=== PATIENT | male | born 1940 | race Caucasian/White ===

== ENCOUNTER 2019-04-06 02:43 | Inpatient (IN) | payer MEDICARE, MEDICAID ==
[~2019-04-06] VITALS: Ht 172.7 cm; Wt 74.8 kg
[~2019-04-06 02:43] MED LIST: BENA20TA9 PO; CALC1TAB49 PO; DIVA250T4 PO; DONE10TA44 PO; METF-441 PO; METO50TA16 PO; QUET25TA PO; SIMV20TA6 PO; SITA100T PO
[2019-04-06] MEDS ORDERED: ACETAMINOPHEN 650 MG/SUPP.RECT RC ONE ×3 (03:00→03:02)
[2019-04-06] MEDS ORDERED: IV NS 0.9% 1,000 ML BAG IV ONE (03:00)
[2019-04-06] MEDS ORDERED: VANCOMYCIN 1 GM in IV D5W 250 ML IV ONE (03:00)
[2019-04-06] MEDS ORDERED: CEFEPIME 1 GM in IV D5W 50 ML IV ONE (03:00)
[2019-04-06] MEDS ORDERED: CEFEPIME 1 GM VIAL ONE (03:01)
[2019-04-06] MEDS ORDERED: VANCOMYCIN 1 GM VIAL ONE (03:01)
[2019-04-06 03:06] LABS: BASOPHILS # (AUTO) 0.1 /CMM (0.0-0.2); BASOPHILS % (AUTO) 0.3 % (0.0-2.0); HEMATOCRIT 51 % (39-51); HEMOGLOBIN 16.2 g/dL (13.5-17.5); LYMPHOCYTES # (AUTO) 1.6 /CMM (0.8-4.8); LYMPHOCYTES % (AUTO) 5.9 % (20.0-44.0); MEAN CORPUSCULAR HGB CONC 32 g/dl (31.0-36.0); MEAN CORPUSCULAR VOLUME 92 fL (80-96); MONOCYTES # (AUTO) 1.2 /CMM (0.1-1.30); MONOCYTES % (AUTO) 4.5 % (2.0-12.0); NEUTROPHILS # (AUTO) 23.8 /CMM (1.8-8.9); NEUTROPHILS % (AUTO) 89.3 % (43.0-81.0); PLATELET COUNT (AUTO) 188 /CMM (150-450); RED BLOOD CELL COUNT(AUTO) 5.62 MIL/uL (4.5-6.0); WHITE BLOOD COUNT (AUTO) 26.7 K/uL (4.3-11.0)
--- NOTE | 2019-04-06 03:12 | NUR ---
MARY FROM [facility] FOR 102.3 FEVER PER EMS, HX OF PNA. TEMP OF 102.8 AT TIME OF ARRIVAL. LINE IN, BLOOD DRAWN, URINE COLLECTED AND SENT TO LAB, CONNECTED TO MONITOR, ORDERS RECEIVED AND CARRIED OUT
[2019-04-06 03:17] LABS: CALCIUM, SERUM 10.2 mg/dL (8.5-10.1); CARBON DIOXIDE 33 mmol/L (21-32); CHLORIDE 124 mmol/L (98-107); CREATININE 2.8 mg/dL (0.6-1.3); GLUCOSE 331 mg/dL (74-106); UREA NITROGEN, BLOOD 67 mg/dL (7-18)
[2019-04-06 03:18] LABS: SODIUM SERUM 168 mmol/L (136-145)
[2019-04-06 03:24] LABS: ALANINE AMINOTRANSFERASE 34 U/L (12-78); ALBUMIN 2.9 g/dL (3.4-5.0); ALKALINE PHOSPHATASE 101 U/L (46-116); ASPARTATE AMINOTRANSFERASE 19 U/L (15-37); BILIRUBIN,DIRECT 0.2 mg/dL (0.0-0.2); BILIRUBIN,TOTAL 0.6 mg/dL (0.2-1.0)
--- NOTE | 2019-04-06 03:28 | NUR ---
CRITICAL LAB CALLED SODIUM 168
--- NOTE | 2019-04-06 04:00 | NUR ---
RT CALLED TO PUT PT ON BIPAP. PT CURRENTLY SATING AT 91% ON NC 4L, INTERMITANTLY DESATING TO 85%
[2019-04-06 04:22] LABS: APPEARANCE,URINE Clear (CLEAR); BILIRUBIN,URINE SMALL (NEGATIVE); BLOOD, URINE Negative Ery/uL (NEGATIVE); COLOR,URINE Dark (YELLOW); KETONES,URINE Trace (NEGATIVE); LEUKOCYTE ESTERASE ,URINE Negative (NEGATIVE); NITRITE, URINE Negative (NEGATIVE); PH,URINE 5.5 (5.0-8.0); PROTEIN,URINE 100 mg/dl (NEGATIVE); UGLUCOSE 500 MG/DL mg/dL (NEGATIVE); UROBILINOGEN,URINE 0.2 EU/dL (0.2)
[2019-04-06 04:47] LABS: BACTERIA,URINE Few /HPF (None Seen); RBC,URINE 21-50 /HPF (0-2); SQUAMOUS EPITHELIAL CELL,UR Rare /HPF (None Seen)
--- NOTE | 2019-04-06 05:26 | NUR ---
Pt rec'd on nasal cannula 5lpm. Pt showed signs of resp distress. PT placed on bipap per Dr Mcfadden request. Pt placed on noted settings as charted. Alarms are set and audible. Vent plugged into red outlet. Ambu bag bedside. Will continue to monitor. Addendum: 04/06/19 at 0640 by MARLEN RAMOS RT Amended: Links added.
--- NOTE | 2019-04-06 05:38 | NUR ---
RT DRAWING ABG AT BEDSIDE
[2019-04-06 05:50] LABS: ABG BASE EXCESS 0.6 mmol/L; ABG OXYGEN SATURATION 90.4 % (92.0-98.5); ABG PCO2 44.7 mmHg (35.0-45.0); ABG PH 7.383 (7.350-7.450); ABG PO2 62.2 mmHg (75.0-100.0); AaDO2 316.4 mmHg; COHb 1.2 % (0.5-1.5); MetHb 0.4 % (0.0-1.5); SITE, ABG Right Radial
--- NOTE | 2019-04-06 05:50 | NUR ---
TRASNFERED TO [place] VIA [facility]SP[facility]
--- NOTE | 2019-04-06 05:55 | NUR ---
BIBPAP 15/5, RESP 12, FIO2 80%
--- NOTE | 2019-04-06 06:20 | NUR ---
RECEIVED PATIENT FROM ER ,LETHARGIC (TRANSPORTED ON NMR 100%) ,BUT PATIENT WAS ON BIPAP IN ER DUE TO LOW O2.pATIENT IS DNI/DNR. PRESENTED TO ER FROM [facility] DUE TO FEVER OF 102.3. IN ER TEMP STILL HIGH 102.8 WAS GIVEN TYLENOL. LACTIC ACID WAS 2.7,GIVEN TOTAL2.5 LITERS BOLUS.
[2019-04-06] MEDS ORDERED: IV D5W 1,000 ML IV PRN (06:23)
[2019-04-06] MEDS ORDERED: QUETIAPINE FUMARATE 25 MG TABLET PO PRN ×2 (06:30→07:30)
[2019-04-06] MEDS ORDERED: ENOXAPARIN SODIUM 40 MG/0.4 ML DISP.SYRIN SQ SCH (06:30)
[2019-04-06] MEDS ORDERED: Z GUARD REMEDY 2 OZ OINT TP PRN (06:30)
[2019-04-06] MEDS ORDERED: ONDANSETRON HCL/PF 4 MG/2 ML VIAL IVP PRN (06:30)
--- NOTE | 2019-04-06 07:00 | NUR ---
REPORT GIVEN TO FAWAD SILVA.
[2019-04-06 08:00] VITALS: BP 118/69
[2019-04-06] MEDS ORDERED: FEE PK DOSING 1 MIN EA MC ONE (08:18)
--- NOTE | 2019-04-06 08:30 | NUR ---
RN NOTE: PATIENT RECEIVED ASLEEP, ABLE TO OPEN EYES TO VERBAL & TACTILE STIMULI. CONTINUE WITH BIPAP, SETTINGS TOLERATING WELL. SAFETY MEASURES OBSERVED. ASPIRATION PRECAUTIONS OBSERVED. IV FLUIDS RUNNING ORDERED BY . LOERA CATH DRAINING WITH GRAVITY. CONTINUE TO TURN & REPOSITION Q2H. CONTINUE WITH PLAN OF CARE.
[2019-04-06] MEDS: METOPROLOL SUCCINATE 50 MG TAB.SR.24H PO SCH ×3 (09:00→21:37)
[2019-04-06] MEDS ORDERED: ENOXAPARIN SODIUM 30 MG/0.3 ML DISP.SYRIN SQ SCH (09:00)
[2019-04-06] MEDS ORDERED: MEROPENEM 500 MG in IV NS 0.9% 50 ML IV ONE (09:00)
[2019-04-06] MEDS: DIVALPROEX SODIUM 250 MG TABLET.DR PO SCH ×2 (09:00→12:39)
[2019-04-06] MEDS: HEPARIN SODIUM, PORCINE 5000 UNITS/1 ML VIAL SQ SCH ×2 (09:12→21:38)
[2019-04-06] MEDS ORDERED: DEXTROSE 50%-WATER 50 ML DISP.SYRIN IV PRN (09:30)
[2019-04-06] MEDS: IV 1/2NS 1000 ML 1,000 ML IV PRN ×2 (09:51→21:12)
[2019-04-06 11:15] LABS: CARBON DIOXIDE 28 mmol/L (21-32); CREATININE 2.4 mg/dL (0.6-1.3); POTASSIUM 4.2 mmol/L (3.5-5.1); UREA NITROGEN, BLOOD 68 mg/dL (7-18)
[2019-04-06 11:18] LABS: CHLORIDE 128 mmol/L (98-107); GLUCOSE 439 mg/dL (74-106); SODIUM SERUM 167 mmol/L (136-145)
[2019-04-06] MEDS: BLOOD SUGAR DIAGNOSTIC 1 EACH STRIP IN SCH ×2 (11:42→17:19)
[2019-04-06] MEDS: INSULIN REGULAR, HUMAN 100 UNIT/ML 3 ML VIAL SQ PRN ×2 (11:43→17:20)
[2019-04-06 12:00] VITALS: BP 122/56
[2019-04-06 13:09] LABS: CREATININE, URINE 335.2 MG/DL (30.0-125.0); URINE TOTAL PROTEIN 111.1 mg/dL (0-11.9)
[2019-04-06 13:42] LABS: APPEARANCE,URINE Cloudy (CLEAR); BILIRUBIN,URINE SMALL (NEGATIVE); BLOOD, URINE Large Ery/uL (NEGATIVE); COLOR,URINE Yellow (YELLOW); KETONES,URINE Trace (NEGATIVE); LEUKOCYTE ESTERASE ,URINE Negative (NEGATIVE); NITRITE, URINE Negative (NEGATIVE); PROTEIN,URINE 100 mg/dl (NEGATIVE); UGLUCOSE 100 MG/DL mg/dL (NEGATIVE); UROBILINOGEN,URINE 0.2 EU/dL (0.2)
[2019-04-06 15:06] LABS: RBC,URINE 40-50 /HPF (0-2)
[2019-04-06 15:07] LABS: BACTERIA,URINE Moderate /HPF (None Seen)
[2019-04-06 15:08] LABS: EOSINOPHIL,URINE None Seen; SQUAMOUS EPITHELIAL CELL,UR Few /HPF (None Seen)
--- NOTE | 2019-04-06 15:09 | NUR ---
RT NOTE PT REMAINS ON BIPAP ON SETTINGS PRESCRIBED. ALARMS SET PER PROTOCOL AND AUDIBLE. BIPAP PLUGGED IN TO RED OUTLET. AMBU BAG AT BED SIDE. NO DISTRESS NOTED. Addendum: 04/06/19 at 1512 by SHANTEL VIEIRA RT Amended: Links added.
[2019-04-06 16:00] VITALS: BP 114/67
[2019-04-06 16:06] VITALS: BP 114/67
[2019-04-06] MEDS: MEROPENEM 500 MG in IV NS 0.9% 100 ML IV SCH (17:19)
[2019-04-06 20:00] VITALS: BP 116/70
--- NOTE | 2019-04-06 20:00 | NUR ---
RN NOTES RECEIVED PATIENT ASLEEP ON BED WITH BIPAP 15/5 RATE 12 FIO2 80%, NO APPARENT DISTRESS. LETHARGIC ABLE TO OPEN EYES. ST ON TELE MONITOR. AFEBRILE. WITH IV SITE ON RAC G 18 WITH 1/2 NS @ 125 ML/HR TOLERATED WELL. BILATERAL RESTRAINT IN PLACE CIRCULATION CHECKED. TURNED AND REPOSITIONED FOR SKIN MANAGEMENT. KEPT PT CLEAN AND DRY. BED IN LOW AND LOCKED POSITION. WILL CONTINUE TO MONITOR FOR ANY CHANGES.
[2019-04-06] MEDS: VALPROATE 250 MG in IV NS 0.9% 100 ML IV SCH (21:32)
[2019-04-06] MEDS: SIMVASTATIN 20 MG TABLET PO SCH ×2 (21:33→21:53)
[2019-04-06] MEDS: DONEPEZIL 5 MG TABLET PO SCH ×2 (21:33→21:53)
[2019-04-07] VITALS: BP 110/62
[2019-04-07] MEDS: INSULIN REGULAR, HUMAN 100 UNIT/ML 3 ML VIAL SQ PRN ×4 (01:40→18:11)
[2019-04-07 04:00] VITALS: BP 125/59
[2019-04-07] MEDS: VALPROATE 250 MG in IV NS 0.9% 100 ML IV SCH ×3 (04:51→22:27)
--- NOTE | 2019-04-07 05:10 | NUR ---
rt unable to complete ekg due to pt agitation
--- NOTE | 2019-04-07 05:14 | NUR ---
pt removed from bipap and placed on n/c 6l. no resp distress noted. Addendum: 04/07/19 at 0514 by VIRIDIANA GARZON Amended: Links added.
[2019-04-07] MEDS: MEROPENEM 500 MG in IV NS 0.9% 100 ML IV SCH ×2 (05:42→17:56)
[2019-04-07] MEDS: BLOOD SUGAR DIAGNOSTIC 1 EACH STRIP IN SCH ×4 (05:42→18:06)
--- NOTE | 2019-04-07 07:00 | NUR ---
RN NOTES PATIENT ASLEEP ,RESTLESSNESS PRESENT ON BED MOVING AROUND THE BED . PATIENT REMAINED NON VERBAL. OPENS EYES. BIPAP OFF AND PLACED ON O2 5LPM VIA NC AND TOLERATED WELL. NSR ON TELE MONITOR. AFEBRILE. VSS. CONTINUE ON IVF ORDERED. IV SITE INTACT AND PATENT. F/C DRAINED WELL WITH BRADLEY COLOR URINE. KEPT OFF FROM THE FLOOR. BED KEPT IN LOWEST POSSIBLE POSITION. PADDED SIDERAILS , NO EPISODE OF SEIZURE PRESENT. KEPT PT CLEAN AND DRY. ENDORSED CONTINUITY OF CARE TO AM NURSE.
[2019-04-07 07:03] LABS: BASOPHILS % (AUTO) 0.2 % (0.0-2.0); HEMATOCRIT 43 % (39-51); HEMOGLOBIN 13.1 g/dL (13.5-17.5); LYMPHOCYTES # (AUTO) 1.7 /CMM (0.8-4.8); LYMPHOCYTES % (AUTO) 8.6 % (20.0-44.0); MEAN CORPUSCULAR HGB CONC 31 g/dl (31.0-36.0); MEAN CORPUSCULAR VOLUME 91 fL (80-96); MONOCYTES # (AUTO) 1.2 /CMM (0.1-1.30); MONOCYTES % (AUTO) 6.1 % (2.0-12.0); NEUTROPHILS # (AUTO) 17.1 /CMM (1.8-8.9); NEUTROPHILS % (AUTO) 85.1 % (43.0-81.0); PLATELET COUNT (AUTO) 119 /CMM (150-450); RED BLOOD CELL COUNT(AUTO) 4.65 MIL/uL (4.5-6.0); WHITE BLOOD COUNT (AUTO) 20.1 K/uL (4.3-11.0)
--- NOTE | 2019-04-07 07:20 | NUR ---
RN INITIAL NOTE RECEIVED BEDSIDE REPORT, PATIENT IN BED, ASLEEP BUT EASILY AROUSABLE. OPENS EYES. DOES NOT FOLLOW COMMANDS, VERY LETHARGIC. PER NOC SHIFT. THIS IS THE PATIENT'S BASELINE. ON 5L NC, SATING WELL AT 95%. ON TELE MONITOR, SR. PATIENT HAS BILATERAL WRIST RESTRAINTS. HAS RIGHT AC #18 WITH HALF NS AT 125 ML/HR. NO SIGNS OF ANY DISTRESS. HAS LOERA CATH WITH CLEAR AND YELLOW URINE. BED LOCKED AND IN LOWEST POSITION. CALL LIGHT WITHIN REACH. WILL CONTINUE TO MONITOR CLOSELY
[2019-04-07 07:36] LABS: ALANINE AMINOTRANSFERASE 19 U/L (12-78); ALBUMIN 2.1 g/dL (3.4-5.0); ALKALINE PHOSPHATASE 82 U/L (46-116); ASPARTATE AMINOTRANSFERASE 22 U/L (15-37); BILIRUBIN,TOTAL 0.5 mg/dL (0.2-1.0); CALCIUM, SERUM 8.8 mg/dL (8.5-10.1); CARBON DIOXIDE 29 mmol/L (21-32); CREATININE 1.9 mg/dL (0.6-1.3); GLUCOSE 224 mg/dL (74-106); MAGNESIUM 2.1 mg/dL (1.8-2.4); PHOSPHORUS 2.8 mg/dL (2.5-4.9); POTASSIUM 3.3 mmol/L (3.5-5.1); TOTAL PROTEIN, SERUM 6.7 g/dL (6.4-8.2); UREA NITROGEN, BLOOD 60 mg/dL (7-18)
[2019-04-07 07:43] LABS: CHLORIDE 127 mmol/L (98-107); SODIUM SERUM 166 mmol/L (136-145)
[2019-04-07 07:44] LABS: CHOLESTEROL 91 mg/dL (<200); CREATINE KINASE, TOTAL 637 U/L (39-308); HDL CHOLESTEROL 30 mg/dL (40-60); IRON, SERUM 13 ug/dl (50-175); LDL 47 mg/dL (0-99); THYROID STIMULATING HORMONE 1.503 uIU/mL (0.358-3.74); TOTAL IRON BINDING CAPACITY 130 ug/dl (250-450); TRIGLYCERIDES 103 mg/dL (30-150)
[2019-04-07 08:00] VITALS: BP 136/80
--- NOTE | 2019-04-07 08:02 | NUR ---
WOUND CARE CONSULT: PT PRESENTS WITH ABRASION TO LEFT ARM, SACRAL BONY AREA WITH REDNESS (BLANCHABLE), INCONTINENCE ASSOCIATED SKIN DAMAGE TO BUTTOCKS WITH RASH TO BUTTOCKS AND PERINEUM AND INTACT DEEP TISSUE INJURY TO NASAL BRIDGE, ALL PRESENT ON ADMISSION. PT PREVIOUSLY WAS ON BIPAP. LOERA CATH NOTED. RECOMMENDATIONS MADE FOR SKIN PROTECTION AND WOUND CARE. DISCUSSED WITH NURSING STAFF. PT ON [place] ISOFLEX LOW AIRLOSS BED. CURRENT MEMO SCORE IS 14. WILL SEE PRN. SINGLETON IN AGREEMENT WITH PLAN OF CARE. Addendum: 04/07/19 at 0805 by KEI CASTANEDA WNDNU Amended: Links added.
[2019-04-07] MEDS: ASPIRIN EC 81 MG TABLET.DR PO SCH ×2 (08:55→09:27)
[2019-04-07] MEDS: METOPROLOL SUCCINATE 50 MG TAB.SR.24H PO SCH ×3 (08:55→22:27)
[2019-04-07] MEDS: IV D5W 1,000 ML IV PRN (08:59)
[2019-04-07] MEDS: HEPARIN SODIUM, PORCINE 5000 UNITS/1 ML VIAL SQ SCH ×2 (09:02→22:28)
[2019-04-07] MEDS: CLOTRIMAZOLE 1% 15 GM TUBE TP SCH ×2 (09:29→16:15)
--- NOTE | 2019-04-07 09:30 | NUR ---
RN NOTE TALKED TO PATIENT'S EX , STATING SHE IS THE PATIENT'S DPOA. PER EX , PATIENT HAD A RECENT CVA, ~A WEEK AGO. SPEECH THERAPIST AT BEDSIDE. WAS ABLE TO TOLERATE PUREED DIET WITH HONEY THICK LIQUIDS. WAS ABLE TO GIVE MORNING MEDS, CRUSHED WITH APPLE SAUCE. WOUND CARE NURSE ALSO SEEN PATIENT - TO GIVE LOTRIMIN CREAM, Z GUARD AND COVER WITH MEPILEX FOR PROTECTION OF SACRUM
[2019-04-07 10:37] LABS: ABG OXYGEN SATURATION 88.1 % (92.0-98.5); ABG PCO2 39.1 mmHg (35.0-45.0); ABG PH 7.414 (7.350-7.450); ABG PO2 55.7 mmHg (75.0-100.0); AaDO2 47.2 mmHg; COHb 0.3 % (0.5-1.5); MetHb 0.4 % (0.0-1.5); O2Hb 87.5 % (94.0-97.0); SITE, ABG Right Brachial; VENT MODE, BG room air
[2019-04-07] MEDS ORDERED: POTASSIUM CHLORIDE 10 MEQ TABLET.SA PO ONE (11:30)
[2019-04-07] MEDS ORDERED: VANCOMYCIN 1 GM in IV D5W 250 ML IV SCH (15:00)
[2019-04-07 16:00] VITALS: BP 114/73
--- NOTE | 2019-04-07 18:45 | NUR ---
RN CLOSING NOTE PATIENT IN BED, ASLEEP BUT EASILY AROUSABLE. ALERT AND ORIENTED X1 ONLY. ON 5L NC, SATING WELL >95%. HOB AT 40 DEGREES AT ALL TIMES FOR ASPIRATION PRECAUTIONS. ON BILATERAL RESTRAINTS TO BE RENEWED AT 0650. HAS A RIGHT AC #18 WITH D5W RUNNING AT 125 ML/HR. LAST ACCUCHECK WAS 371, INSULIN COVERAGE GIVEN 10 UNITS. K WAS REPLACED PO. NA 166, AWARE. WOUND TX DONE. REPOSITIONED PATIENT PER PROTOCOL. HAS LOERA CATH WITH 850 ML OUTPUT. HAD 1X BM. BIPAP AT NIGHT AND PER WOUND CARE NURSE - APPLY MEPILEX OVER NASAL BRIDGE FOR PROTECTION. PATIENT HAD A RECENT CVA LAST 02/2019. EKG DONE TODAY - SR. WILL ENDORSE TO NOC SHIFT FOR EDA
[2019-04-07 20:00] VITALS: BP 103/63
--- NOTE | 2019-04-07 20:00 | NUR ---
RN INITIAL NOTE RECEIVED BEDSIDE REPORT, PATIENT IN BED, AWAKE , OPENS EYES. DOES NOT FOLLOW COMMANDS, VERY LETHARGIC AND PER AM SHIFT RN THIS IS THE PATIENT'S BASELINE. ON 5L NC, SATING WELL AT 96%. ON TELE MONITOR, SR. PATIENT HAS BILATERAL WRIST RESTRAINTS. HAS RIGHT AC #18 WITH HALF NS AT 125 ML/HR. NO SIGNS OF ANY DISTRESS. HAS LOERA CATH WITH CLEAR AND YELLOW URINE. BED LOCKED AND IN LOWEST POSITION. CALL LIGHT WITHIN REACH. WILL CONTINUE TO MONITOR CLOSELY
[2019-04-07] MEDS: DONEPEZIL 5 MG TABLET PO SCH (22:25)
[2019-04-07] MEDS: SIMVASTATIN 20 MG TABLET PO SCH (22:27)
[2019-04-07] MEDS: ACETAMINOPHEN 325 MG TABLET PO PRN (22:37)
--- NOTE | 2019-04-08 00:15 | NUR ---
RN NOTES PATIENT IS IN PAIN . CALLED MD NAVARRO AND NEW ORDER OF NORCO 5-[address] WILL CONTINUE TO MONITOR PATIENT CLOSELY.
[2019-04-08] MEDS: HYDROCODONE/APAP 5/325MG 1 EACH TABLET PO PRN (00:35)
[2019-04-08] MEDS: BLOOD SUGAR DIAGNOSTIC 1 EACH STRIP IN SCH ×5 (00:35→23:46)
[2019-04-08] MEDS: INSULIN REGULAR, HUMAN 100 UNIT/ML 3 ML VIAL SQ PRN ×5 (00:47→23:44)
[2019-04-08] MEDS: IV D5W 1,000 ML IV PRN ×2 (01:17→12:36)
--- NOTE | 2019-04-08 02:00 | NUR ---
PATIENT REPORT IS GIVEN TO RICARDO BARKER TRANSFER OF CARE. NO CHANGES NOTED WITH THE PATIENT.
[2019-04-08 04:00] VITALS: BP 125/67
[2019-04-08] MEDS: MEROPENEM 500 MG in IV NS 0.9% 100 ML IV SCH ×2 (05:40→21:00)
[2019-04-08] MEDS: VALPROATE 250 MG in IV NS 0.9% 100 ML IV SCH ×2 (05:40→12:26)
[2019-04-08 06:53] LABS: BASOPHILS # (AUTO) 0.1 /CMM (0.0-0.2); BASOPHILS % (AUTO) 0.6 % (0.0-2.0); EOSINOPHILS % (AUTO) 1.9 % (0.0-6.0); HEMATOCRIT 39 % (39-51); HEMOGLOBIN 12.5 g/dL (13.5-17.5); LYMPHOCYTES # (AUTO) 1.6 /CMM (0.8-4.8); LYMPHOCYTES % (AUTO) 7.9 % (20.0-44.0); MEAN CORPUSCULAR HGB CONC 32 g/dl (31.0-36.0); MEAN CORPUSCULAR VOLUME 91 fL (80-96); MONOCYTES % (AUTO) 5.1 % (2.0-12.0); NEUTROPHILS # (AUTO) 16.8 /CMM (1.8-8.9); NEUTROPHILS % (AUTO) 84.5 % (43.0-81.0); PLATELET COUNT (AUTO) 110 /CMM (150-450); RED BLOOD CELL COUNT(AUTO) 4.26 MIL/uL (4.5-6.0); WHITE BLOOD COUNT (AUTO) 19.9 K/uL (4.3-11.0)
--- NOTE | 2019-04-08 07:00 | NUR ---
PATIENT REMAINED IN BED, RESTING COMFORTABLY, ON BIPAP WITH PRESCRIBED SETTINGS, TOLERATING WELL, O2 SATURATION 98%, NO S/S OF PAIN NOTED. ALL DUE MEDS GIVEN ORDERED, TOLERATED WELL. ALL NEEDS ATTENDANT, SAFETY MAINTAINED, BED AT THE LOWEST LOCKED POSITION. WILL ENDORSE TO AM SHIFT NURSE FOR EDA.
[2019-04-08 07:01] LABS: ALANINE AMINOTRANSFERASE 22 U/L (12-78); ALBUMIN 1.9 g/dL (3.4-5.0); ALKALINE PHOSPHATASE 78 U/L (46-116); ASPARTATE AMINOTRANSFERASE 27 U/L (15-37); BILIRUBIN,TOTAL 0.6 mg/dL (0.2-1.0); CALCIUM, SERUM 8.3 mg/dL (8.5-10.1); CARBON DIOXIDE 28 mmol/L (21-32); CHLORIDE 124 mmol/L (98-107); CREATININE 1.5 mg/dL (0.6-1.3); GLUCOSE 294 mg/dL (74-106); MAGNESIUM 2.3 mg/dL (1.8-2.4); PHOSPHORUS 2.4 mg/dL (2.5-4.9); POTASSIUM 3.1 mmol/L (3.5-5.1); TOTAL PROTEIN, SERUM 6.3 g/dL (6.4-8.2); UREA NITROGEN, BLOOD 45 mg/dL (7-18)
--- NOTE | 2019-04-08 07:15 | NUR ---
MS RN OPENING NOTES RECEIVED PT LYING ON BED WITH NOCTURNAL BIPAP.PT IS AWAKE AND LETHARGIC.NO SOB AND ACUTE DISTRESS NOTED.RESTRAINTS PRESENT ON LEFT WRIST.IV LINE IS ON RIGHT AC G18 WITH D5W@125ML/HR.SITE IS CLEAN,DRY AND INTACT.NO INFILTRATION NOTED.BED IS IN LOW POSITION AND LOCKED.CALL LIGHT IS WITHIN REACH.WILL CONTINUE TO MONITOR THE PT CLOSELY.
[2019-04-08 07:26] LABS: SODIUM SERUM 160 mmol/L (136-145)
[2019-04-08 08:00] VITALS: BP 127/84
[2019-04-08] MEDS: ASPIRIN EC 81 MG TABLET.DR PO SCH (08:33)
[2019-04-08] MEDS: METOPROLOL SUCCINATE 50 MG TAB.SR.24H PO SCH ×2 (08:34→21:08)
[2019-04-08] MEDS: HEPARIN SODIUM, PORCINE 5000 UNITS/1 ML VIAL SQ SCH ×2 (08:48→21:09)
[2019-04-08] MEDS: CLOTRIMAZOLE 1% 15 GM TUBE TP SCH ×2 (08:50→17:19)
[2019-04-08 10:34] LABS: ABG BASE EXCESS -1.8 mmol/L; ABG OXYGEN SATURATION 92.8 % (92.0-98.5); ABG PCO2 38.2 mmHg (35.0-45.0); ABG PH 7.393 (7.350-7.450); ABG PO2 68.2 mmHg (75.0-100.0); AaDO2 173.1 mmHg; COHb 0.6 % (0.5-1.5); MetHb 0.4 % (0.0-1.5); O2Hb 91.9 % (94.0-97.0); SITE, ABG Left Radial; VENT MODE, BG nasal cannula
--- NOTE | 2019-04-08 10:46 | NUR ---
MS RN NOTES ABG RESULT INFORMED TO ,NO NEW ORDERS NOTED.
[2019-04-08] MEDS ORDERED: POTASSIUM CHLORIDE 10 MEQ TABLET.SA PO ONE (11:30)
[2019-04-08] MEDS ORDERED: K PHOS NEUTRAL 250 MG TABLET PO ONE (11:30)
[2019-04-08] MEDS ORDERED: POTASSIUM CHLORIDE 20 MEQ POWDER PACKET PO ONE (12:00)
[2019-04-08 12:09] LABS: *SPE A/G RATIO 0.7 (0.7-1.7); *SPE ALBUMIN 2.5 g/dL (2.9-4.4); *SPE ALPHA-1-GLOBULIN 0.4 g/dL (0.0-0.4); *SPE GLOBULIN, TOTAL 3.7 g/dL (2.2-3.9); *SPE M-SPIKE Not Observed g/dL (Not Observed); *SPEGAMMA GLOBULIN 1.4 g/dL (0.4-1.8); PTH, INTACT 102 pg/mL (15-65)
[2019-04-08 16:00] VITALS: BP 105/59
[2019-04-08] MEDS ORDERED: VANCOMYCIN 1.25 GM in IV D5W 250 ML IV SCH (16:00)
--- NOTE | 2019-04-08 16:30 | NUR ---
MS RN NOTED PT NOTED WITH PERIPHERAL IV LINE IS OUT AND NOT WORKING,TRYING TO INSERT THE PERIPHERAL IV LINEX4,COULDN'T ABLE TO INSERT.CHARGE NURSE MADE AWARE.MD MICHAELA GAN MADE AWARE AND ORDERED TO INSERT MIDLINE.
[2019-04-08] MEDS: LACTOBACILLUS RHAMNOSUS GG 1 EACH CAP.SPRINK PO SCH (17:19)
--- NOTE | 2019-04-08 17:30 | NUR ---
MS RN NOTES NURSING ACCOUNTS RECEIVABLE ADMINISTRATOR MADE AWARE ABOUT THE MIDLINE INSERTION,ORDERED TO CALL ICU STAFF TO TRY IT FIRST BEFORE THE MIDLINE NURSE WILL COME.
--- NOTE | 2019-04-08 17:45 | NUR ---
MS RN NOTES CHARGE NURSE CALLED ICU UNIT TO GET THE STAFF TO INSERT IV LINE.
--- NOTE | 2019-04-08 18:30 | NUR ---
MS RN NOTES AMARJIT,INFECTIOUS DISEASE WARP KNIT OPERATOR MADE AWARE ABOUT THE HOLDING OF PM ANTIBIOTICS BECAUSE OF NOT GETTING THE PERIPHERAL IV LINE.
--- NOTE | 2019-04-08 18:57 | NUR ---
MS RN NOTES PHARMACIST MS PIERCE MADE AWARE ABOUT THAT NONADMINISTRATION OF IV MEDICINES BECAUSE TO WAIT MIDLINE INSERTION,TOLD LET HER KNOW AFTER ITS DONE TO CHANGE THE IV MEDICINES TIME.
--- NOTE | 2019-04-08 19:15 | NUR ---
MS RN NOTES PT IS LYING ON BED WITH LEFT WRIST RESTRAINTS.NO SOB AND ACUTE DISTRESS NOTED IN 5LPM O2 VIA NC CONTINUOUSLY.NO SIGNIFICANT CHANGES NOTED IN THE SHIFT.ENDORSED TO DIRECTOR VISUAL RN FOR EDA.
--- NOTE | 2019-04-08 19:19 | NUR ---
MS RICARDO LAMBERT RN IN ICU INSERTED THE IV LINE ON RIGHT WRIST G22,GOOD BLOOD RETURN.NO S/S INFILTRATION NOTED. Addendum: 04/08/19 at 1928 by DINORA PLUMMER RN ENDORSED TO LEAD SYSTEMS ENGINEER RICARDO MESA TO CALL THE PHARMACY TO GET IV MEDICINES.
--- NOTE | 2019-04-08 19:37 | NUR ---
MS RN CLOSING NOTES PT IS LYING ON BED.NO SOB AND ACUTE DISTRESS NOTED IN 5LPM O2 VIA NC CONTINUOUSLY.NO SIGNIFICANT CHANGES NOTED IN THE SHIFT.ENDORSED TO WET PROCESS ASSISTANT HEAD MILLER RN FOR EDA.
[2019-04-08] MEDS: VANCOMYCIN 1.25 GM in IV D5W 250 ML IV SCH (20:16)
[2019-04-08] MEDS: SIMVASTATIN 20 MG TABLET PO SCH (21:07)
[2019-04-08] MEDS: DONEPEZIL 5 MG TABLET PO SCH (21:07)
[2019-04-09] VITALS: BP 123/59
[2019-04-09] MEDS: VALPROATE 250 MG in IV NS 0.9% 100 ML IV SCH ×2 (01:25→04:54)
[2019-04-09] MEDS: BLOOD SUGAR DIAGNOSTIC 1 EACH STRIP IN SCH ×4 (05:36→23:10)
[2019-04-09] MEDS: INSULIN REGULAR, HUMAN 100 UNIT/ML 3 ML VIAL SQ PRN ×4 (05:39→23:07)
[2019-04-09 07:56] LABS: ALBUMIN 1.8 g/dL (3.4-5.0); BILIRUBIN,TOTAL 0.5 mg/dL (0.2-1.0); CREATININE 1.2 mg/dL (0.6-1.3); MAGNESIUM 2.2 mg/dL (1.8-2.4); PHOSPHORUS 2.6 mg/dL (2.5-4.9); POTASSIUM 3.8 mmol/L (3.5-5.1); TOTAL PROTEIN, SERUM 6.2 g/dL (6.4-8.2)
[2019-04-09 08:00] VITALS: BP 130/61
[2019-04-09 08:26] LABS: BASOPHILS # (AUTO) 0.1 /CMM (0.0-0.2); BASOPHILS % (AUTO) 0.5 % (0.0-2.0); EOSINOPHILS % (AUTO) 2.7 % (0.0-6.0); HEMATOCRIT 38 % (39-51); HEMOGLOBIN 12.2 g/dL (13.5-17.5); LYMPHOCYTES # (AUTO) 1.3 /CMM (0.8-4.8); LYMPHOCYTES % (AUTO) 9.7 % (20.0-44.0); MEAN CORPUSCULAR HGB CONC 32 g/dl (31.0-36.0); MEAN CORPUSCULAR VOLUME 91 fL (80-96); MONOCYTES # (AUTO) 0.6 /CMM (0.1-1.30); MONOCYTES % (AUTO) 4.3 % (2.0-12.0); NEUTROPHILS # (AUTO) 10.7 /CMM (1.8-8.9); NEUTROPHILS % (AUTO) 82.8 % (43.0-81.0); PLATELET COUNT (AUTO) 124 /CMM (150-450); RED BLOOD CELL COUNT(AUTO) 4.24 MIL/uL (4.5-6.0)
[2019-04-09] MEDS: MEROPENEM 500 MG in IV NS 0.9% 100 ML IV SCH ×2 (10:03→21:37)
[2019-04-09] MEDS: LACTOBACILLUS RHAMNOSUS GG 1 EACH CAP.SPRINK PO SCH ×2 (10:03→17:04)
[2019-04-09] MEDS: METOPROLOL SUCCINATE 50 MG TAB.SR.24H PO SCH ×2 (10:04→21:33)
[2019-04-09] MEDS: CLOTRIMAZOLE 1% 15 GM TUBE TP SCH ×2 (10:04→17:06)
[2019-04-09] MEDS: ASPIRIN EC 81 MG TABLET.DR PO SCH (10:04)
[2019-04-09] MEDS: HEPARIN SODIUM, PORCINE 5000 UNITS/1 ML VIAL SQ SCH ×2 (10:05→21:36)
[2019-04-09] MEDS: ACETAMINOPHEN 325 MG TABLET PO PRN (10:16)
[2019-04-09 12:00] VITALS: BP 127/63
--- NOTE | 2019-04-09 12:45 | NUR ---
Patient handoff report to RICARDO Araujo. Saurav Aguirre RN Addendum: 04/09/19 at 1334 by SAURAV LEMA RN Entry in error, disregard above note
[2019-04-09] MEDS: DIVALPROEX SODIUM 250 MG TABLET.DR PO SCH ×2 (13:12→17:04)
[2019-04-09] MEDS: QUETIAPINE FUMARATE 25 MG TABLET PO SCH ×2 (13:15→17:04)
[2019-04-09 16:00] VITALS: BP 124/65
--- NOTE | 2019-04-09 19:05 | NUR ---
MS RN NOTE RECEIVED PT WITH NEW ORDER FOR DNR FROM MELCHOR SILVA. PT IN STABLE CONDITION, CURRENTLY RESTING IN BED. NO SIGNS OF SOB OR DISTRESS, NO INDICATIONS OF PAIN OR N/V. NOTED WITH NGTUBE WITH FEEDING RUNNING, TOLERATING WELL, MINIMAL RESIDUAL. IV IN R HAND #[address] WITH IVF INFUSING. ALL CURREN NEEDS ATTENDED TO. SAFETY PRECAUTIONS IN PLACE. WILL CONT TO MONITOR.
--- NOTE | 2019-04-09 19:31 | NUR ---
Handoff for pt with night RN. Saurav Aguirre RN
[2019-04-09] MEDS: VANCOMYCIN 1.25 GM in IV D5W 250 ML IV SCH (19:57)
[2019-04-09 20:00] VITALS: BP 132/81
[2019-04-09] MEDS: SIMVASTATIN 20 MG TABLET PO SCH (21:32)
[2019-04-09] MEDS: DONEPEZIL 5 MG TABLET PO SCH (21:33)
--- NOTE | 2019-04-09 22:42 | NUR ---
RT NOTE PLACED PT ON BIPAP AT THIS TIME. MASK SECURED WITH MEPELIX. NO SOB NOTED. CONT. POX CONNECTED. TITRATED FIO2 TO 30%. NURSE, MIKA, AWARE. WILL MONITOR T/O SHIFT. Addendum: 04/09/19 at 2243 by SMITA NAVARRETE RT Amended: Links added.
--- NOTE | 2019-04-09 23:20 | NUR ---
MS RN NOTE NG TUBE CHECKED WITH MINIMAL RESIDUAL, PT FEEDING INCREASES TO 40 ML/HR UNTIL GOAL OF 50 ML/HR MET. WILL CONT TO MONITOR.
[2019-04-10] VITALS: BP 135/60
--- NOTE | 2019-04-10 02:00 | NUR ---
MS RN NOTE PER VIVIEN FOSTER. D/C D5W AND START WATER FLUSH 250 ML Q6H VIA NG TUBE. NEW ORDERS CARRIED OUT.
--- NOTE | 2019-04-10 02:50 | NUR ---
MS RN NOTE REASSESSED NG TUBE FEEDING. MINIMAL RESIDUAL NOTED. FEEDING INCREASED TO 50 ML/HR GOAL. WILL CONT TO MONITOR.
[2019-04-10] MEDS: INSULIN REGULAR, HUMAN 100 UNIT/ML 3 ML VIAL SQ PRN ×3 (05:07→17:21)
[2019-04-10] MEDS: BLOOD SUGAR DIAGNOSTIC 1 EACH STRIP IN SCH ×3 (05:07→17:20)
--- NOTE | 2019-04-10 05:30 | NUR ---
MS RN NOTE BIPAP REMOVED, AND PT PLACED BACK ON NC 5L WITH O2 SAT OF 95%, WILL CONT. TO MONITOR.
--- NOTE | 2019-04-10 06:17 | NUR ---
MS RN NOTE PT REMAINS IN STABLE CONDITION, CURRENTLY RESTING IN BED. PATIENT NOTED WITH L WRIST RESTRAINT, PT ASSESSED THROUGHOUT SHIFT. ORDER TO BE RENEWED AT 1342. NO SIGNS OF SOB OR DISTRESS ON 02 NC 5L, NO INDICATIONS OF PAIN OR N/V. NOTED WITH NGTUBE WITH FEEDING RUNNING, TOLERATING WELL, MINIMAL RESIDUAL. LOERA IN PLACE WITH 400 ML OF CLEAR YELLOW URINE OUT. IV IN L HAND #[address] S/L. ALL CURRENT NEEDS ATTENDED TO. SAFETY PRECAUTIONS IN PLACE. WILL CONT TO MONITOR AND ENDORSE TO NEXT SHIFT FOR EDA.
[2019-04-10 06:51] LABS: BASOPHILS % (AUTO) 0.4 % (0.0-2.0); EOSINOPHILS % (AUTO) 2.6 % (0.0-6.0); HEMATOCRIT 39 % (39-51); HEMOGLOBIN 12.4 g/dL (13.5-17.5); LYMPHOCYTES # (AUTO) 1.1 /CMM (0.8-4.8); LYMPHOCYTES % (AUTO) 11.3 % (20.0-44.0); MEAN CORPUSCULAR HGB CONC 32 g/dl (31.0-36.0); MEAN CORPUSCULAR VOLUME 90 fL (80-96); MONOCYTES # (AUTO) 0.4 /CMM (0.1-1.30); MONOCYTES % (AUTO) 4.7 % (2.0-12.0); NEUTROPHILS # (AUTO) 7.6 /CMM (1.8-8.9); PLATELET COUNT (AUTO) 133 /CMM (150-450); RED BLOOD CELL COUNT(AUTO) 4.32 MIL/uL (4.5-6.0); WHITE BLOOD COUNT (AUTO) 9.4 K/uL (4.3-11.0)
[2019-04-10 07:14] LABS: ALBUMIN 1.8 g/dL (3.4-5.0); BILIRUBIN,TOTAL 0.5 mg/dL (0.2-1.0); CALCIUM, SERUM 8.4 mg/dL (8.5-10.1); CREATININE 1.2 mg/dL (0.6-1.3); MAGNESIUM 2.3 mg/dL (1.8-2.4); PHOSPHORUS 2.2 mg/dL (2.5-4.9); POTASSIUM 3.5 mmol/L (3.5-5.1); TOTAL PROTEIN, SERUM 6.5 g/dL (6.4-8.2)
[2019-04-10 08:00] VITALS: BP 131/92
[2019-04-10] MEDS: ASPIRIN EC 81 MG TABLET.DR PO SCH (08:32)
[2019-04-10] MEDS: LACTOBACILLUS RHAMNOSUS GG 1 EACH CAP.SPRINK PO SCH ×2 (08:33→16:51)
[2019-04-10] MEDS: MEROPENEM 500 MG in IV NS 0.9% 100 ML IV SCH ×2 (08:33→20:36)
[2019-04-10] MEDS: DIVALPROEX SODIUM 250 MG TABLET.DR PO SCH ×3 (08:33→16:51)
[2019-04-10] MEDS: METOPROLOL SUCCINATE 50 MG TAB.SR.24H PO SCH ×2 (08:33→20:36)
[2019-04-10] MEDS: QUETIAPINE FUMARATE 25 MG TABLET PO SCH ×2 (08:33→16:51)
[2019-04-10] MEDS: HEPARIN SODIUM, PORCINE 5000 UNITS/1 ML VIAL SQ SCH ×2 (08:35→21:10)
[2019-04-10] MEDS: CLOTRIMAZOLE 1% 15 GM TUBE TP SCH ×2 (08:37→16:52)
--- NOTE | 2019-04-10 08:40 | NUR ---
PAGED TO REPORT ABNORMAL NA AND GLUCOSE LEVEL , ALSO ABNORMAL CHEST X-USAMA RESULTS
--- NOTE | 2019-04-10 09:30 | NUR ---
CALLED AGAIN , NO RESPONSE YET
[2019-04-10] MEDS ORDERED: NEUTRA PHOS 1 POWD.PACKET NG ONE (10:00)
--- NOTE | 2019-04-10 11:28 | NUR ---
RECEIVED ORDER FOR CHEST X-RAY TO REPEAT
[2019-04-10 12:00] VITALS: BP 131/69
[2019-04-10] MEDS: VANCOMYCIN 1.25 GM in IV D5W 250 ML IV SCH (13:50)
[2019-04-10] MEDS ORDERED: IV D5W 1,000 ML IV PRN (15:00)
--- NOTE | 2019-04-10 15:16 | NUR ---
A NEW ORDER PER : D5W 50ML/HR , INSULIN REGULAR SLIDING SCALE AGGRESSIVE
[2019-04-10 16:00] VITALS: BP_SYST 131; BP_SYST 137; BP_DIAS 85; BP_DIAS 92
[2019-04-10] MEDS: HYDROCODONE/APAP 5/325MG 1 EACH TABLET PO PRN (17:00)
--- NOTE | 2019-04-10 18:47 | NUR ---
PT IS STABLE, CURRENTLY ON O2 VIA NC 5L ;SATURATION 97% . PATIENT WITH L WRIST RESTRAINT, ATTEMPTED TO REMOVE NG TUBE AND IV LINE. ORDER RENEWED. NO SIGN OF PAIN AT THIS TIME. NGTUBE WITH FEEDING RUNNING AT 50 ML/HR, TOLERATING WELL, WITH NO RESIDUAL. LOERA IN PLACE WITH 450 ML OF CLEAR YELLOW URINE OUT. IV TO THE L UPPER ARM #[address] FLUID RUNNING ORDERED. ALL C NEEDS ATTENDED TO. SAFETY PRECAUTIONS IN PLACE. WILL ENDORSE TO NEXT SHIFT FOR EDA.
--- NOTE | 2019-04-10 19:10 | NUR ---
rn initial notes: received report from kristin marquez. pt in bed, confused, a/o x1, on 5l oxygen via nc, continuous pulse ox at bed side, spo2 97%, pt has ngtube on right nares. iv access patent and flushing well, no s/s of iv infiltration noted. iv infusing with d5w at 50ml/hr. on tele sinus rhythm with pac's hr 71. pt received with left soft wrist restraint in placed, pt able to move and wiggle hands and arms, with good capillary refill noted, radial pulses palpable and intact, no s/s of impediment in circulation noted. has alex catheter in placed. ble offloaded on pillows. safety precautions for fall initiated, call light in reach, will continue monitoring pt.
[2019-04-10 20:00] VITALS: BP 164/46
--- NOTE | 2019-04-10 20:20 | NUR ---
rn notes: check patency of ngtube, no residual obtained, kept pt on aspiration precautions, hob 30 degree's. on seizure precautions. suction set up secured. pt uses bipap at night per rt he will monitor if pt needs it jerry, music journalist david aware.
[2019-04-10] MEDS: GLUCERNA 1.2 1,000 ML BOTTLE NG PRN (21:09)
[2019-04-10] MEDS: DONEPEZIL 5 MG TABLET PO SCH (21:09)
[2019-04-10] MEDS: SIMVASTATIN 20 MG TABLET PO SCH (21:10)
--- NOTE | 2019-04-10 21:14 | NUR ---
prn seroquel: administered prn seroquel per clinical assessment and judgment, for schizo and depression. will continue monitoring pt.
--- NOTE | 2019-04-10 21:22 | NUR ---
RT BiPAP not indicated at this time, no signs of SOB or respiratory distress noted. Pt is connected to continuous pulse ox, alarms set and audible. Charge nurse and RN notified and aware. Pt received with noticeable pressure ulcer on bridge of nose. Will continue to monitor for any changes in condition. Addendum: 04/10/19 at 2336 by NIRAJ MENARD RT Amended: Links added.
--- NOTE | 2019-04-10 22:00 | NUR ---
rn notes: pt positive isolation mrsa nares, moved pt to room 102, with all belongings sent with pt upon transfer
[2019-04-11] MEDS: BLOOD SUGAR DIAGNOSTIC 1 EACH STRIP IN SCH ×4 (00:09→17:36)
[2019-04-11] MEDS: INSULIN REGULAR, HUMAN 100 UNIT/ML 3 ML VIAL SQ PRN ×4 (00:10→17:35)
[2019-04-11 00:25] VITALS: BP 124/70
[2019-04-11 04:00] VITALS: BP 147/82
[2019-04-11] MEDS: HYDROCODONE/APAP 5/325MG 1 EACH TABLET PO PRN ×2 (04:07→11:40)
--- NOTE | 2019-04-11 04:08 | NUR ---
PRN NORCO: UTILIZED FLACC SCALE, OBTAINED RESULT OF 6, PRN NORCO ADMINISTERED VIA NGTUBE
--- NOTE | 2019-04-11 06:47 | NUR ---
RN CLOSING NOTES: PT REMAINS WITH NG-TUBE ON RIGHT NARES, CONNECTED TO NG-TUBE FEEDING GLUCERNA AT 50ML/HR. NG-TUBE REMAINS PATENT AND FLUSHING WELL. LEFT SOFT WRIST RESTRAINT REMAINS IN PLACED, RADIAL PULSES PALPABLE AND INTACT, WITH GOOD CAPILLARY REFILL NOTED, PT ABLE TO MOVE AND WIGGLE ARM AND HAND, NO S/S OF IMPEDIMENT IN CIRCULATION NOTED. IV ACCESS REMAINS PATENT AND FLUSHING WELL, INFUSING WITH IVF ORDERED. VS REMAINS STABLE, NEEDS ATTENDED. SAFETY PRECAUTIONS FOR FALL REMAINS ENGAGED, CALL LIGHT IN REACH, WILL ENDORSE TO DAY RN FOR CONTINUITY OF CARE.
--- NOTE | 2019-04-11 07:11 | NUR ---
MAINTENANCE OF WAY FOREMAN OPENING NOTES RECEIVED PT AWAKE IN BED IN NO ACUTE SIGNS OF DISTRESS. HOB ELEVATED. AWAKE, A/O X1. CONFUSED AND LOOKS COMFORTABLE WITH NO S/S OF PAIN NOTED AT THIS TIME. LEFT ARM SOFT WRIST RESTRAINS IN PLACE WITH GOOD RADIAL PULSE NOTED AND SKIN IS INTACT. ON 02 VIA N/C @ 5LPM, TOLERATING WELL WITH NO SOB NOTED. TELEMONITORING SHOWS SR WITH HR ON THE 70'S. PT WITH NGT IN PLACED AND PATENT WITH FEEDING OF GLUCERNA @ 50ML/HR IN PROGRESS AND TOLERATING WELL. ASPIRATION PRECAUTIONS MAINTAINED. IV ACCESS ON BRANDYN G #18 INTACT AND PATENT WITH IVF INFUSING WELL ORDERED, NO S/S OF INFILTRATIONS NOTED. LOERA IN PLACED AND ACTIVELY DRAINING CLEAR YELLOW URINE OUTPUT. SAFETY MEASURES IN PLACE. BED IN LOW LOCKED POSITION WITH SR UUP X3. CALL LIGHT WITHIN REACH. WILL CONTINUE TO MONITOR PT ACCORDINGLY.
[2019-04-11 07:31] LABS: BASOPHILS % (AUTO) 0.4 % (0.0-2.0); EOSINOPHILS % (AUTO) 2.5 % (0.0-6.0); HEMATOCRIT 37 % (39-51); HEMOGLOBIN 11.8 g/dL (13.5-17.5); LYMPHOCYTES # (AUTO) 1.2 /CMM (0.8-4.8); LYMPHOCYTES % (AUTO) 12.3 % (20.0-44.0); MEAN CORPUSCULAR HGB CONC 32 g/dl (31.0-36.0); MEAN CORPUSCULAR VOLUME 90 fL (80-96); MONOCYTES # (AUTO) 0.5 /CMM (0.1-1.30); MONOCYTES % (AUTO) 5.3 % (2.0-12.0); NEUTROPHILS % (AUTO) 79.5 % (43.0-81.0); PLATELET COUNT (AUTO) 126 /CMM (150-450); RED BLOOD CELL COUNT(AUTO) 4.12 MIL/uL (4.5-6.0); WHITE BLOOD COUNT (AUTO) 10.1 K/uL (4.3-11.0)
[2019-04-11 07:43] LABS: CALCIUM, SERUM 8.7 mg/dL (8.5-10.1); CREATININE 1.2 mg/dL (0.6-1.3); MAGNESIUM 2.5 mg/dL (1.8-2.4); PHOSPHORUS 2.2 mg/dL (2.5-4.9); POTASSIUM 4.3 mmol/L (3.5-5.1)
[2019-04-11 08:00] VITALS: BP 172/76
[2019-04-11] MEDS: VANCOMYCIN 1.25 GM in IV D5W 250 ML IV SCH (08:00)
[2019-04-11] MEDS: HEPARIN SODIUM, PORCINE 5000 UNITS/1 ML VIAL SQ SCH ×2 (08:34→22:03)
[2019-04-11] MEDS: LACTOBACILLUS RHAMNOSUS GG 1 EACH CAP.SPRINK PO SCH ×2 (08:35→17:10)
[2019-04-11] MEDS: METOPROLOL SUCCINATE 50 MG TAB.SR.24H PO SCH ×2 (08:35→22:02)
[2019-04-11] MEDS: DIVALPROEX SODIUM 250 MG TABLET.DR PO SCH ×3 (08:35→17:10)
[2019-04-11] MEDS: ASPIRIN EC 81 MG TABLET.DR PO SCH (08:36)
[2019-04-11] MEDS: QUETIAPINE FUMARATE 25 MG TABLET PO SCH ×2 (08:36→17:10)
[2019-04-11] MEDS: CLOTRIMAZOLE 1% 15 GM TUBE TP SCH ×2 (08:37→17:10)
--- NOTE | 2019-04-11 08:46 | NUR ---
RN NOTES RECEIVED CALL FROM LAB THAT PT HAD CRITICAL HIGH BLOOD GLUCOSE OF 361. DR GAN MADE AWARE WITH ORDER TO DISCONTINUE IVF OF D5W AND CONTINUE BLOOD SUGAR MONITORING WITH REGULAR INSULIN PRN PER SLIDING SCALE. WILL CONTINUE TO MONITOR.
[2019-04-11] MEDS ORDERED: K PHOS NEUTRAL 250 MG TABLET PO ONE (09:00)
[2019-04-11] MEDS ORDERED: MUPIROCIN OINT 2% 22 GM TUBE SCH (09:00)
[2019-04-11] MEDS: MEROPENEM 500 MG in IV NS 0.9% 100 ML IV SCH ×2 (10:00→21:59)
[2019-04-11] MEDS ORDERED: DEXTROSE 50%-WATER 50 ML DISP.SYRIN IV PRN (11:00)
--- NOTE | 2019-04-11 11:51 | NUR ---
RN NOTES PT NOTED GRIMACING AND MOANING IN PAIN, PRN NORCO 5/325MG TAB ADMINISTERED VIA NGT AT 1140. WILL CONTINUE TO MONITOR AND REASSESS PT.
[2019-04-11 12:00] VITALS: BP 153/96
[2019-04-11 16:00] VITALS: BP 139/100
--- NOTE | 2019-04-11 17:09 | NUR ---
RN NOTES PT NOTED WITH BP OF 139/100, MD GAN MADE AWARE WITH NO NEW ORDER MADE. WILL CONTINUE TO MONITOR
[2019-04-11] MEDS: GLUCERNA 1.2 1,000 ML BOTTLE NG PRN (17:28)
--- NOTE | 2019-04-11 18:38 | NUR ---
BACK TENDER CLOSING NOTES PT IN BED ASLEEP AT THIS TIME, EASILY AROUSABLE. A/O X1. NON-VERBAL AND CONFUSED. DNR STATUS MAINTAINED. PT WITH LEFT ARM SOFT WRIST RESTRAINS IN PLACE WITH GOOD RADIAL PULSE NOTED AND SKIN IS INTACT. ON 02 VIA N/C @ 5LPM, TOLERATING WELL WITH NO SOB NOTED. TELE-MONITORING SHOWS SR WITH HR ON THE 70'S. NG-TUBE IN PLACE AND PATENT WITH FEEDING OF GLUCERNA @ 50ML/HR IN PROGRESS , TOLERATING WELL. ASPIRATION PRECAUTIONS MAINTAINED. IV ACCESS ON BRANDYN G #18 INTACT , PATENT AND FLUSHES WELL. INDWELLING LOERA CATHETER IN PLACE AND ACTIVELY DRAINING CLEAR YELLOW URINE OUTPUT, LOERA CARE DONE. PT TURNED AND REPOSITIONED Q 2HRS AND PRN. KEPT CLEAN, DRY AND COMFORTABLE AT ALL TIMES. ALL NEEDS AND CARE PROVIDED WELL. SAFETY MEASURES KEPT IN PLACE. HOB ELEVATED AT ALL TIMES. BED IN LOW LOCKED POSITION WITH SR UP X3. CALL LIGHT WITHIN REACH. WILL ENDORSE TO DRAFTER SEISMOGRAPH NURSE FOR EDA..
[2019-04-11 20:00] VITALS: BP 153/73
--- NOTE | 2019-04-11 20:00 | NUR ---
CONFERENCE AND EVENT ORGANISER OPENING NOTES RECEIVED PT AWAKE IN BED IN NO ACUTE SIGNS OF DISTRESS. HOB ELEVATED. AWAKE, A/O X1. CONFUSED WITH NO S/S OF PAIN NOTED AT THIS TIME. LEFT ARM SOFT WRIST RESTRAINS IN PLACE WITH GOOD RADIAL PULSE NOTED . ON 02 VIA N/C @ 5LPM, TOLERATING WELL WITH NO SOB NOTED. TELEMONITORING SHOWS SR WITH HR ON THE 80'S. PT WITH NGT IN PLACED AND PATENT WITH FEEDING OF GLUCERNA @ 50ML/HR IN PROGRESS AND TOLERATING WELL. ASPIRATION PRECAUTIONS MAINTAINED. IV ACCESS ON BRANDYN G #18 INTACT AND PATENT WITH IVF INFUSING WELL ORDERED, NO S/S OF INFILTRATIONS NOTED. LOERA IS IN PLACE DRAINING CLEAR YELLOW URINE . SAFETY MEASURES IN PLACE. BED IN LOW LOCKED POSITION WITH SR UUP X3. HOB ELEVATED, CALL LIGHT WITHIN REACH. WILL CONTINUE TO MONITOR PT ACCORDINGLY.
[2019-04-11] MEDS: SIMVASTATIN 20 MG TABLET PO SCH (21:59)
[2019-04-11] MEDS: DONEPEZIL 5 MG TABLET PO SCH (22:00)
[2019-04-12] VITALS: BP 158/99
[2019-04-12] MEDS: BLOOD SUGAR DIAGNOSTIC 1 EACH STRIP IN SCH ×5 (01:14→23:52)
[2019-04-12] MEDS: INSULIN REGULAR, HUMAN 100 UNIT/ML 3 ML VIAL SQ PRN ×5 (01:16→23:56)
[2019-04-12] MEDS: VANCOMYCIN 1.25 GM in IV D5W 250 ML IV SCH ×2 (02:52→20:53)
[2019-04-12 04:00] VITALS: BP 160/89
[2019-04-12 06:27] LABS: BASOPHILS % (AUTO) 0.4 % (0.0-2.0); EOSINOPHILS % (AUTO) 2.6 % (0.0-6.0); HEMATOCRIT 37 % (39-51); HEMOGLOBIN 11.8 g/dL (13.5-17.5); LYMPHOCYTES % (AUTO) 10.2 % (20.0-44.0); MEAN CORPUSCULAR HGB CONC 32 g/dl (31.0-36.0); MEAN CORPUSCULAR VOLUME 89 fL (80-96); MONOCYTES # (AUTO) 0.6 /CMM (0.1-1.30); MONOCYTES % (AUTO) 6.6 % (2.0-12.0); NEUTROPHILS # (AUTO) 7.5 /CMM (1.8-8.9); NEUTROPHILS % (AUTO) 80.2 % (43.0-81.0); PLATELET COUNT (AUTO) 151 /CMM (150-450); RED BLOOD CELL COUNT(AUTO) 4.14 MIL/uL (4.5-6.0); WHITE BLOOD COUNT (AUTO) 9.4 K/uL (4.3-11.0)
[2019-04-12 06:35] LABS: CALCIUM, SERUM 8.8 mg/dL (8.5-10.1); POTASSIUM 4.4 mmol/L (3.5-5.1)
[2019-04-12 08:00] VITALS: BP 154/85
[2019-04-12] MEDS: MEROPENEM 500 MG in IV NS 0.9% 100 ML IV SCH ×2 (08:15→22:12)
[2019-04-12] MEDS: LACTOBACILLUS RHAMNOSUS GG 1 EACH CAP.SPRINK PO SCH ×2 (08:16→17:01)
[2019-04-12] MEDS: ASPIRIN EC 81 MG TABLET.DR PO SCH (08:16)
[2019-04-12] MEDS: DIVALPROEX SODIUM 250 MG TABLET.DR PO SCH ×3 (08:16→17:01)
[2019-04-12] MEDS: QUETIAPINE FUMARATE 25 MG TABLET PO SCH ×2 (08:16→17:01)
[2019-04-12] MEDS: METOPROLOL SUCCINATE 50 MG TAB.SR.24H PO SCH ×2 (08:17→21:14)
[2019-04-12] MEDS: HEPARIN SODIUM, PORCINE 5000 UNITS/1 ML VIAL SQ SCH ×2 (08:19→21:15)
[2019-04-12] MEDS: CLOTRIMAZOLE 1% 15 GM TUBE TP SCH ×2 (08:22→17:01)
[2019-04-12 12:00] VITALS: BP_SYST 146; BP_SYST 149; BP_DIAS 83
[2019-04-12] MEDS: HYDROCODONE/APAP 5/325MG 1 EACH TABLET PO PRN ×3 (12:52→21:16)
[2019-04-12] MEDS: GLUCERNA 1.2 1,000 ML BOTTLE NG PRN (14:49)
[2019-04-12 16:00] VITALS: BP 163/80
--- NOTE | 2019-04-12 19:27 | NUR ---
DEBURRING TECHNICIAN CLOSING PATIENT UNABLE TO ANSWER QUESTIONS OR FOLLOW DIRECTIONS. AWAKE, AROUSES TO NAME. TITRATED TO ON L O2 VIA NC, NO SOB NOTED. PULSE OX ATTACHED, ALARM AUDIBLE. SPO2 93-96%. TELE MONITOR ATTACHED, SINUS RHYTHM 70s. WORKED WITH PT THIS SHIFT. WOUND CARE COMPLETED. RESTRAINT ON L ARM, PULLING AT LINES, SEE DOCUMENTATION/ NO S/S IMPAIRED CIRCULATION. HOB KEPT UP AT ALL TIMES. NGT PLACE VERIFIED VIA AUSCALTATION + ASPIRATION, FLUSHED ORDERED. VIDEO SWALLOW EVAL RECOMMENDED BY MICHAELA PRECIADO DNP APPROVED ORDER. NOT DONE TODAY "DUE TO PATIENT LETHARGY" PER . NO RESIDUAL FROM GTF NOTED, RUNNING @75mL/HR. IV SITE INTACT, PATENT, NO S/S INFILTRATION. NORCO GIVEN X1. NOTED TO MEGHAN OCCASIONALLY. DAUGHTER UPDATED. ENDORSED TO MYLENE SILVA Addendum: 04/12/19 at 1933 by KAI JACKSON RN LOERA CATHETER DRAINING YELLOW URINE TO GRAVITY.
[2019-04-12 20:00] VITALS: BP 163/96
[2019-04-12] MEDS: DONEPEZIL 5 MG TABLET PO SCH (21:13)
[2019-04-12] MEDS: SIMVASTATIN 20 MG TABLET PO SCH (21:13)
[2019-04-13] VITALS: BP 148/88
[2019-04-13 04:00] VITALS: BP 142/72
[2019-04-13] MEDS: BLOOD SUGAR DIAGNOSTIC 1 EACH STRIP IN SCH ×3 (06:11→17:55)
[2019-04-13] MEDS: INSULIN REGULAR, HUMAN 100 UNIT/ML 3 ML VIAL SQ PRN ×3 (06:15→21:50)
[2019-04-13] MEDS: GLUCERNA 1.2 1,000 ML BOTTLE NG PRN (06:16)
[2019-04-13 06:21] LABS: CALCIUM, SERUM 8.7 mg/dL (8.5-10.1); CREATININE 0.9 mg/dL (0.6-1.3); POTASSIUM 5.1 mmol/L (3.5-5.1)
[2019-04-13 08:00] VITALS: BP 117/75
[2019-04-13] MEDS: MEROPENEM 500 MG in IV NS 0.9% 100 ML IV SCH ×2 (09:17→20:30)
[2019-04-13] MEDS: DIVALPROEX SODIUM 250 MG TABLET.DR PO SCH ×3 (09:20→17:00)
[2019-04-13] MEDS: METOPROLOL SUCCINATE 50 MG TAB.SR.24H PO SCH ×2 (09:21→20:34)
[2019-04-13] MEDS: LACTOBACILLUS RHAMNOSUS GG 1 EACH CAP.SPRINK PO SCH ×2 (09:21→17:00)
[2019-04-13] MEDS: ASPIRIN EC 81 MG TABLET.DR PO SCH (09:21)
[2019-04-13] MEDS: QUETIAPINE FUMARATE 25 MG TABLET PO SCH ×2 (09:22→17:00)
[2019-04-13] MEDS: CLOTRIMAZOLE 1% 15 GM TUBE TP SCH ×2 (09:23→17:55)
--- NOTE | 2019-04-13 14:45 | NUR ---
rn notes picked up for video swallow.
--- NOTE | 2019-04-13 14:55 | NUR ---
rn notes engineering technical writer reported that ng tube was puled out.
--- NOTE | 2019-04-13 15:05 | NUR ---
rn notes returned from video swallow. per dario.speech therapist, she recommends PEG placement
--- NOTE | 2019-04-13 15:12 | NUR ---
rn notes no vanco trough today. verified with juliet rand. per isai rand to give
[2019-04-13] MEDS: VANCOMYCIN 1.25 GM in IV D5W 250 ML IV SCH (15:14)
[2019-04-13 16:00] VITALS: BP 143/74
--- NOTE | 2019-04-13 17:00 | NUR ---
off restraints, patient is calm, not pulling lines and tubing. will moniotr accordingly.
--- NOTE | 2019-04-13 17:30 | NUR ---
unable to reinsert NG tube. patient is resisting and wont stay still.
--- NOTE | 2019-04-13 18:22 | NUR ---
rn notes Attempted to reinsert NG tube again but unable due to patient is resisting and wont stay still. Notified Dr Jackson. per MD, "just let him rest for now and try to reinsert again."
--- NOTE | 2019-04-13 18:50 | NUR ---
rn notes NG TUBE reinserted, auscultated checked placement, taped securely. Stat ABD XRAY ordered for NG tube placement.
--- NOTE | 2019-04-13 19:20 | NUR ---
RN CLOSING NOTES PATIENT IN STABLE CONDITION. ALL NEEDS ATTENDED AND PROVIDED. ALL DUE MEDS GIVEN ORDERED. TURNED AND REPOSITIONED PATIENT EVERY 2HRS NEEDED. WOUND CARE RENDERED. KEPT PATIENT SAFE AND COMFORTABLE. BED IN LOW/LOCKED POSITION, SIDERAILS UPX2, CALL LIGHT IN REACH. ENDORSED TO NIGHT RN FOR EDA.
[2019-04-13 20:00] VITALS: BP_SYST 143; BP_SYST 153; BP_DIAS 85; BP_DIAS 97
[2019-04-13] MEDS: SIMVASTATIN 20 MG TABLET PO SCH (21:05)
[2019-04-13] MEDS: DONEPEZIL 5 MG TABLET PO SCH (21:06)
--- NOTE | 2019-04-14 | NUR ---
RN NOTES RECEIVED REPORT FROM PREVIOUS RN FOR EDA. PATIENT RESTING COMFORTABLY IN BED W/ LEFT SOFT WRIST RESTRAINT IN PLACE TO PREVENT FROM PULLING OF IV LINE & NG-TUBE. NO S/S OF PAIN OR DISCOMFORT @ THIS TIME.
[2019-04-14] MEDS: BLOOD SUGAR DIAGNOSTIC 1 EACH STRIP IN SCH ×5 (00:22→22:27)
[2019-04-14] MEDS: GLUCERNA 1.2 1,000 ML BOTTLE NG PRN (03:30)
--- NOTE | 2019-04-14 03:47 | NUR ---
RT PT IN STABLE CONDITION. NO SOB OR RESP DISTRESS NOTED. NO INDICATION FOR BIPAP. WILL CONTINUE TO MONITOR.
[2019-04-14 04:00] VITALS: BP 133/69
[2019-04-14] MEDS: INSULIN REGULAR, HUMAN 100 UNIT/ML 3 ML VIAL SQ PRN ×3 (06:25→19:00)
[2019-04-14 07:32] LABS: BASOPHILS % (AUTO) 0.3 % (0.0-2.0); EOSINOPHILS % (AUTO) 1.5 % (0.0-6.0); HEMATOCRIT 34 % (39-51); HEMOGLOBIN 11.3 g/dL (13.5-17.5); LYMPHOCYTES # (AUTO) 1.1 /CMM (0.8-4.8); LYMPHOCYTES % (AUTO) 11.5 % (20.0-44.0); MEAN CORPUSCULAR HGB CONC 33 g/dl (31.0-36.0); MEAN CORPUSCULAR VOLUME 89 fL (80-96); MONOCYTES # (AUTO) 0.6 /CMM (0.1-1.30); MONOCYTES % (AUTO) 5.6 % (2.0-12.0); NEUTROPHILS # (AUTO) 8.1 /CMM (1.8-8.9); NEUTROPHILS % (AUTO) 81.1 % (43.0-81.0); PLATELET COUNT (AUTO) 174 /CMM (150-450); RED BLOOD CELL COUNT(AUTO) 3.86 MIL/uL (4.5-6.0)
[2019-04-14 07:43] LABS: CALCIUM, SERUM 8.7 mg/dL (8.5-10.1); CREATININE 0.9 mg/dL (0.6-1.3); POTASSIUM 4.8 mmol/L (3.5-5.1)
[2019-04-14 08:00] VITALS: BP 142/67
[2019-04-14] MEDS: ASPIRIN EC 81 MG TABLET.DR PO SCH (08:22)
[2019-04-14] MEDS: LACTOBACILLUS RHAMNOSUS GG 1 EACH CAP.SPRINK PO SCH ×2 (08:23→16:33)
[2019-04-14] MEDS: QUETIAPINE FUMARATE 25 MG TABLET PO SCH ×2 (08:24→16:33)
--- NOTE | 2019-04-14 09:00 | NUR ---
MS RN NOTES DIVALPROEX SODIUM 250 MG AND METOPROLOL SUCCINATE 50 MG NOT ADMINISTERED. BOTH MEDICATION WERE NOT CRUSHABLE. NOTIFIED DR POWELL AND PHARMACY FOR ALTERNATE ROUTE.
[2019-04-14] MEDS: MEROPENEM 500 MG in IV NS 0.9% 100 ML IV SCH ×2 (09:15→22:26)
[2019-04-14] MEDS: CLOTRIMAZOLE 1% 15 GM TUBE TP SCH ×2 (09:16→16:34)
[2019-04-14] MEDS ORDERED: ACETAMINOPHEN 650 MG/20.3 ML UDC PO PRN (11:00)
[2019-04-14 12:00] VITALS: BP 142/67
--- NOTE | 2019-04-14 12:30 | NUR ---
MS RICARDO NOTES PT WAS ABLE TO CONSUME THE PUREED OF RICE.
--- NOTE | 2019-04-14 12:41 | NUR ---
MS RN NOTES PT BLOOD GLUCOSE LEVEL 157 AND 2 UNIT OF INSULIN FOR COVERAGE NOT GIVE. PT REMOVED THE NG TUBE AT 1030 AND GLUCERNA IS STOPPED. PT ON CALORIE COUNT . TRIED TO FEED THE LUNCH AND PT IS ABLE TO SWALLOW WITH DIFFICULTY. WILL TRY TO MONITOR PT.
[2019-04-14] MEDS: VALPROIC ACID 250 MG/5 ML UDC PO SCH ×2 (13:14→16:33)
[2019-04-14] MEDS: GLUCERNA SHAKE 237 ML CAN PO SCH ×2 (15:37→18:58)
[2019-04-14 16:00] VITALS: BP 141/85
--- NOTE | 2019-04-14 19:00 | NUR ---
MS RN NOTES PATIENT FOOD CONSUMING IMPROVING. HE WAS ABLE TO CONSUME TEASPOONS OF GLUCERNA , 1 BOWL OF BEEF MACARONI, 5 TEASPOON OF VEGETABLE SOUP. INSULIN ADMINISTRATED AFTER PT WAS ABLE TO EAT THE DINNER.
--- NOTE | 2019-04-14 19:24 | NUR ---
MS RN NOTES PATIENT IN BED RESTING, NO SIGNS OF DISCOMFORT AND SOB NOTED AT THIS TIME. APPLIED ICE PACK TO LEFT UPPER ARM FOR PHLEBITIS AFTER IV REMOVAL. IV SITE PATENT @3ML/HR TKO. ALL NEEDS ATTENDED. BED LOCKED IN THE LOWEST POSITION , CALL LIGHT WITHIN REACH. ENDORSED TO ANNUAL GIVING OFFICER NURSE FOR EDA.
[2019-04-14] MEDS ORDERED: DEXTROSE 50%-WATER 50 ML DISP.SYRIN IV PRN (20:00)
[2019-04-14] MEDS ORDERED: INSULIN REGULAR, HUMAN 100 UNIT/ML 3 ML VIAL SQ PRN (20:00)
[2019-04-14 20:17] VITALS: BP 101/57
--- NOTE | 2019-04-14 20:21 | NUR ---
RN MS INITIAL NOTE RECEIVED PATIENT AO, NC@2L, WELL TOLERATED ,RESTING COMFORTABLY IN BED W/ LEFT SOFT WRIST RESTRAINT IN PLACE TO PREVENT FROM PULLING OF IV LINE , F/C IN PLACE, WELL SECURED. NO S/S OF PAIN OR DISCOMFORT @ THIS TIME, CLEAN AND DRY, WELL REPOSITIONED, WILL CONT' TO MONITOR.
[2019-04-14] MEDS ORDERED: METOPROLOL TARTRATE 50 MG TABLET PO SCH (21:00)
[2019-04-14] MEDS: METOPROLOL TARTRATE 50 MG TABLET PO SCH (21:00)
[2019-04-14] MEDS: DONEPEZIL 5 MG TABLET PO SCH (22:27)
[2019-04-14] MEDS: SIMVASTATIN 20 MG TABLET PO SCH (22:27)
[2019-04-15 04:31] VITALS: BP 123/50
[2019-04-15 06:37] LABS: BASOPHILS # (AUTO) 0.1 /CMM (0.0-0.2); BASOPHILS % (AUTO) 0.7 % (0.0-2.0); EOSINOPHILS % (AUTO) 1.7 % (0.0-6.0); HEMATOCRIT 37 % (39-51); HEMOGLOBIN 11.9 g/dL (13.5-17.5); LYMPHOCYTES # (AUTO) 1.5 /CMM (0.8-4.8); LYMPHOCYTES % (AUTO) 13.9 % (20.0-44.0); MEAN CORPUSCULAR HGB CONC 33 g/dl (31.0-36.0); MEAN CORPUSCULAR VOLUME 89 fL (80-96); MONOCYTES # (AUTO) 0.7 /CMM (0.1-1.30); MONOCYTES % (AUTO) 6.2 % (2.0-12.0); NEUTROPHILS # (AUTO) 8.6 /CMM (1.8-8.9); NEUTROPHILS % (AUTO) 77.5 % (43.0-81.0); PLATELET COUNT (AUTO) 180 /CMM (150-450); RED BLOOD CELL COUNT(AUTO) 4.13 MIL/uL (4.5-6.0); WHITE BLOOD COUNT (AUTO) 11.1 K/uL (4.3-11.0)
--- NOTE | 2019-04-15 06:57 | NUR ---
RN MS CLOSING NOTE PATIENT AO, NC@2L, WELL TOLERATED ,RESTING COMFORTABLY IN BED W/ LEFT SOFT WRIST RESTRAINT IN PLACE TO PREVENT FROM PULLING OF IV LINE , F/C IN PLACE, WELL SECURED. NO S/S OF PAIN OR DISCOMFORT @ THIS TIME, CLEAN AND DRY, WELL REPOSITIONED, WILL CONT' TO MONITOR.
[2019-04-15 07:03] LABS: CALCIUM, SERUM 9.1 mg/dL (8.5-10.1); CREATININE 0.9 mg/dL (0.6-1.3); POTASSIUM 4.7 mmol/L (3.5-5.1)
[2019-04-15 08:00] VITALS: BP_SYST 165; BP_DIAS 54; BP_DIAS 73
[2019-04-15] MEDS: BLOOD SUGAR DIAGNOSTIC 1 EACH STRIP IN SCH ×2 (08:04→13:03)
[2019-04-15] MEDS: INSULIN REGULAR, HUMAN 100 UNIT/ML 3 ML VIAL SQ PRN ×2 (08:08→13:06)
[2019-04-15] MEDS: GLUCERNA SHAKE 237 ML CAN PO SCH ×2 (08:22→13:04)
[2019-04-15] MEDS: QUETIAPINE FUMARATE 25 MG TABLET PO SCH (08:48)
[2019-04-15] MEDS: VALPROIC ACID 250 MG/5 ML UDC PO SCH ×2 (08:48→13:04)
[2019-04-15 08:49] VITALS: BP 165/73
[2019-04-15] MEDS: METOPROLOL TARTRATE 50 MG TABLET PO SCH (08:49)
[2019-04-15] MEDS: MEROPENEM 500 MG in IV NS 0.9% 100 ML IV SCH (08:49)
[2019-04-15] MEDS: LACTOBACILLUS RHAMNOSUS GG 1 EACH CAP.SPRINK PO SCH (08:49)
[2019-04-15] MEDS: CLOTRIMAZOLE 1% 15 GM TUBE TP SCH (08:51)
[2019-04-15] MEDS ORDERED: ASPIRIN 81 MG TAB.CHEW PO SCH (09:00)
[2019-04-15] MEDS ORDERED: ASPI-1169 PO (09:53)
[2019-04-15] MEDS ORDERED: QUET25TA PO (09:53)
[2019-04-15] MEDS ORDERED: VALP250S22 PO (09:53)
[2019-04-15] MEDS ORDERED: MERO500V3 IV (09:53)
[2019-04-15] MEDS ORDERED: LACT1CAP72 PO (09:53)
--- NOTE | 2019-04-15 15:45 | NUR ---
RN DC NOTE PATIENT REMAINS AWAKE, UNABLE TO FOLLOW COMMANDS OR VERBALIZE RESPONSES. 2L O2 VIA NC, TOLERATING WELL, NO SOB NOTED. LOERA CATHETER REMOVED PER DR. ATKINSON. THICKENED LIQUID + PUREE DIET ENDORSED TO RN AT [facility] L FA 22G IV C/D/I, LEFT IN DUE TO PATIENT ORDER OF IV ABX. PO INTAKE GOOD TODAY. 75% BREAKFAST, Addendum: 04/15/19 at 1556 by KAI JACKSON RN 75% LUNCH. WOUND PICTURES TAKEN, BELONGINGS ACCOUNTED FOR. SHIRA SENT WITH emergency department technician. DAUGHTER NOTIFIED OF TRANSFER.
== END 2019-04-15 15:45 | DRG 871 ==
LOC: ER 02:44 → TELE1 05:23 → TELE-TD 12:37 → MEDSG1 04-07 09:51 → TELE1 04-10 15:36 → MEDSG1 04-13 10:57
PROVIDERS: ADMIT Nurse Practitioner Acute Care; ATTEND Student in an Organized Health Care Education/Training Program
PROC: 5A09457 Assistance with Respiratory Ventilation, 24-96 Consecutive Hours, Continuous Positive Airway Pressure (ICD-10-PCS; principal; 2019-04-06)
DX: A41.9 Sepsis, unspecified organism (principal); I21.A1 Myocardial infarction type 2; J96.01 Acute respiratory failure with hypoxia; N17.0 Acute kidney failure with tubular necrosis; G93.41 Metabolic encephalopathy; J15.6 Pneumonia due to other Gram-negative bacteria; N39.0 Urinary tract infection, site not specified; I69.351 Hemiplegia and hemiparesis following cerebral infarction affecting right dominant side; E87.0 Hyperosmolality and hypernatremia; E87.2 Acidosis; J90 Pleural effusion, not elsewhere classified; J98.11 Atelectasis; R65.20 Severe sepsis without septic shock; G40.909 Epilepsy, unspecified, not intractable, without status epilepticus; Z87.440 Personal history of urinary (tract) infections; G30.9 Alzheimer's disease, unspecified; F02.80 Dementia in other diseases classified elsewhere, unspecified severity, without behavioral disturbance, psychotic disturbance, mood disturbance, and anxiety; E86.0 Dehydration; E11.22 Type 2 diabetes mellitus with diabetic chronic kidney disease; I12.9 Hypertensive chronic kidney disease with stage 1 through stage 4 chronic kidney disease, or unspecified chronic kidney disease; N18.9 Chronic kidney disease, unspecified; E78.5 Hyperlipidemia, unspecified; B96.89 Other specified bacterial agents as the cause of diseases classified elsewhere; D72.829 Elevated white blood cell count, unspecified; E86.9 Volume depletion, unspecified; F20.9 Schizophrenia, unspecified; Z66 Do not resuscitate; E21.3 Hyperparathyroidism, unspecified; D69.6 Thrombocytopenia, unspecified; E11.65 Type 2 diabetes mellitus with hyperglycemia; E87.6 Hypokalemia; I49.3 Ventricular premature depolarization; R13.10 Dysphagia, unspecified; Z87.01 Personal history of pneumonia (recurrent)
CPT/HCPCS: 31720; 36415; 36600; 71045-TC; 74018; 74230-TC; 76770-TC; 80048-TC; 80053-TC; 80061-TC; 80076-TC; 80164-TC; 80202-TC; 81000-TC; 82550-TC; 82570-TC; 82803-TC; 82962-TC; 83540-TC; 83605-TC; 83735-TC; 83970; 84100-TC; 84155; 84155-TC; 84165; 84300-TC; 84443-TC; 84484-TC; 85025-TC; 85730-TC; 87040-TC; 87081-TC; 87086-TC; 92526; 92611-TC; 93307-TC; 94760-TC; 94762-TC; 94799-TC; 97530-TC; 99082-TC; A4216; G0378; J0692; J1644; J1815; J2185; J3370; J3490; J7030; J7050; J7060; J7070

== ENCOUNTER 2019-04-23 10:40 | Inpatient (IN) | payer MEDICARE, MEDICAID ==
[~2019-04-23] VITALS: Ht 172.7 cm; Wt 68.0 kg
[~2019-04-23 10:40] MED LIST changes: +ASPI-1169 PO; +LACT1CAP72 PO; +MERO500V3 IV; +SIMV-46 PO; -SIMV20TA6 PO; +VALP250S22 PO
--- NOTE | 2019-04-23 11:00 | NUR ---
PT MARY, SENT FROM SNF C/O POOR PO INTAKE X3 DAYS, WBC 13.0 AND NA 160 BG389 @ 0630AM. PT AWAKE AND CONFUSED, BREATHING EVEN AND UNLABORED ON ROOM AIR W/ NO ACUTE DISTRESS NOTED. PT CONNECTED TO THE MONITOR.
[2019-04-23] MEDS ORDERED: IV NS 0.9% 1,000 ML BAG IV ONE ×2 (11:30→13:00)
[2019-04-23] MEDS ORDERED: QUET25TA PO (11:34)
[2019-04-23] MEDS ORDERED: ACET-868 PO (11:34)
[2019-04-23] MEDS ORDERED: INSU100I4 SQ (11:34)
[2019-04-23] MEDS ORDERED: ASPI-605 PO (11:34)
[2019-04-23] MEDS ORDERED: DOCU-141 PO (11:34)
[2019-04-23] MEDS ORDERED: ACET-73 PO (11:34)
[2019-04-23 11:51] LABS: BASOPHILS # (AUTO) 0.2 /CMM (0.0-0.2); BASOPHILS % (AUTO) 0.8 % (0.0-2.0); EOSINOPHILS % (AUTO) 3.5 % (0.0-6.0); HEMATOCRIT 42 % (39-51); LYMPHOCYTES % (AUTO) 10.5 % (20.0-44.0); MEAN CORPUSCULAR HGB CONC 31 g/dl (31.0-36.0); MEAN CORPUSCULAR VOLUME 93 fL (80-96); MONOCYTES # (AUTO) 0.7 /CMM (0.1-1.30); MONOCYTES % (AUTO) 3.8 % (2.0-12.0); NEUTROPHILS # (AUTO) 15.4 /CMM (1.8-8.9); NEUTROPHILS % (AUTO) 81.4 % (43.0-81.0); PLATELET COUNT (AUTO) 330 /CMM (150-450); RED BLOOD CELL COUNT(AUTO) 4.51 MIL/uL (4.5-6.0); WHITE BLOOD COUNT (AUTO) 18.9 K/uL (4.3-11.0)
--- NOTE | 2019-04-23 12:00 | NUR ---
PT IS RESTING. EASILY AROUSED. KEPT COMFORTABLE
[2019-04-23 12:03] LABS: ALANINE AMINOTRANSFERASE 12 U/L (12-78); ALBUMIN 2.5 g/dL (3.4-5.0); ALKALINE PHOSPHATASE 87 U/L (46-116); ASPARTATE AMINOTRANSFERASE 14 U/L (15-37); BILIRUBIN,DIRECT 0.1 mg/dL (0.0-0.2); BILIRUBIN,TOTAL 0.4 mg/dL (0.2-1.0); CALCIUM, SERUM 9.9 mg/dL (8.5-10.1); CARBON DIOXIDE 30 mmol/L (21-32); CREATININE 1.6 mg/dL (0.6-1.3); GLUCOSE 153 mg/dL (74-106); MAGNESIUM 2.6 mg/dL (1.8-2.4); PHOSPHORUS 2.2 mg/dL (2.5-4.9); POTASSIUM 3.8 mmol/L (3.5-5.1); TOTAL PROTEIN, SERUM 8.2 g/dL (6.4-8.2); UREA NITROGEN, BLOOD 62 mg/dL (7-18)
[2019-04-23 12:05] LABS: CHLORIDE 126 mmol/L (98-107); SODIUM SERUM 166 mmol/L (136-145)
[2019-04-23 12:05] LABS: BILIRUBIN,URINE SMALL (NEGATIVE); BLOOD, URINE Moderate Ery/uL (NEGATIVE); KETONES,URINE Negative (NEGATIVE); LEUKOCYTE ESTERASE ,URINE Small (NEGATIVE); NITRITE, URINE Negative (NEGATIVE); PROTEIN,URINE 100 mg/dl (NEGATIVE); UGLUCOSE Negative (NEGATIVE); UROBILINOGEN,URINE 0.2 EU/dL (0.2)
[2019-04-23 12:06] LABS: APPEARANCE,URINE Cloudy (CLEAR); COLOR,URINE Dark Yellow (YELLOW)
[2019-04-23 12:10] LABS: WBC,URINE TOO NUMEROUS TO COUN /HPF (0-3)
[2019-04-23 12:11] LABS: BACTERIA,URINE Moderate /HPF (None Seen); SQUAMOUS EPITHELIAL CELL,UR Few /HPF (None Seen); YEAST,URINE Many /HPF (None Seen)
--- NOTE | 2019-04-23 12:39 | NUR ---
[facility] PAGED. RECIEVED ROOM [id number]
--- NOTE | 2019-04-23 12:59 | NUR ---
CALLED TO GIVE REPORT. RN IS NOT AVAILABLE.
[2019-04-23] MEDS ORDERED: CEFTRIAXONE 1GM BAG (ER ONLY) 1 GM/50 ML PIGGYBACK IV ONE (13:00)
[2019-04-23] MEDS ORDERED: CEFTRIAXONE 1GM BAG (ER ONLY) 50 ML IV ONE (13:14)
--- NOTE | 2019-04-23 13:14 | NUR ---
REPORT GIVEN TO PACO SILVA
--- NOTE | 2019-04-23 14:10 | NUR ---
RN MS NOTES RECEIVED PT FROM E.R. STAFF VIA STEPHEN, PT IS AWAKE, ALERT TO SELF, WITH CONFUSION, ASSISTED TO BED, MADE COMFORTABLE, CALL LIGHT WITHIN REACH, AWAITING ADMITTING ORDERS FROM MD.
[2019-04-23] MEDS ORDERED: FEE PK DOSING 1 MIN EA MC ONE (15:26)
[2019-04-23] MEDS ORDERED: DEXTROSE 50%-WATER 50 ML DISP.SYRIN IV PRN (15:30)
[2019-04-23] MEDS ORDERED: ACETAMINOPHEN 325 MG TABLET PO PRN (15:30)
[2019-04-23] MEDS ORDERED: ONDANSETRON HCL/PF 4 MG/2 ML VIAL IVP PRN (15:30)
[2019-04-23 15:39] VITALS: BP 123/66
[2019-04-23 16:00] VITALS: BP 123/66
[2019-04-23] MEDS ORDERED: POTASSIUM PHOSPHATE MM 7.5 MMOL in IV D5W 100 ML IV SCH (16:00)
[2019-04-23] MEDS: IV NS 0.9% 1,000 ML IV SCH (16:07)
--- NOTE | 2019-04-23 16:10 | NUR ---
RN MS NOTES PT PULLING OUT LINES AND LOERA, UNABLE TO FOLLOW DIRECTIONS AND CUES, KEPT PT COMFORTABLE AND DRY, REPOSITIONED FOR COMFORT, MD INFORMED, ORDER OBTAINED FOR MITTENS, NOTED AND CARRIED OUT.
[2019-04-23] MEDS: VANCOMYCIN 500 MG in IV D5W 100 ML IV SCH (16:36)
[2019-04-23 16:46] LABS: CREATININE, URINE 191.3 MG/DL (30.0-125.0); URINE TOTAL PROTEIN 74.3 mg/dL (0-11.9)
[2019-04-23] MEDS: CALCIUM CARB 600MG /VIT D 1 EACH TABLET PO SCH (17:00)
[2019-04-23] MEDS: VALPROIC ACID 250 MG/5 ML UDC PO SCH (17:00)
[2019-04-23] MEDS: QUETIAPINE FUMARATE 25 MG TABLET PO SCH (17:00)
[2019-04-23] MEDS ORDERED: METFORMIN 850 MG TABLET PO SCH (17:00)
[2019-04-23] MEDS: DOCUSATE SODIUM 100 MG CAPSULE PO SCH (17:00)
[2019-04-23] MEDS: BLOOD SUGAR DIAGNOSTIC 1 EACH STRIP IN SCH ×2 (17:56→22:30)
[2019-04-23] MEDS: PIPERACILLIN /TAZOBACTAM 2.25 G in IV D5W 50 ML IV SCH ×2 (18:18→22:55)
[2019-04-23] MEDS: INSULIN REGULAR, HUMAN 100 UNIT/ML 3 ML VIAL SQ PRN ×2 (18:19→22:53)
--- NOTE | 2019-04-23 18:31 | NUR ---
RN MS NOTES PT IN BED, RESTING, RESPONSIVE WHEN NAME IS CALLED, NOT IN DISTRESS, NO SIGN OF PAIN, IV FLUIDS INFUSING WELL, PM CARE PROVIDED, F/C DRAINING WELL WITH CLEAR, YELLOW URINE, TURNED AND REPOSITIONED FOR COMFORT, ALL NEEDS ATTENDED.
--- NOTE | 2019-04-23 19:45 | NUR ---
RN MS NOTES RECEIVED PATIENT IN BED, RESTING, RESPONSIVE WHEN NAME IS CALLED, NOT IN DISTRESS, NO SIGN OF PAIN, IV ACCESS INTACT AND PATENT FLUIDS INFUSING WELL, LOERA CATHETER DRAINING WELL WITH CLEAR, YELLOW URINE, TURNED AND REPOSITIONED FOR COMFORT, CHECKED FOR ADEQUATE CIRCULATION, SAFETY MEASURES IN PLACED, ASPIRATION PRECAUTION EMPHASIZED, ALL NEEDS ATTENDED. WILL CONTINUE TO MONITOR ACCORDINGLY.
[2019-04-23 20:00] VITALS: BP 133/76
[2019-04-23] MEDS: FLUCONAZOLE IN NS 100 MG in PREMIX 1 EA IV SCH ×2 (21:17)
[2019-04-24] MEDS: IV NS 0.9% 1,000 ML IV SCH (02:35)
[2019-04-24] MEDS: VANCOMYCIN 500 MG in IV D5W 100 ML IV SCH (03:45)
[2019-04-24] MEDS: PIPERACILLIN /TAZOBACTAM 2.25 G in IV D5W 50 ML IV SCH ×4 (05:17→22:02)
[2019-04-24 06:32] LABS: BASOPHILS % (AUTO) 0.6 % (0.0-2.0); HEMATOCRIT 34 % (39-51); HEMOGLOBIN 10.9 g/dL (13.5-17.5); LYMPHOCYTES % (AUTO) 12.6 % (20.0-44.0); MEAN CORPUSCULAR HGB CONC 32 g/dl (31.0-36.0); MEAN CORPUSCULAR VOLUME 92 fL (80-96); MONOCYTES % (AUTO) 4.2 % (2.0-12.0); NEUTROPHILS # (AUTO) 9.1 /CMM (1.8-8.9); NEUTROPHILS % (AUTO) 79.6 % (43.0-81.0); PLATELET COUNT (AUTO) 207 /CMM (150-450); RED BLOOD CELL COUNT(AUTO) 3.76 MIL/uL (4.5-6.0); WHITE BLOOD COUNT (AUTO) 11.4 K/uL (4.3-11.0)
[2019-04-24 06:33] LABS: BASOPHILS # (AUTO) 0.1 /CMM (0.0-0.2); LYMPHOCYTES # (AUTO) 1.4 /CMM (0.8-4.8); MONOCYTES # (AUTO) 0.5 /CMM (0.1-1.30)
[2019-04-24 06:40] LABS: ALANINE AMINOTRANSFERASE 11 U/L (12-78); ALKALINE PHOSPHATASE 69 U/L (46-116); ASPARTATE AMINOTRANSFERASE 10 U/L (15-37); BILIRUBIN,TOTAL 0.5 mg/dL (0.2-1.0); CALCIUM, SERUM 8.3 mg/dL (8.5-10.1); CARBON DIOXIDE 27 mmol/L (21-32); CREATININE 1.4 mg/dL (0.6-1.3); GLUCOSE 258 mg/dL (74-106); MAGNESIUM 2.1 mg/dL (1.8-2.4); PHOSPHORUS 2.9 mg/dL (2.5-4.9); POTASSIUM 3.8 mmol/L (3.5-5.1); TOTAL PROTEIN, SERUM 6.5 g/dL (6.4-8.2); UREA NITROGEN, BLOOD 52 mg/dL (7-18)
[2019-04-24] MEDS: BLOOD SUGAR DIAGNOSTIC 1 EACH STRIP IN SCH ×4 (06:46→21:53)
[2019-04-24] MEDS: INSULIN REGULAR, HUMAN 100 UNIT/ML 3 ML VIAL SQ PRN ×4 (06:48→22:00)
[2019-04-24 06:50] LABS: CHOLESTEROL 127 mg/dL (<200); CREATINE KINASE, TOTAL 65 U/L (39-308); HDL CHOLESTEROL 28 mg/dL (40-60); LDL 79 mg/dL (0-99); THYROID STIMULATING HORMONE 1.698 uIU/mL (0.358-3.74); TRIGLYCERIDES 123 mg/dL (30-150)
[2019-04-24 06:53] LABS: CHLORIDE 128 mmol/L (98-107); SODIUM SERUM 165 mmol/L (136-145)
--- NOTE | 2019-04-24 07:09 | NUR ---
RN NOTES RECEIVED CALL FROM LAB, SODIUM LEVEL RESULT IS 165 PER JOSE G. ENDORSED TO AM NURSE FOR CONTINUITY OF CARE.
--- NOTE | 2019-04-24 07:19 | NUR ---
RN NOTES INFORMED ANALYTICS LEADER ELVIA REGARDING SODIUM LEVEL 165 RESULT. ENDORSED TO AM NURSE TO FOLLOW UP.
[2019-04-24 08:00] VITALS: BP 139/75
--- NOTE | 2019-04-24 08:38 | NUR ---
M/S RN OPENING NOTES RECEIVED PATIENT ON BED, A/O X 1, CONFUSED. DNR. RESPIRATION EVEN AND NON LABORED WITH NO ACUTE RESPIRATORY DISTRESS. ABDOMEN SOFT AND NON DISTENDED WITH ACTIVE BOWEL SOUNDS, FC IN PLACE INTACT WITH YELLOW URINE. SKIN WARM TO TOUCH AND DRY. NO S/SX OF PAIN AND DISCOMFORT. IV SITE AT RIGHT FOREARM AND PATENT IN FLUSHING, WITH ORDER OF NS AT 100 ML/HR. PATIENT ON NPO FOR ST EVAL. NIGHT NURSE MAURICIO JENNINGS RN SCHOOL DUE TO HIGH NA, NO RESPONSE YET. ON RESTRAINT TO LEFT HAND, CIRCULATION WELL, NO NEW SKIN BREAKDOWN, WILL MONITOR Q2. WILL CONTINUE TO MONITOR CARE.
--- NOTE | 2019-04-24 08:54 | NUR ---
M/S RN NOTES NOTIFIED MS. RAGLAND FOR VALPROIC ACID 5ML PO TID MEDICATION NON ADMINISTERED SINCE YESTERDAY FOR SEIZURE DISORDER, NEW ORDER OBTAINED FOR BEDSIDE SWALLOW EVAL AND NOTIFY PROVIDER FOR RESULT. ORDER READ BACK, NOTED AND CARRIED OUT.
[2019-04-24] MEDS ORDERED: MISCELLANEOUS MED 1 EA EA PO SCH (09:00)
--- NOTE | 2019-04-24 09:10 | NUR ---
M/S RN NOTES BESIDE SWALLOW SCREENING DONE WITH APPLE SAUCE AND WATER, PATIENT A/O X1, SLURRED SPEECH BASELINE DUE TO CVA WITH RIGHT SIDED WEAKNESS. PT ABLE TO SWALLOW IN SMALL FREQUENT FEEDING, NO COUGH PRESENT, NO FOOD POCKETING. NOTIFIED ELLYN SET UP MOLD TECHNICIAN WITH NEW ORDER TO START FOR CARDIAC DIET PUREED, DOESN'T NEED TO BE THICKENED WATER. ORDER READ BACK, NOTED AND CARRIED OUT. ALSO, NOTIFIED ABOUT NA LEVEL OF CRITICAL HIGH 165, CONTINUE IV NS AT 100 ML/HR, NOT TO GIVE TOO MUCH NS STATED. ORDER READ BACK, NOTED AND CARRIED OUT. CONTINUED IVF ORDERED. WILL CONTINUE TO MONITOR.
--- NOTE | 2019-04-24 09:30 | NUR ---
M/S RN NOTES PT SEEN BY ELLYN PUGA.
[2019-04-24] MEDS: DOCUSATE SODIUM 100 MG CAPSULE PO SCH ×2 (09:38→16:15)
[2019-04-24] MEDS: CALCIUM CARB 600MG /VIT D 1 EACH TABLET PO SCH ×2 (09:38→16:15)
[2019-04-24] MEDS: VALPROIC ACID 250 MG/5 ML UDC PO SCH ×3 (09:38→16:15)
[2019-04-24] MEDS: LINAGLIPTIN 5 MG TABLET PO SCH (09:38)
[2019-04-24] MEDS: QUETIAPINE FUMARATE 25 MG TABLET PO SCH ×2 (09:38→16:15)
[2019-04-24] MEDS: PANTOPRAZOLE 40 MG VIAL IV SCH (09:38)
[2019-04-24] MEDS: ASPIRIN 81 MG TAB.CHEW PO SCH (09:38)
[2019-04-24] MEDS ORDERED: IV NS 0.9% 1,000 ML IV PRN (10:35)
[2019-04-24] MEDS: IV 1/2NS 1000 ML 1,000 ML IV PRN (14:12)
--- NOTE | 2019-04-24 15:02 | NUR ---
M/S RN NOTES VANCO TROUGH DRAWN NOW.
--- NOTE | 2019-04-24 15:30 | NUR ---
M/S RN NOTES PT PROVIDED BED SPONGE BATH. NO BM NOTED. REPOSITIONED TO RIGHT SIDE LYING POSITION
--- NOTE | 2019-04-24 15:40 | NUR ---
M/S RN NOTES CALLED PHARMACY, TALKED TO KATIE FOR VANCOMYCIN TROUGH LEVEL OF 8. MEDICATION TO BE SENT ON FLOOR.
[2019-04-24 16:03] VITALS: BP 127/81
[2019-04-24] MEDS: VANCOMYCIN 0.75 GM in IV D5W 250 ML IV SCH (17:12)
--- NOTE | 2019-04-24 17:55 | NUR ---
M/S RN NOTES CALLED JAYJAY BARRONNO ( ) AT [phone] FOR MRI CHECKLIST DUE TO ORDER OF MRCP WITHOUT CONTRAST. PHONE DIRECTED TO VOICEMAIL AUTOMATICALLY. LEFT A VOICEMAIL.
--- NOTE | 2019-04-24 18:13 | NUR ---
M/S RN NOTES MRI CHECKLIST DONE WITH MS. JAYJAY NELSON VIA PHONE. VERIFIED WITH DEIDRA SILVA.
--- NOTE | 2019-04-24 18:43 | NUR ---
M/S RN CLOSING NOTES PT ON BED, A/O X 1. ON RESTRAINT DUE TO PULLING OUT OF IV AND FC, CIRCULATION PRESENCE, NO SKIN BREAKDOWN NOTED, ABLE TO PERFORM ROM AND EXERCISE. NO ASSESSED SOB. ABD SOFT AND NON DISTENDED, NO BM, WITH ACTIVE BOWEL SOUNDS. ON FC WITH YELLOW URINE 550 CC FOR URINE OUTPUT FOR THE WHOLE SHIFT. NO S/SX OF PAIN AND DISCOMFORT. SKIN WARM TO TOUCH AND DRY. REPOSITIONED SUPINE POSITION. IV SITE AT RIGHT FA, PATENT IN FLUSHING, VANCOMYCIN STILL INFUSING, ON 0.45% NS 125 ML/HR. ALL CARE ATTENDED. BED ON SEMI ULLOA POSITION,PADDED FOR SAFETY. PATIENT COMFORTABLY SLEEPING. ENDORSED PT CARE TO NEXT SHIFT.
--- NOTE | 2019-04-24 19:00 | NUR ---
RN medsurg opening notes Received Pt from morning nurse. Pt is alert and orientedX1. Pt is resting in bed comfortably. Respiration is normal in room air. No SOB. No S/S of distress noted. IV sites at RFA is clean, intact, patent and infusing well 0.45% NS @ 125 ml/hr. Abel cath is intact, patent and draining yellow urine. Seizure precautions is maintained. Safety precautions is maintained. Skin is warm to touch. Bed at low position, brakes locked, side rails upX3 and call light is within reach, bed side rails is padded. Restraint on left hand side with soft wrist restraint. Repositioning and turning Q 2hr. Will continue to monitor.
[2019-04-24 20:00] VITALS: BP 150/94
[2019-04-24] MEDS: FLUCONAZOLE IN NS 100 MG in PREMIX 1 EA IV SCH ×2 (20:17)
[2019-04-25] MEDS: VANCOMYCIN 0.75 GM in IV D5W 250 ML IV SCH ×2 (03:24→16:05)
[2019-04-25] MEDS: PIPERACILLIN /TAZOBACTAM 2.25 G in IV D5W 50 ML IV SCH ×4 (04:39→22:04)
[2019-04-25] MEDS: IV 1/2NS 1000 ML 1,000 ML IV PRN (04:58)
[2019-04-25] MEDS: BLOOD SUGAR DIAGNOSTIC 1 EACH STRIP IN SCH (06:31)
[2019-04-25] MEDS: INSULIN REGULAR, HUMAN 100 UNIT/ML 3 ML VIAL SQ PRN ×2 (06:32→18:01)
[2019-04-25 06:50] LABS: BASOPHILS # (AUTO) 0.1 /CMM (0.0-0.2); BASOPHILS % (AUTO) 0.5 % (0.0-2.0); EOSINOPHILS % (AUTO) 6.5 % (0.0-6.0); HEMATOCRIT 36 % (39-51); HEMOGLOBIN 11.4 g/dL (13.5-17.5); LYMPHOCYTES # (AUTO) 1.4 /CMM (0.8-4.8); LYMPHOCYTES % (AUTO) 11.2 % (20.0-44.0); MEAN CORPUSCULAR HGB CONC 31 g/dl (31.0-36.0); MEAN CORPUSCULAR VOLUME 92 fL (80-96); MONOCYTES # (AUTO) 0.5 /CMM (0.1-1.30); MONOCYTES % (AUTO) 4.1 % (2.0-12.0); NEUTROPHILS # (AUTO) 9.5 /CMM (1.8-8.9); NEUTROPHILS % (AUTO) 77.7 % (43.0-81.0); PLATELET COUNT (AUTO) 181 /CMM (150-450); RED BLOOD CELL COUNT(AUTO) 3.98 MIL/uL (4.5-6.0); WHITE BLOOD COUNT (AUTO) 12.3 K/uL (4.3-11.0)
--- NOTE | 2019-04-25 06:53 | NUR ---
RN medsurg closing notes Pt is alert and orientedX1 with episode of confusion. Pt is resting in bed comfortably. Respiration is normal in room air. No SOB. No nausea or vomiting. No S/S of distress noted. IV sites at RAC# 18 is clean, intact, patent and infusing well 0.45% NS @ 125 ml/hr. Abel cath is intact, patent and draining clear yellow urine 400 ml. VS is stable. Afebrile. Routine meds were given as ordered. Turned and repositioned Q 2hr. Wound care and skin care provided. Kept Pt clean, dry and comfortable. Safety precautions is maintained all the time. Bed at low position, brakes locked, side rails upX3 and call light is within reach. Will endorse to morning nurse for EDA.
--- NOTE | 2019-04-25 07:27 | NUR ---
RN MS OPENING NOTES Patient received on 2l o2, no sob noted, patient shows signs of confusion at this time. Abel cath draining at this time. R AC 18 with 1/2 NS @ 125 ml per hour. Patient shows no s/s of pain at this time. Patient with Soft wrist restraint on his L wrist, to be renewed at 0122. Renewed by MYLENE RN. Bed at the lowest setting, call light within reach, side rails up x2.
[2019-04-25 07:28] LABS: CALCIUM, SERUM 8.8 mg/dL (8.5-10.1); CREATININE 1.3 mg/dL (0.6-1.3); MAGNESIUM 1.9 mg/dL (1.8-2.4); PHOSPHORUS 2.6 mg/dL (2.5-4.9); POTASSIUM 3.8 mmol/L (3.5-5.1)
[2019-04-25 08:00] VITALS: BP 127/70
[2019-04-25] MEDS ORDERED: DEXTROSE 50%-WATER 50 ML DISP.SYRIN IV PRN (08:30)
[2019-04-25] MEDS: VALPROIC ACID 250 MG/5 ML UDC PO SCH ×3 (08:36→16:56)
[2019-04-25] MEDS: PANTOPRAZOLE 40 MG VIAL IV SCH (08:36)
[2019-04-25] MEDS: QUETIAPINE FUMARATE 25 MG TABLET PO SCH ×2 (08:36→16:56)
[2019-04-25] MEDS: LINAGLIPTIN 5 MG TABLET PO SCH (08:36)
[2019-04-25] MEDS: ASPIRIN 81 MG TAB.CHEW PO SCH (08:36)
[2019-04-25] MEDS: CALCIUM CARB 600MG /VIT D 1 EACH TABLET PO SCH ×2 (08:36→16:56)
[2019-04-25] MEDS: DOCUSATE SODIUM 100 MG CAPSULE PO SCH ×2 (08:36→16:56)
--- NOTE | 2019-04-25 12:15 | NUR ---
RN NOTES NPO at this time for a procedure. Insulin not given
[2019-04-25] MEDS: BLOOD SUGAR DIAGNOSTIC 1 EACH STRIP VI SCH ×3 (12:16→21:54)
--- NOTE | 2019-04-25 13:02 | NUR ---
RN NOTES Patient unable to do MRCP, patient unable to lie still.
[2019-04-25] MEDS: IV D5W 1,000 ML IV SCH (14:17)
--- NOTE | 2019-04-25 18:37 | NUR ---
RN CLOSING NOTES Patient remains on 2l nasal cannula, remains a/o x1 and acts confused. Drinks thick fluids, crushed medications, alex remains draining, R AC 18 with D5W 100ml per hour. Bed at the lowest setting, call light within reach, side rails up x2. Will give report to NOC RN for EDA bedside.
--- NOTE | 2019-04-25 19:45 | NUR ---
MS RN OPENING NOTES RECEIVED PATIENT FROM MORNING SHIFT, ALERT AND ORIENTED X 1. AFEBRILE WITH NO S/S OF DISTRESS OBSERVED. BREATHING REGULAR AND UNLABORED ON ROOM AIR. RIGHT AC IV LINE G18 INTACT AND PATENT, INFUSING WELL WITH NO BLEEDING OR S/S OF INFECTION/INFILTRATION NOTED. LEFT WRIST SOFT RESTRAINT ON, SKIN ASSESSMENT AND CIRCULATION CHECKED. NO S/S OF PAIN/DISCOMFORT REPORTED OF THE TIME. LOERA CATH INTACT AND PATENT, DRAINING CLEAR YELLOW URINE WITH MODERATE AMOUNT SEEN ON URINARY BAG. REPOSITIONED ON HIS LEFT LATERAL SIDE. BED LOW AND LOCKED ON SEMI FOWLERS POSITION. CALL LIGHT IN REACH. WILL CONTINUE TO MONITOR.
[2019-04-25] MEDS: FLUCONAZOLE IN NS 100 MG in PREMIX 1 EA IV SCH ×2 (20:22)
[2019-04-25] MEDS: *INSULIN REGULAR(HUMULIN R)HUM 100 UNIT/ML VIAL SQ PRN (21:55)
[2019-04-25 22:00] VITALS: BP 137/76
--- NOTE | 2019-04-25 22:00 | NUR ---
MS RN NOTES BS 181mg/dl, 3UNITS GIVEN SQ. ASSISTED ON EATING SNACKS. MONITORED FOR S/S OF HYPOGLYCEMIA.
[2019-04-26] MEDS: IV D5W 1,000 ML IV SCH (01:23)
[2019-04-26] MEDS: VANCOMYCIN 0.75 GM in IV D5W 250 ML IV SCH ×2 (03:02→17:35)
[2019-04-26 04:00] VITALS: BP 133/83
[2019-04-26] MEDS: PIPERACILLIN /TAZOBACTAM 2.25 G in IV D5W 50 ML IV SCH ×4 (04:15→23:41)
[2019-04-26 06:20] LABS: BASOPHILS % (AUTO) 0.4 % (0.0-2.0); EOSINOPHILS % (AUTO) 7.7 % (0.0-6.0); HEMATOCRIT 34 % (39-51); HEMOGLOBIN 11.2 g/dL (13.5-17.5); LYMPHOCYTES # (AUTO) 1.4 /CMM (0.8-4.8); LYMPHOCYTES % (AUTO) 12.9 % (20.0-44.0); MEAN CORPUSCULAR HGB CONC 33 g/dl (31.0-36.0); MEAN CORPUSCULAR VOLUME 91 fL (80-96); MONOCYTES # (AUTO) 0.5 /CMM (0.1-1.30); MONOCYTES % (AUTO) 4.4 % (2.0-12.0); NEUTROPHILS # (AUTO) 8.1 /CMM (1.8-8.9); NEUTROPHILS % (AUTO) 74.6 % (43.0-81.0); PLATELET COUNT (AUTO) 157 /CMM (150-450); RED BLOOD CELL COUNT(AUTO) 3.79 MIL/uL (4.5-6.0); WHITE BLOOD COUNT (AUTO) 10.9 K/uL (4.3-11.0)
[2019-04-26 06:30] LABS: BILIRUBIN,TOTAL 0.5 mg/dL (0.2-1.0); CALCIUM, SERUM 8.4 mg/dL (8.5-10.1); CREATININE 1.2 mg/dL (0.6-1.3); MAGNESIUM 1.7 mg/dL (1.8-2.4); PHOSPHORUS 2.1 mg/dL (2.5-4.9); POTASSIUM 3.2 mmol/L (3.5-5.1); TOTAL PROTEIN, SERUM 6.6 g/dL (6.4-8.2)
[2019-04-26] MEDS: BLOOD SUGAR DIAGNOSTIC 1 EACH STRIP VI SCH ×4 (06:32→21:35)
[2019-04-26] MEDS: INSULIN REGULAR, HUMAN 100 UNIT/ML 3 ML VIAL SQ PRN ×3 (06:34→16:42)
--- NOTE | 2019-04-26 06:37 | NUR ---
MS RN NOTES BS 159mg/dl, 2UNITS GIVEN SQ. MONITORED FOR S/S OF HYPOGLYCEMIA.
--- NOTE | 2019-04-26 06:38 | NUR ---
MS RN CLOSING NOTES PATIENT IN BED, ALERT AND ORIENTED X 1 WITH NO S/S OF DISTRESS OBSERVED. BREATHING REGULAR AND UNLABORED ON ROOM AIR. RIGHT AC IV LINE G18 INTACT AND PATENT, INFUSING WELL WITH NO BLEEDING OR S/S OF INFECTION/INFILTRATION NOTED. MAINTAINED ON ASPIRATION PRECAUTION, HEAD OF THE BED ELEVATED. RENEWED LEFT SOFT WRIST RESTRAINTS PATIENT STILL CONTINUES TO SCRATCH HIS FACE AND PULL HIS LOERA CATH. SKIN AND CIRCULATION CHECKED. LOERA CATH INTACT AND PATENT DRAINING CLEAR YELLOW URINE WITH 875CC OUTPUT. WOUND TREATMENTS PROVIDED. NO S/S OF PAIN/DISCOMFORT NOTED WITHIN THE SHIFT. BED LOW AND LOCKED ON SEMI FOWLERS POSITION. CALL LIGHT IN REACH. WILL ENDORSE TO MORNING SHIFT FOR EDA.
--- NOTE | 2019-04-26 07:30 | NUR ---
MS RN OPENING NOTES RECEIVED PATIENT IN BED RESTING COMFORTABLY IN MODERATE HIGH BACK REST, ALERT AND ORIENTED X 1 WITH NO S/S OF DISTRESS NOTED AT THIS TIME. BREATHING REGULAR AND UNLABORED ON ROOM AIR. RIGHT AC IV LINE G18 INTACT AND PATENT, INFUSING WELL WITH NO BLEEDING OR S/S OF INFECTION/INFILTRATION NOTED. ON LEFT SOFT WRIST RESTRAINTS. SKIN AND CIRCULATION CHECKED. LOERA CATH INTACT AND PATENT DRAINING CLEAR YELLOW URINE. SAFETY MEASURES IN PLACE, BED LOW AND LOCKED POSITION WITH SIDE RAILS UP X2. CALL LIGHT WITHIN REACH. WILL CONTINUE TO MONITOR FOR EDA.
[2019-04-26 08:00] VITALS: BP 133/83
[2019-04-26] MEDS: VALPROIC ACID 250 MG/5 ML UDC PO SCH ×3 (08:24→16:09)
[2019-04-26] MEDS: PANTOPRAZOLE 40 MG VIAL IV SCH (08:24)
[2019-04-26] MEDS: QUETIAPINE FUMARATE 25 MG TABLET PO SCH ×2 (08:25→16:09)
[2019-04-26] MEDS: CALCIUM CARB 600MG /VIT D 1 EACH TABLET PO SCH ×2 (08:25→16:09)
[2019-04-26] MEDS: ASPIRIN 81 MG TAB.CHEW PO SCH (08:25)
[2019-04-26] MEDS: LINAGLIPTIN 5 MG TABLET PO SCH (08:25)
[2019-04-26] MEDS: DOCUSATE SODIUM 100 MG CAPSULE PO SCH ×2 (08:25→16:09)
[2019-04-26] MEDS ORDERED: POTASSIUM CHLORIDE 20 MEQ TAB.PRT.SR PO SCH (11:30)
[2019-04-26] MEDS ORDERED: K PHOS NEUTRAL 250 MG TABLET PO ONE (11:30)
[2019-04-26] MEDS: Magnesium 1GM/D5W 100ML PREMIX 100 ML IV SCH ×2 (11:44→12:40)
--- NOTE | 2019-04-26 13:27 | NUR ---
MS/RN NOTE THE KATIE OLEARY IS MADE AWARE THAT MRCP WAS NOT DONE YESTERDAY DUE TO PATIENT BEING RESTLESS, COMBATIVE. RECEIVED NEW ORDER FOR ATIVAN 0.5 MG IV PUSH X1 DOSE. THE ORDER IS NOTED AND CARRIED OUT. THE MEDICATION WILL BE ADMINISTERED BEFORE MRCP. ASSIGNED RN IS MADE AWARE.
[2019-04-26] MEDS ORDERED: LORAZEPAM INJ 2 MG/ML VIAL IV PRN (13:30)
[2019-04-26] MEDS: HYDROGEL DRESSING 90 GM TUBE TP SCH (13:42)
[2019-04-26] MEDS: Z GUARD REMEDY 2 OZ OINT TP SCH ×2 (13:42→21:35)
--- NOTE | 2019-04-26 14:11 | NUR ---
RN NOTES PATIENT WAS PICKED UP BY 2 HOSP STAFF VIA [facility] FOR MRCP, PATIENT IN NO SIGNS OF DISTRESS, IN STABLE CONDITION.
--- NOTE | 2019-04-26 15:45 | NUR ---
RN NOTES CALLED PHARMACY REGARDING THE VANCO, PER PHARMACY WAITING FOR THE VANCO TROUGH RESULTS AND WILL JUST SEND THE VANCO WHEN THEY HAVE THE RESULTS. WILL F/U
[2019-04-26 16:00] VITALS: BP 151/96
[2019-04-26] MEDS: GLUCERNA SHAKE 237 ML CAN PO SCH (17:34)
--- NOTE | 2019-04-26 18:27 | NUR ---
MS RN CLOSING NOTES PATIENT IN BED RESTING COMFORTABLY IN MODERATE HIGH BACK REST, ALERT AND ORIENTED X 1 WITH NO S/S OF DISTRESS NOTED THROUGHOUT THE SHIFT. SITTER AT BEDSIDE. BREATHING REGULAR AND UNLABORED ON ROOM AIR. RIGHT AC IV LINE G18 INTACT AND PATENT, INFUSING WELL WITH NO BLEEDING OR S/S OF INFECTION/INFILTRATION NOTED. ON LEFT SOFT WRIST RESTRAINTS. SKIN AND CIRCULATION CHECKED. LOERA CATH INTACT AND PATENT DRAINING CLEAR YELLOW URINE. SAFETY MEASURES IN PLACE, BED LOW AND LOCKED POSITION WITH SIDE RAILS UP X2. CALL LIGHT WITHIN REACH. WILL ENDORSE TO ORTHOPEDIC CAST SPECIALIST NURSE FOR EDA.
--- NOTE | 2019-04-26 19:25 | NUR ---
RN OPEN NOTES RECEIVED PATIENT RESTING IN BED, EASILY AROUSABLE WITH SITTER AT BEDSIDE. A/OX1. NO SIGNS OF DISTRESS OR DISCOMFORT. BREATHING EVEN AND UNLABORED. IV ACCESS IN RAC WITH D5W INFUSING, PATENT AND INTACT, NO SIGNS OF REDNESS OR INFILTRATION. HAS F/C INTACT, DRAINING CLEAR YELLOW FLUID. HAS LEFT SOFT WRIST RESTRAINT WITH NO SKIN OR CIRCULATION ISSUES NOTED. BED IN LOW LOCKED POSITION WITH SIDE RAILS X2. CALL LIGHT WITHIN REACH. WILL CONTINUE TO MONITOR.
[2019-04-26 20:00] VITALS: BP 104/57
[2019-04-26] MEDS: FLUCONAZOLE IN NS 100 MG in PREMIX 1 EA IV SCH ×2 (21:28)
[2019-04-26] MEDS: *INSULIN REGULAR(HUMULIN R)HUM 100 UNIT/ML VIAL SQ PRN (21:38)
[2019-04-27] MEDS: VANCOMYCIN 0.75 GM in IV D5W 250 ML IV SCH ×2 (03:42→15:25)
[2019-04-27] MEDS: IV D5W 1,000 ML IV PRN ×2 (03:47→21:16)
[2019-04-27] MEDS: PIPERACILLIN /TAZOBACTAM 2.25 G in IV D5W 50 ML IV SCH ×4 (05:04→22:31)
[2019-04-27] MEDS: BLOOD SUGAR DIAGNOSTIC 1 EACH STRIP VI SCH ×4 (06:45→21:09)
[2019-04-27] MEDS: INSULIN REGULAR, HUMAN 100 UNIT/ML 3 ML VIAL SQ PRN ×2 (06:47→16:44)
--- NOTE | 2019-04-27 07:04 | NUR ---
RN CLOSING NOTES PATIENT RESTING IN BED, EASILY AROUSABLE WITH SITTER AT BEDSIDE. A/OX1. NO SIGNS OF DISTRESS OR DISCOMFORT. BREATHING EVEN AND UNLABORED. IV ACCESS IN RAC WITH D5W INFUSING, PATENT AND INTACT, NO SIGNS OF REDNESS OR INFILTRATION. HAS F/C INTACT, DRAINING CLEAR YELLOW FLUID. ALL NEEDS MET. NO SIGNIFICANT CHANGES THROUGH THE NIGHT. PATIENT REPOSITIONED Q2H AND PRN. BED IN LOW LOCKED POSITION WITH SIDE RAILS X2. CALL LIGHT WITHIN REACH. WILL ENDORSE TO AM SHIFT FOR EDA.
[2019-04-27 07:23] LABS: CALCIUM, SERUM 8.6 mg/dL (8.5-10.1); CREATININE 1.2 mg/dL (0.6-1.3); POTASSIUM 4.2 mmol/L (3.5-5.1)
--- NOTE | 2019-04-27 07:30 | NUR ---
MS/RN - Assessment Patient is alert to self, confused and disoriented, reality orientation given, resting in bed comfortably, no apparent distress, afebrile, stable on room air. Peripheral IV on the RAC was infiltrated, line removed, ice pack applied, extremity elevated. New peripheral IV placed on the left hand g20. Abel catheter in place for skin management. Patient s/p sacral wound debridement yesterday, wound treatment and skin care provided. Patient currently NPO for HIDA scan today. Fall, aspiration and seizure precautions maintained. Will continue with current plan of care.
[2019-04-27 08:00] VITALS: BP 156/90
[2019-04-27] MEDS: GLUCERNA SHAKE 237 ML CAN PO SCH ×3 (08:00→16:40)
[2019-04-27] MEDS: ASPIRIN 81 MG TAB.CHEW PO SCH (08:11)
[2019-04-27] MEDS: PANTOPRAZOLE 40 MG VIAL IV SCH (08:11)
[2019-04-27] MEDS: VALPROIC ACID 250 MG/5 ML UDC PO SCH ×3 (08:12→16:23)
[2019-04-27] MEDS: LINAGLIPTIN 5 MG TABLET PO SCH (08:12)
[2019-04-27] MEDS: Z GUARD REMEDY 2 OZ OINT TP SCH ×2 (08:12→21:10)
[2019-04-27] MEDS: QUETIAPINE FUMARATE 25 MG TABLET PO SCH ×2 (08:12→16:22)
[2019-04-27] MEDS: CALCIUM CARB 600MG /VIT D 1 EACH TABLET PO SCH ×2 (08:12→16:25)
[2019-04-27] MEDS: DOCUSATE SODIUM 100 MG CAPSULE PO SCH ×2 (08:12→16:00)
[2019-04-27] MEDS: HYDROGEL DRESSING 90 GM TUBE TP SCH (08:13)
--- NOTE | 2019-04-27 10:20 | NUR ---
MS/RN - HIDA scan Patient awake, no s/s of pain, not in any form distress, off the unit for HIDA scan.
--- NOTE | 2019-04-27 11:45 | NUR ---
MS/RN - Notes Patient returned to room post HIDA scan.
[2019-04-27 16:00] VITALS: BP 130/98
--- NOTE | 2019-04-27 17:14 | NUR ---
MS/RN - End of shift summary Patient alert to self, lethargic, poor appetite, no s/s of pain, not in any form of distress, remain afebrile, no seizure activity noted. IVF D5W at 100 ml/hr infusing well on the left hand with no signs of infiltration. Continue IV antibiotics for PNA/UTI. Will continue with current medical management.
--- NOTE | 2019-04-27 19:15 | NUR ---
RN INITIAL NOTES; RECEIVED REPORT FROM KATHRINE SILVA. PT IN BED, AWAKE, A/O X1, ON RA, RESPIRATIONS EVEN AND UNLABORED. PT S/P SACRAL WOUND DEBRIDEMENT AND RIGHT BUTTOCK WOUND DEBRIDEMENT ON 04/[address] HENDERSON. PT HAVING SOFT MUSHY STOOL DURING DAYSHIFT, PT ON COLACE, WAS HELD BY DAY RN FOR TODAY. PT HAS LOERA CATHETER IN PLACED, DRAINING BY GRAVITY. PT REPORTEDLY HAVING POOR ORAL INTAKE, NOW ON CALORIE COUNTING. PT HAS IV ON LEFT HAND G 20 PATENT AND FLUSHING WELL, SECURED WITH COBAN PT KEPT PULLING LINES MULTIPLE TIMES. PT RECEIVING D5W AT 100ML/HR. SITTER AT BED SIDE. SAFETY PRECAUTIONS FOR FALL INITIATED, CALL LIGHT IN REACH, WILL CONTINUE MONITORING PT.
--- NOTE | 2019-04-27 19:46 | NUR ---
RN NOTES: SEEN BY REGGIE SHAH.
[2019-04-27 20:00] VITALS: BP 127/77
[2019-04-27] MEDS: *INSULIN REGULAR(HUMULIN R)HUM 100 UNIT/ML VIAL SQ PRN (21:13)
--- NOTE | 2019-04-27 21:17 | NUR ---
BLOOD GLUCOSE 316: ACCU CHECK PERFORMED RESULT IS 316, 8UNITS OF INSULIN GIVEN PER SLIDING SCALE, PT ON D5W AT 100ML/HR, POOR ORAL INTAKE. WILL CONTINUE MONITORING FOR ANY S/S OF HYPOGLYCEMIA AND HYPERGLYCEMIA.
--- NOTE | 2019-04-27 21:22 | NUR ---
RN NOTES: PT HAD 2 SOFT MUSHY BM. WASHED BY ACETYLENE PLANT OPERATOR, NEW CHUCKS PROVIDED. WOUND CARE TREATMENT PROVIDED.
[2019-04-28] MEDS: PIPERACILLIN /TAZOBACTAM 2.25 G in IV D5W 50 ML IV SCH ×4 (04:31→22:25)
[2019-04-28] MEDS: BLOOD SUGAR DIAGNOSTIC 1 EACH STRIP VI SCH ×4 (06:28→21:39)
[2019-04-28] MEDS: INSULIN REGULAR, HUMAN 100 UNIT/ML 3 ML VIAL SQ PRN (06:29)
--- NOTE | 2019-04-28 06:41 | NUR ---
END OF SHIFT SUMMARY: PT REMAINS A/O X1, REORIENTATION TO REALITY AND SITUATION PROVIDED. MULTIPLE EPISODE OF PT PULLING OUT LINES, BUT UNSUCCESSFUL SITTER WAS VERY ATTENTIVE TO PT, CAUGHT IT BEFORE PT ABLE TO PULL THE IV OUT. LATEST BLOOD GLUCOSE IS 225, 6 UNITS OF INSULIN PROVIDED PER SLIDING SCALE. IV ACCESS REMAINS PATENT AND FLUSHING WELL, INFUSING WITH D5W AT 100ML/HR. PT ABLE TO SLEEP FOR A PERIOD OF 8HRS. ASSISTED CRANBERRY BOG SUPERVISOR IN PROVIDING BED BATH TO PT. COMPLETE LINEN CHANGED PROVIDED. MULTIPLE DRESSING CHANGES PROVIDED PT HAD TOTAL OF 8 SOFT, MUSHY BM. LOERA CATHETER REMAINS IN PLACED, BAG EMPTIED BY CRANBERRY BOG SUPERVISOR WITH TOTAL OUTPUT OF 550 ML. PT REMAINS ON FALL AND SEIZURE PRECAUTIONS, ASPIRATION PRECAUTIONS MAINTAINED. BLE KEPT OFFLOADED ON PILLOWS. VS REMAINS STABLE, NEEDS ATTENDED. SAFETY PRECAUTIONS FOR FALL REMAINS ENGAGED, CALL LIGHT IN REACH, WILL ENDORSE TO DAY RN FOR CONTINUITY OF CARE.
[2019-04-28 06:53] LABS: BASOPHILS % (AUTO) 0.4 % (0.0-2.0); EOSINOPHILS % (AUTO) 7.6 % (0.0-6.0); HEMATOCRIT 32 % (39-51); HEMOGLOBIN 10.8 g/dL (13.5-17.5); LYMPHOCYTES # (AUTO) 1.2 /CMM (0.8-4.8); LYMPHOCYTES % (AUTO) 12.8 % (20.0-44.0); MEAN CORPUSCULAR HGB CONC 33 g/dl (31.0-36.0); MEAN CORPUSCULAR VOLUME 89 fL (80-96); MONOCYTES # (AUTO) 0.5 /CMM (0.1-1.30); NEUTROPHILS % (AUTO) 74.2 % (43.0-81.0); PLATELET COUNT (AUTO) 131 /CMM (150-450); RED BLOOD CELL COUNT(AUTO) 3.61 MIL/uL (4.5-6.0); WHITE BLOOD COUNT (AUTO) 9.4 K/uL (4.3-11.0)
[2019-04-28 07:19] LABS: ALANINE AMINOTRANSFERASE < 6 U/L (12-78); ALBUMIN 1.7 g/dL (3.4-5.0); ALKALINE PHOSPHATASE 62 U/L (46-116); ASPARTATE AMINOTRANSFERASE 9 U/L (15-37); BILIRUBIN,TOTAL 0.5 mg/dL (0.2-1.0); CARBON DIOXIDE 26 mmol/L (21-32); CHLORIDE 113 mmol/L (98-107); CREATININE 1.1 mg/dL (0.6-1.3); GLUCOSE 251 mg/dL (74-106); MAGNESIUM 1.8 mg/dL (1.8-2.4); PHOSPHORUS 2.2 mg/dL (2.5-4.9); POTASSIUM 3.3 mmol/L (3.5-5.1); SODIUM SERUM 145 mmol/L (136-145); UREA NITROGEN, BLOOD 11 mg/dL (7-18)
--- NOTE | 2019-04-28 07:28 | NUR ---
MS/RN OPENING NOTE PATIENT RECEIVED IN BED, A/O X1, REORIENTATION TO REALITY AND SITUATION, RESTING IN BED COMFORTABLY, SHOW NO SIGNS OF APPARENT DISTRESS, AFEBRILE, STABLE ON RA. SITTER IS AT THE BEDSIDE. PERIPHERAL IV CLEAN AND PATENT ON L HAND 20G, RUNNING AT 100ML/HR D5W. LOERA CATHETER IN PLACE, WOUND TREATMENT AND SKIN CARE PROVIDED ORDERED. FALL, ASPIRATION, AND SEIZURE PRECAUTIONS MAINTAINED. WILL CONTINUE WITH CURRENT PLAN OF CARE.
[2019-04-28] MEDS: LINAGLIPTIN 5 MG TABLET PO SCH (08:27)
[2019-04-28] MEDS: ASPIRIN 81 MG TAB.CHEW PO SCH (08:27)
[2019-04-28] MEDS: QUETIAPINE FUMARATE 25 MG TABLET PO SCH ×2 (08:27→16:05)
[2019-04-28] MEDS: CALCIUM CARB 600MG /VIT D 1 EACH TABLET PO SCH ×2 (08:28→16:05)
[2019-04-28] MEDS: VALPROIC ACID 250 MG/5 ML UDC PO SCH ×3 (08:28→16:04)
[2019-04-28] MEDS: PANTOPRAZOLE 40 MG VIAL IV SCH (08:29)
[2019-04-28] MEDS: GLUCERNA SHAKE 237 ML CAN PO SCH ×3 (08:32→16:05)
[2019-04-28] MEDS: Z GUARD REMEDY 2 OZ OINT TP SCH ×2 (08:32→20:27)
[2019-04-28] MEDS: HYDROGEL DRESSING 90 GM TUBE TP SCH (08:32)
[2019-04-28] MEDS: DOCUSATE SODIUM 100 MG CAPSULE PO SCH ×2 (08:50→16:06)
[2019-04-28] MEDS ORDERED: K PHOS NEUTRAL 250 MG TABLET PO ONE (09:00)
[2019-04-28 09:41] VITALS: BP 122/89
[2019-04-28] MEDS ORDERED: POTASSIUM CHLORIDE 20 MEQ TAB.PRT.SR PO SCH (11:00)
[2019-04-28] MEDS: ENOXAPARIN SODIUM 40 MG/0.4 ML DISP.SYRIN SQ SCH (12:11)
[2019-04-28] MEDS: IV D5W 1,000 ML IV PRN (14:11)
[2019-04-28] MEDS: *INSULIN REGULAR(HUMULIN R)HUM 100 UNIT/ML VIAL SQ PRN ×3 (15:25→21:44)
[2019-04-28 15:50] VITALS: BP 117/86
--- NOTE | 2019-04-28 18:28 | NUR ---
MS/RN CLOSING NOTE PATIENT SLEPT THROUGHOUT SHIFT, ALERT TO SELF, POOR APPETITE, SHOWS NO S/S OF ACUTE DISTRESS OR PAIN, REMAINS AFEBRILE, VITALS WNL, NO SEIZURE ACTIVITY NOTED. IVF D5W AT 100 ML/HR ON LEFT HAND 20G. POTASSIUM AND PHOSPHATE REPLACED PER MD ORDERS. CONTINUE IV ABX ORDERED. FALL, SAFETY AND SEIZURE PRECAUTIONS MAINTAINED. WILL ENDORSE TO LINK TRAINER OPERATOR.
--- NOTE | 2019-04-28 19:30 | NUR ---
MS RN OPENING NOTES RECEIVED PATIENT FROM MORNING SHIFT, ALERT AND ORIENTED X 1. AFEBRILE WITH NO S/S OF DISTRESS OBSERVED. BREATHING REGULAR AND UNLABORED ON ROOM AIR. LEFT HAND G20 IV LINE INTACT AND PATENT, INFUSING WELL WITH NO BLEEDING OR S/S OF INFECTION/INFILTRATION NOTED. NO S/S OF PAIN/DISCOMFORT REPORTED OF THE TIME. LOERA CATH INTACT AND PATENT, DRAINING CLEAR YELLOW URINE WITH SCANT AMOUNT SEEN ON URINARY BAG. BED LOW AND LOCKED ON SEMI FOWLERS POSITION. CALL LIGHT IN REACH. WILL CONTINUE TO MONITOR.
[2019-04-28] MEDS: FLUCONAZOLE (100 MG) 100 MG TABLET PO SCH (20:18)
--- NOTE | 2019-04-28 21:45 | NUR ---
MS RN NOTES BS 124mg/dl, NO INSULIN COVERAGE NEEDED. WILL CONTINUE TO MONITOR FOR S/S OF HYPO/HYPERGLYCEMIA.
[2019-04-28 22:00] VITALS: BP 117/68
[2019-04-29] MEDS: IV D5W 1,000 ML IV PRN (00:42)
[2019-04-29] MEDS: PIPERACILLIN /TAZOBACTAM 2.25 G in IV D5W 50 ML IV SCH ×4 (04:22→23:01)
--- NOTE | 2019-04-29 06:22 | NUR ---
MS RN CLOSING NOTES PATIENT IN BED, ALERT AND ORIENTED X 1 WITH NO S/S OF DISTRESS OBSERVED. BREATHING REGULAR AND UNLABORED ON ROOM AIR. LEFT FOREARM IV LINE G20 INTACT AND PATENT, INFUSING WELL WITH NO BLEEDING OR S/S OF INFECTION/INFILTRATION NOTED. MAINTAINED ON ASPIRATION PRECAUTION, HEAD OF THE BED ELEVATED. LOERA CATH INTACT AND PATENT DRAINING CLEAR YELLOW URINE WITH 1100CC OUTPUT. WOUND TREATMENTS PROVIDED. NO S/S OF PAIN/DISCOMFORT NOTED WITHIN THE SHIFT. BED LOW AND LOCKED ON SEMI FOWLERS POSITION. CALL LIGHT IN REACH. WILL ENDORSE TO MORNING SHIFT FOR EDA.
[2019-04-29] MEDS: BLOOD SUGAR DIAGNOSTIC 1 EACH STRIP VI SCH ×4 (06:30→22:01)
[2019-04-29] MEDS: INSULIN REGULAR, HUMAN 100 UNIT/ML 3 ML VIAL SQ PRN (06:33)
[2019-04-29 07:03] LABS: CALCIUM, SERUM 7.8 mg/dL (8.5-10.1); MAGNESIUM 1.5 mg/dL (1.8-2.4); PHOSPHORUS 2.1 mg/dL (2.5-4.9); POTASSIUM 3.2 mmol/L (3.5-5.1)
[2019-04-29 07:07] LABS: BASOPHILS % (AUTO) 0.4 % (0.0-2.0); EOSINOPHILS % (AUTO) 9.3 % (0.0-6.0); HEMATOCRIT 31 % (39-51); HEMOGLOBIN 10.2 g/dL (13.5-17.5); LYMPHOCYTES # (AUTO) 1.2 /CMM (0.8-4.8); LYMPHOCYTES % (AUTO) 17.5 % (20.0-44.0); MEAN CORPUSCULAR HGB CONC 33 g/dl (31.0-36.0); MEAN CORPUSCULAR VOLUME 90 fL (80-96); MONOCYTES # (AUTO) 0.4 /CMM (0.1-1.30); MONOCYTES % (AUTO) 6.7 % (2.0-12.0); NEUTROPHILS # (AUTO) 4.4 /CMM (1.8-8.9); NEUTROPHILS % (AUTO) 66.1 % (43.0-81.0); PLATELET COUNT (AUTO) 131 /CMM (150-450); RED BLOOD CELL COUNT(AUTO) 3.49 MIL/uL (4.5-6.0); WHITE BLOOD COUNT (AUTO) 6.6 K/uL (4.3-11.0)
--- NOTE | 2019-04-29 07:15 | NUR ---
MS RN NOTES PATIENT IN BED ALERT ORIENTED X 1. NO ACUTE DISTRESS NOTED. BREATHING UNLABORED. NO SOB NOTED. SITTER AT BEDSIDE. IV ACCESS PATENT AND INTACT, NO REDNESS, NO SWELLING NOTED.LOERA CATHETER INTACT DRAINING WELL. SAFETY MEASURES IN PLACE. CALL LIGHT WITHIN REACH. WILL CONTINUE TO MONITOR ACCORDINGLY
[2019-04-29 08:00] VITALS: BP 136/79
[2019-04-29] MEDS: GLUCERNA SHAKE 237 ML CAN PO SCH ×3 (08:06→17:00)
[2019-04-29] MEDS: DOCUSATE SODIUM 100 MG CAPSULE PO SCH ×2 (09:22→17:00)
[2019-04-29] MEDS: ASPIRIN 81 MG TAB.CHEW PO SCH (09:22)
[2019-04-29] MEDS: CALCIUM CARB 600MG /VIT D 1 EACH TABLET PO SCH ×2 (09:22→17:00)
[2019-04-29] MEDS: FLUCONAZOLE (100 MG) 100 MG TABLET PO SCH (09:22)
[2019-04-29] MEDS: QUETIAPINE FUMARATE 25 MG TABLET PO SCH ×2 (09:22→17:00)
[2019-04-29] MEDS: LINAGLIPTIN 5 MG TABLET PO SCH (09:22)
[2019-04-29] MEDS: ENOXAPARIN SODIUM 40 MG/0.4 ML DISP.SYRIN SQ SCH (09:23)
[2019-04-29] MEDS: VALPROIC ACID 250 MG/5 ML UDC PO SCH ×3 (09:23→17:00)
[2019-04-29] MEDS: PANTOPRAZOLE 40 MG VIAL IV SCH (09:23)
[2019-04-29] MEDS: HYDROGEL DRESSING 90 GM TUBE TP SCH (09:25)
[2019-04-29] MEDS: Z GUARD REMEDY 2 OZ OINT TP SCH ×2 (09:25→21:57)
[2019-04-29] MEDS: POTASSIUM CHLORIDE 20 MEQ TAB.PRT.SR PO SCH ×2 (10:05→11:19)
[2019-04-29] MEDS: Magnesium 1GM/D5W 100ML PREMIX 100 ML IV SCH ×2 (11:20→12:23)
[2019-04-29] MEDS ORDERED: K PHOS NEUTRAL 250 MG TABLET PO ONE (12:00)
--- NOTE | 2019-04-29 12:25 | NUR ---
MS RN NOTES PATIENT ATE A LITTLE FOR LUNCH, REFUSING TO EAT MORE DESPITE OF EXPLANATION OF RISK AND BENEFITS, INSULIN NOT GIVEN.
--- NOTE | 2019-04-29 17:01 | NUR ---
MS RN NOTES SEEN AND EVALUATED BY VIVIEN GARIBAY WITH NEW ORDERS MADE TO INSERT NGT, DIETARY CONSULT FOR TUBE FEEDING FORMULA RECOMMENDATION AND CHEST XRAY TO CONFIRM PLACEMENT ONCE NGT INSERTED, NOTED AND CARRIED OUT.
--- NOTE | 2019-04-29 17:20 | NUR ---
MS RN NOTES PATIENT REFUSED NGT INSERTION DESPITE OF EXPLANATION OF RISK AND BENEFITS, PATIENT STRONGLY REFUSED. EQUIPMENT SPECIALIST JESÚS SPEARS NOTIFIED.
--- NOTE | 2019-04-29 17:34 | NUR ---
MS RN NOTES PATIENT REFUSED TO EAT DINNER DESPITE OF EXPLANATION OF RISK AND BENEFITS, INSULIN NOT GIVEN.
--- NOTE | 2019-04-29 19:00 | NUR ---
RECIEVED ALERT TO NURSE AT THE BEDSIDE. SMILES BUT NONVERBAL. WILL FOLLOW SIMPLE DIRECTIONS. HE REMOVED HIS IV..RESTARTED RIGHT HAND NOTED THE ARM IS 2+ EDEMA RIGHT ARM FLACCID HE THRASHES ABOUT IN THE BED UNCOVERS HIMSELF AND GOES FROM SIDE TO SIDE
--- NOTE | 2019-04-29 19:08 | NUR ---
MS RN NOTES PATIENT IN BED ALERT ORIENTED X 1. NO ACUTE DISTRESS NOTED. BREATHING UNLABORED. NO SOB NOTED. SITTER AT BEDSIDE. IV ACCESS PATENT AND INTACT, NO REDNESS, NO SWELLING NOTED.LOERA CATHETER INTACT DRAINING WELL.NEEDS ATTENDED AND ANTICIPATED. KEPT CLEAN DRY AND COMFORTABLE. TURN AND REPOSITIONED PER PROTOCOL. SAFETY MEASURES IN PLACE. CALL LIGHT WITHIN REACH. WILL ENDORSE TO NIGHT NURSE FOR CONTINUITY OF CARE.
[2019-04-29 20:00] VITALS: BP 154/80
[2019-04-29] MEDS: *INSULIN REGULAR(HUMULIN R)HUM 100 UNIT/ML VIAL SQ PRN (22:04)
[2019-04-30] MEDS: PIPERACILLIN /TAZOBACTAM 2.25 G in IV D5W 50 ML IV SCH (04:37)
[2019-04-30] MEDS: BLOOD SUGAR DIAGNOSTIC 1 EACH STRIP VI SCH ×4 (06:03→21:35)
[2019-04-30] MEDS: INSULIN REGULAR, HUMAN 100 UNIT/ML 3 ML VIAL SQ PRN (06:11)
[2019-04-30 06:35] LABS: CALCIUM, SERUM 8.5 mg/dL (8.5-10.1); CREATININE 0.9 mg/dL (0.6-1.3); MAGNESIUM 1.9 mg/dL (1.8-2.4); PHOSPHORUS 1.9 mg/dL (2.5-4.9); POTASSIUM 3.1 mmol/L (3.5-5.1)
--- NOTE | 2019-04-30 07:30 | NUR ---
MS RN OPENING NOTES RECEIVED PT IN BED, ASLEEP EASILY AROUSED. A/O X1. PT TOLERATING RA, WITH NO ACUTE RESPIRATORY DISTRESS NOTED. PT DENIES ANY PAIN OR DISCOMFORT AT THIS TIME. PT ALSO DENIES ANY CONCERNS OR QUESTIONS AT THE MOMENT. PIV TO LFA G22, FLUSHED WITH NS, INTACT AND OPERATIONAL. FC IN PLACE WITH CLEAR, YELLOW URINE IN THE BAG. PER SERVICE ASSISTANT NURSE, PT REFUSED TO HAVE NGT INSERTED, PATTERN DRUM MAKER/ALICE AWARE AND NO RESPONSE UP TO THIS TIME, RN TO FOLLOW UP AGAIN. PT KEPT COMFORTABLE. CALL LIGHT KEPT WITHIN REACH. PT'S BED IN LOWEST, LOCKED POSITION WITH SR X3. WILL CONTINUE PLAN OF CARE.
[2019-04-30 08:00] VITALS: BP 144/76
[2019-04-30] MEDS: GLUCERNA SHAKE 237 ML CAN PO SCH ×3 (08:03→16:25)
[2019-04-30] MEDS: DOCUSATE SODIUM 100 MG CAPSULE PO SCH ×2 (08:15→16:22)
[2019-04-30] MEDS: VALPROIC ACID 250 MG/5 ML UDC PO SCH ×3 (08:15→16:22)
[2019-04-30] MEDS: CALCIUM CARB 600MG /VIT D 1 EACH TABLET PO SCH ×2 (08:15→16:22)
[2019-04-30] MEDS: PANTOPRAZOLE 40 MG VIAL IV SCH (08:15)
[2019-04-30] MEDS: LINAGLIPTIN 5 MG TABLET PO SCH (08:15)
[2019-04-30] MEDS: QUETIAPINE FUMARATE 25 MG TABLET PO SCH ×2 (08:15→16:25)
[2019-04-30] MEDS: ASPIRIN 81 MG TAB.CHEW PO SCH (08:20)
[2019-04-30] MEDS: HYDROGEL DRESSING 90 GM TUBE TP SCH (08:21)
[2019-04-30] MEDS: Z GUARD REMEDY 2 OZ OINT TP SCH ×2 (08:21→21:35)
[2019-04-30] MEDS: ENOXAPARIN SODIUM 40 MG/0.4 ML DISP.SYRIN SQ SCH (08:39)
--- NOTE | 2019-04-30 09:15 | NUR ---
MS RN NOTES PT REFUSED BREAKFAST, BUT PY ABLE TO DRINK THICKENED APPLE JUICE WITHOUT DIFFICULTY. PT ALSO REFUSED LOVENOX. PO MEDS CRUSHED AND MIXED WITH PUDDING; ONLY HAFT OF IT WAS TAKEN BY PT.
[2019-04-30] MEDS ORDERED: POTASSIUM CHLORIDE 20 MEQ TAB.PRT.SR PO SCH (10:30)
[2019-04-30] MEDS: POTASSIUM CL. PREMIX PERIPHER. 50 ML IV SCH ×4 (10:47→14:30)
[2019-04-30] MEDS ORDERED: K PHOS NEUTRAL 250 MG TABLET PO ONE (11:00)
--- NOTE | 2019-04-30 11:45 | NUR ---
MS RN NOTES PT CAME BACK FROM APPOINTMENT. NO PAIN OR ANY CONCERNS AT THIS TIME. PT BROUGHT FOOD FROM OUTSIDE.
--- NOTE | 2019-04-30 12:30 | NUR ---
MS RN NOTES PT REFUSED REGULAR INSULIN 2UNITS. PT REFUSED TO EAT LUNCH WELL. ONLY APPLE JUICE AND SOME SIPS OF GLUCERNA WAS TAKEN FOR LUNCH. GI BUCKRAM SEWER/KB AWARE AND RN TRIED TO PUT NGT AGAIN, PT INSISTED TO REFUSED - BUCKRAM SEWER/ALICE AWARE. WILL CONTINUE PLAN OF CARE.
[2019-04-30 16:00] VITALS: BP 157/90
--- NOTE | 2019-04-30 19:20 | NUR ---
RN NOTES: RECEIVED AWAKE ON BED, SEMI FOWLERS POSITION, ON ROOM AIR, NO SOB NOTED, BREATHING SPONTANEOUSLY, A/0X1 WITH PERIODS OF CONFUSION, ORIENTED TO UNIT AND STAFF, FALL AND SAFETY PRECAUTION OBSERVE,IV CANNULA LFA G#22 SL,LOERA CATH IN PLACE, DRAINING INTO YELLOWISH COLORED URINE AT 150 CC LEVEL, NO SEDIMENTS NOTED, HIGH RISK FOR FALL, BED LOW AND LOCKED, CALL, SIDE RAILS X3 UP, CALL LIGHT WITHIN EASY REACH. KEPT ON CLOSE WATCH, CALLS AND NEEDS ATTENDED.
--- NOTE | 2019-04-30 19:50 | NUR ---
MS RN CLOSING NOTES PT IN BED, ASLEEP EASILY AROUSED. A/O X1. PT TOLERATING RA, WITH NO ACUTE RESPIRATORY DISTRESS NOTED. PT DENIES ANY PAIN OR DISCOMFORT AT THIS TIME. PIV TO LFA G22, FLUSHED WITH NS, INTACT AND OPERATIONAL. FC IN PLACE WITH CLEAR, YELLOW URINE IN THE BAG. ALL NEEDS AND CARE ATTENDED. PT KEPT COMFORTABLE. CALL LIGHT KEPT WITHIN REACH. PT'S BED IN LOWEST, LOCKED POSITION WITH SR X3. ENDORSED TO INCOMING NIGHT NURSE FOR EDA.
[2019-04-30 20:00] VITALS: BP 154/74
[2019-04-30] MEDS: *INSULIN REGULAR(HUMULIN R)HUM 100 UNIT/ML VIAL SQ PRN (21:38)
--- NOTE | 2019-04-30 21:42 | NUR ---
RN NOTES: BLOOD SUGAR-189, INSULIN GIVEN PER SCALE AFTER HE EAT HALF OF PUDDING,WILL CONTINUE TO MONITOR FOR SIGN OF HYPER/HYPOGLYCEMIA.
--- NOTE | 2019-05-01 01:36 | NUR ---
RN NOTES: CLEAN AND CHANGE AT AROUND 2300, AFTER THAT HE WAS ABLE TO REST AND SLEEP AT SHORT INTERVALS, KEPT ON CLOSE WATCH, OFFERED ORAL FLUIDS.
--- NOTE | 2019-05-01 06:21 | NUR ---
RN NOTES: ASLEEP IN THE NIGHT, BLOOD SUGAR CHECKED-195 TO GIVE INSULIN PER SCALE IF PATIENT EAT OR DRINK HIS GLUCERNA. WILL CONTINUE TO MONITOR.ENDORSED FOR CONTINUITY OF CARE.
[2019-05-01 07:20] LABS: CALCIUM, SERUM 8.4 mg/dL (8.5-10.1); CREATININE 0.8 mg/dL (0.6-1.3); PHOSPHORUS 1.9 mg/dL (2.5-4.9); POTASSIUM 3.8 mmol/L (3.5-5.1)
--- NOTE | 2019-05-01 07:20 | NUR ---
RN NOTES: PASS BM, FORMED STOOL, CLEAN AND CHANGE, KEPT ON CLOSE WATCH, ENDORSED FOR CONTINUITY OF CARE.
--- NOTE | 2019-05-01 07:31 | NUR ---
MS RN OPENING NOTES RECEIVED PT IN BED, ASLEEP EASILY AROUSED. A/O X1. PT TOLERATING RA, WITH NO ACUTE RESPIRATORY DISTRESS NOTED. PT DENIES ANY PAIN OR DISCOMFORT AT THIS TIME. PT ALSO DENIES ANY CONCERNS OR QUESTIONS AT THE MOMENT. PIV TO LFA G22, FLUSHED WITH NS, INTACT AND OPERATIONAL. FC IN PLACE WITH CLEAR, YELLOW URINE IN THE BAG. PT KEPT COMFORTABLE. CALL LIGHT KEPT WITHIN REACH. PT'S BED IN LOWEST, LOCKED POSITION WITH SR X3. WILL CONTINUE PLAN OF CARE.
[2019-05-01] MEDS: INSULIN REGULAR, HUMAN 100 UNIT/ML 3 ML VIAL SQ PRN ×3 (07:50→16:49)
[2019-05-01] MEDS: BLOOD SUGAR DIAGNOSTIC 1 EACH STRIP VI SCH ×4 (07:50→21:18)
[2019-05-01 08:00] VITALS: BP 148/77
[2019-05-01] MEDS: GLUCERNA SHAKE 237 ML CAN PO SCH ×3 (08:05→17:10)
[2019-05-01] MEDS: CALCIUM CARB 600MG /VIT D 1 EACH TABLET PO SCH ×2 (08:29→17:00)
[2019-05-01] MEDS: PANTOPRAZOLE 40 MG VIAL IV SCH (08:29)
[2019-05-01] MEDS: ENOXAPARIN SODIUM 40 MG/0.4 ML DISP.SYRIN SQ SCH (08:30)
[2019-05-01] MEDS: HYDROGEL DRESSING 90 GM TUBE TP SCH (08:31)
[2019-05-01] MEDS: Z GUARD REMEDY 2 OZ OINT TP SCH ×2 (08:31→21:18)
[2019-05-01] MEDS: LINAGLIPTIN 5 MG TABLET PO SCH (08:38)
[2019-05-01] MEDS: ASPIRIN 81 MG TAB.CHEW PO SCH (08:39)
[2019-05-01] MEDS: DOCUSATE SODIUM 100 MG CAPSULE PO SCH ×2 (08:39→17:00)
[2019-05-01] MEDS: QUETIAPINE FUMARATE 25 MG TABLET PO SCH ×2 (08:44→17:00)
[2019-05-01] MEDS: VALPROIC ACID 250 MG/5 ML UDC PO SCH ×3 (08:44→17:00)
[2019-05-01] MEDS: IV 1/2NS 1000 ML 1,000 ML IV PRN ×2 (09:48→22:08)
--- NOTE | 2019-05-01 10:51 | NUR ---
MS RN NOTES NGT JUST PLACED BY CN/LASHANDA WHILE PT PLACED ON LEFT HAND/WRIST RESTRAINT. MD MADE AWARE. PLACED STAT CXRAY WELL TO CHECK NGT PLACEMENT.
[2019-05-01] MEDS ORDERED: K PHOS NEUTRAL 250 MG TABLET PO ONE (11:30)
--- NOTE | 2019-05-01 11:30 | NUR ---
MS RN NOTES FOUND PT'S NGT ON THE FLOOR. PT WAS STILL ON SOFT WRIST RESTRAINTS. CN/LASHANDA/KAY MADE AWARE. AND FIELD SERVICE COORDINATOR/ALICE IN THE UNIT MADE AWARE WELL.
--- NOTE | 2019-05-01 12:15 | NUR ---
MS RN NOTES JUST PLACED NGT, SECOND ATTEMPT. IMAGER/ALICE IN THE UNIT MADE AWARE.
--- NOTE | 2019-05-01 12:31 | NUR ---
MS RN NOTES PT JUST PULLED OUT NGT AGAIN. RECORD LIBRARIAN/ALICE IN THE UNIT MADE AWARE. ALICE TO NOTIFY FAMILY AND DISCUSSED GTUBE PLACEMENT.
[2019-05-01 16:00] VITALS: BP 158/93
--- NOTE | 2019-05-01 18:52 | NUR ---
MS RN CLOSING NOTES PT IN BED, ASLEEP EASILY AROUSED. A/O X1. PT TOLERATING RA, WITH NO ACUTE RESPIRATORY DISTRESS NOTED. PT DENIES ANY PAIN OR DISCOMFORT AT THIS TIME.PIV TO LFA G22, FLUSHED WITH NS, INTACT AND OPERATIONAL. FC IN PLACE WITH CLEAR, YELLOW URINE IN THE BAG. PT KEPT COMFORTABLE. ALL NEEDS AND CARE ATTENDED. CALL LIGHT KEPT WITHIN REACH. PT'S BED IN LOWEST, LOCKED POSITION WITH SR X3. WILL ENDORSE TO INCOMING NIGHT NURSE FOR EDA.
[2019-05-01 20:00] VITALS: BP 160/91
--- NOTE | 2019-05-01 20:00 | NUR ---
RN NOTES PATIENT ALERT AND AWAKE, CONFUSED, STABLE ON ROOM AIR, NON VERBAL, NOT IN APPARENT PAIN, WITH RESTLESSNESS, RIGHT SIDED WEAKNESS, LEFT ARM WITH SOFT WRIST RESTRAINTS, PULLING IV LINES, TOSSING PILLOWS, ON NATALIA MATTRESS, LOERA CATHETER DRAINING WELL WITH CLEAR AND YELLOW URINE, REPOSITIONED FOR COMFORT, KEPT SAFE, WILL CONTINUE TO MONITOR.
[2019-05-01 20:18] VITALS: BP 160/91
[2019-05-01] MEDS: *INSULIN REGULAR(HUMULIN R)HUM 100 UNIT/ML VIAL SQ PRN (21:29)
--- NOTE | 2019-05-02 06:30 | NUR ---
RN NOTES PATIENT CONFUSED, STABLE ON ROOM AIR, NOT IN APPARENT PAIN, NO FACIAL GRIMACING, RESTLESS AT TIMES, TRYING TO GET OUT OF BED, RIGHT SIDED WEAKNESS, LEFT WRIST SOFT RESTRAINTS, FOR RENEWAL TODAY, NO SKIN BREAKDOWN TO LEFT ARM, PERIPHERAL LINE LEAKING, PT HARD STICK, WILL NEED MIDLINE FOR IVF, ENDORSED TO AM SHIFT TO FOLLOW UP, LOERA CATHETER DRAINING WELL, WOUND CARE PERFORMED, COCCYX AND BUTTOCK WITH HYDROGEL AND MEPILEX, PT WILL NEED PEG TUBE, PT NOT EATING AND HAS DYSPHAGIA
[2019-05-02] MEDS: *INSULIN REGULAR(HUMULIN R)HUM 100 UNIT/ML VIAL SQ PRN ×2 (06:58→12:12)
--- NOTE | 2019-05-02 07:25 | NUR ---
MS RN OPENING NOTES RECEIVED PT IN BED, ASLEEP EASILY AROUSED. A/O X1. PT TOLERATING RA, WITH NO ACUTE RESPIRATORY DISTRESS NOTED. PT DENIES ANY PAIN OR DISCOMFORT AT THIS TIME. PT ALSO DENIES ANY CONCERNS OR QUESTIONS AT THE MOMENT. PIV GOT PULLED OUT PER NIGHT NURSE AND REQUESTED MIDLINE, AWAITING FOR BATH DESIGN SALES CONSULTANT AND NURSE TO PLACE IT. FC IN PLACE WITH CLEAR, YELLOW URINE IN THE BAG. PT KEPT COMFORTABLE. CALL LIGHT KEPT WITHIN REACH. PT'S BED IN LOWEST, LOCKED POSITION WITH SR X3. WILL CONTINUE PLAN OF CARE.
[2019-05-02] MEDS: BLOOD SUGAR DIAGNOSTIC 1 EACH STRIP VI SCH ×4 (07:38→22:21)
[2019-05-02 08:00] VITALS: BP 144/74
[2019-05-02] MEDS: GLUCERNA SHAKE 237 ML CAN PO SCH ×3 (08:10→17:00)
[2019-05-02] MEDS: PANTOPRAZOLE 40 MG VIAL IV SCH ×2 (08:18→09:00)
[2019-05-02] MEDS: ENOXAPARIN SODIUM 40 MG/0.4 ML DISP.SYRIN SQ SCH (08:19)
[2019-05-02] MEDS: QUETIAPINE FUMARATE 25 MG TABLET PO SCH ×2 (09:00→17:00)
[2019-05-02] MEDS: CALCIUM CARB 600MG /VIT D 1 EACH TABLET PO SCH ×2 (09:00→17:00)
[2019-05-02] MEDS: LINAGLIPTIN 5 MG TABLET PO SCH (09:00)
[2019-05-02] MEDS: DOCUSATE SODIUM 100 MG CAPSULE PO SCH ×2 (09:00→17:00)
[2019-05-02] MEDS: VALPROIC ACID 250 MG/5 ML UDC PO SCH ×3 (09:00→17:00)
[2019-05-02] MEDS: ASPIRIN 81 MG TAB.CHEW PO SCH (09:00)
--- NOTE | 2019-05-02 09:09 | NUR ---
MS RN NOTES NOTIFIED HOSPITALIST/SA REGARDING MULTIPLE ATTEMPTS OF IV WITH NO SUCCESS. PT NOT EATING AND HAS IV HYDRATION. ORDER PLACED. CN/LASHANDA AWARE AND NOTIFIED NSG SUP/. WILL CONTINUE TO MONITOR PT.
[2019-05-02] MEDS: HYDROGEL DRESSING 90 GM TUBE TP SCH (09:12)
[2019-05-02] MEDS: Z GUARD REMEDY 2 OZ OINT TP SCH ×2 (09:12→21:27)
--- NOTE | 2019-05-02 09:24 | NUR ---
MS RN NOTES PT'S PROTONIX IV NOT ADMINISTERED. PT'S PIV NOT PRESENT UP TO THIS TIME. AWAITING FOR MIDLINE PLACEMENT AND MD/SA AWARE.
[2019-05-02] MEDS ORDERED: K PHOS NEUTRAL 250 MG TABLET PO ONE (10:00)
--- NOTE | 2019-05-02 11:50 | NUR ---
MS RN NOTES MIDLINE STARTED TO BRANDYN WITH G18, FLUSHED WITH, INTACT AND OPERATIONAL. RESUMED IV HYDRATION. WILL CONTINUE TO MONITOR.
[2019-05-02 16:00] VITALS: BP 143/89
[2019-05-02] MEDS: IV 1/2NS 1000 ML 1,000 ML IV PRN (17:22)
--- NOTE | 2019-05-02 18:41 | NUR ---
MS RN CLOSING NOTES PT IN BED, AWAKE, A/O X1. PT TOLERATING RA, WITH NO ACUTE RESPIRATORY DISTRESS NOTED. PT DENIES ANY PAIN OR DISCOMFORT AT THIS TIME. IVF 1/2 NS AT 75ML TO BRANDYN MIDLINE G18, INTACT AND FLUID INFUSING WELL. FC IN PLACE WITH CLEAR, YELLOW URINE IN THE BAG. PT KEPT COMFORTABLE. ALL NEEDS AND CARE ATTENDED. CALL LIGHT KEPT WITHIN REACH. PT'S BED IN LOWEST, LOCKED POSITION WITH SR X3. WILL ENDORSE TOINCOMING NIGHTNURSE FOR EDA.
--- NOTE | 2019-05-02 19:45 | NUR ---
MS RN NOTES RECEIVED PATIENT AWAKE IN BED, ALERT ORIENTED X1, PATIENT TOLERATING RA, WITH NO ACUTE RESPIRATORY DISTRESS NOTED. NO FACIAL GRIMACING NOTED. IVF 1/2 NS AT 75ML TO BRANDYN MIDLINE G18, INTACT AND FLUID INFUSING WELL. FC IN PLACE WITH CLEAR, YELLOW URINE IN THE BAG. KEPT COMFORTABLE.CALL LIGHT KEPT WITHIN REACH. SAFETY MEASURES I PLACE, ASPIRATION PRECAUTION EMPHASIZED.PT'S BED IN LOWEST, LOCKED POSITION WITH SR X3. WILL CONTINUE TO MONITOR ACCORDINGLY.
[2019-05-02 20:00] VITALS: BP 119/81
[2019-05-02 20:48] VITALS: BP 119/81
--- NOTE | 2019-05-02 22:00 | NUR ---
RN NOTES ACCUCHECK DONE BLOOD GLUCOSE 142 MG/DL. HELD INSULIN SLIDING SCALE, NPO FOR EGD WITH PEG PLACEMENT DANE 05/03/19.
--- NOTE | 2019-05-02 22:08 | NUR ---
RN NOTES PATIENT ABLE TO PULLED OUT HIS LEFT UPPER ARM MIDLINE, APPLIED CLEAN DRESSING. INFORMED CHARGE NURSE AND PATIENT RELATIONS SPECIALIST, INFORMED EPIC MD Anamika BUSTOS, OBTAINED ORDER FOR MID LINE RE INSERTION AND AN ORDER FOR RESTRAINTS. NOTED AND CARRIED OUT, PATIENT IS RESTING, NO SIGNS OF ACUTE DISTRESS NOTED AT THIS TIME.
[2019-05-03] VITALS (9 sets, daily range): BP systolic 126–166; BP diastolic 66–93
--- NOTE | 2019-05-03 02:10 | NUR ---
RN NOTES SPOKE TO PICC NURSE TENISHA OVER THE PHONE, WILL INSERT MIDLINE. HE WILL BE HERE IN 30 MINUTES.
--- NOTE | 2019-05-03 03:35 | NUR ---
RN NOTES PATIENT MOVED CLOSE TO NURSING STATION TO ROOM 308-1 FOR CLOSE MONITORING. ALL NEEDS ANTICIPATED, REPOSITIONED FOR COMFORT, SAFETY MEASURES IN PLACE, ASPIRATION PRECAUTION EMPHASIZED, CALL LIGHT WITHIN EASY REACH. WILL MONITOR.
--- NOTE | 2019-05-03 07:18 | NUR ---
RN NOTES ACCUCHECK DONE. BLOOD GLUCOSE IS 155 MG/DL. HELD INSULIN, PATIENT IS NPO SINCE LAST NIGHT 1929 ( 7:30pm ) AFTER DINNER.
--- NOTE | 2019-05-03 07:20 | NUR ---
MS RN NOTES PATIENT AWAKE IN BED, ALERT ORIENTED X1, PATIENT TOLERATING RA, ABLE TO REST AND SLEPT AT INTERVALS, LEFT SOFT WRIST RESTRAINTS INPLACED, MONITORED FOR ADEQUATE CIRCULATION, WITH NO ACUTE RESPIRATORY DISTRESS NOTED. NO FACIAL GRIMACING NOTED. IVF 1/2 NS AT 75ML TO BRANDYN MIDLINE G18, INTACT AND FLUID INFUSING WELL. FC IN PLACE WITH CLEAR, YELLOW URINE IN THE BAG. KEPT COMFORTABLE.CALL LIGHT KEPT WITHIN REACH. SAFETY MEASURES I PLACE, ASPIRATION PRECAUTION EMPHASIZED.PT'S BED IN LOWEST, LOCKED POSITION WITH SR X3. ENDORSED TO AM NURSE, FOR EGD WITH PEG REPLACEMENT TODAY.
--- NOTE | 2019-05-03 07:24 | NUR ---
RN OPENING NOTE PT WAS RECEIVED IN BED AT LOWEST AND LOCKED POSITION WITH SIDE RAILS UP X2, A/O X1 CONFUSED, BREATHING EVEN AND UNLABORED WITH NO S/S OF ANY DISTRESS OR PAIN, LOERA IN PLACE AND DRAINING, IV IS PATENT AND INTACT, NOTED TO HAVE SACRAL WOUND, PLAN FOR EGD/PEG INSERTION TODAY CURRENTLY NPO, SAFETY PRECAUTIONS IN PLACE, CALL LIGHT IN REACH, WILL MONITOR ACCORDINGLY
[2019-05-03] MEDS: BLOOD SUGAR DIAGNOSTIC 1 EACH STRIP VI SCH ×4 (07:29→21:44)
[2019-05-03] MEDS: INSULIN REGULAR, HUMAN 100 UNIT/ML 3 ML VIAL SQ PRN (07:35)
--- NOTE | 2019-05-03 07:54 | NUR ---
RN NOTE CALL RECEIVED FROM JAYJAY NELSON 05/03/19 AT 0754. INFORMED AND MADE AWARE OF PLAN FOR PT TO RECEIVE PEG PLACEMENT. SHE AGREED WITH PLAN WHICH WAS VERIFIED BY RN FRANCE. MICAH AT SURGERY DEPARTMENT INFORMED AND MADE AWARE. PT WILL BE TAKEN FOR PROCEDURE AT SCHEDULED TIME.
[2019-05-03 07:56] LABS: BASOPHILS % (AUTO) 0.4 % (0.0-2.0); EOSINOPHILS % (AUTO) 3.3 % (0.0-6.0); HEMATOCRIT 38 % (39-51); HEMOGLOBIN 12.4 g/dL (13.5-17.5); LYMPHOCYTES # (AUTO) 1.3 /CMM (0.8-4.8); MEAN CORPUSCULAR HGB CONC 32 g/dl (31.0-36.0); MEAN CORPUSCULAR VOLUME 89 fL (80-96); MONOCYTES # (AUTO) 0.4 /CMM (0.1-1.30); MONOCYTES % (AUTO) 6.1 % (2.0-12.0); NEUTROPHILS # (AUTO) 4.9 /CMM (1.8-8.9); NEUTROPHILS % (AUTO) 71.2 % (43.0-81.0); PLATELET COUNT (AUTO) 245 /CMM (150-450); RED BLOOD CELL COUNT(AUTO) 4.29 MIL/uL (4.5-6.0); WHITE BLOOD COUNT (AUTO) 6.9 K/uL (4.3-11.0)
[2019-05-03] MEDS: GLUCERNA SHAKE 237 ML CAN PO SCH ×3 (08:00→16:15)
[2019-05-03 08:10] LABS: ALBUMIN 2.1 g/dL (3.4-5.0); BILIRUBIN,TOTAL 0.4 mg/dL (0.2-1.0); CALCIUM, SERUM 8.9 mg/dL (8.5-10.1); CREATININE 0.9 mg/dL (0.6-1.3); POTASSIUM 3.5 mmol/L (3.5-5.1); TOTAL PROTEIN, SERUM 6.8 g/dL (6.4-8.2)
[2019-05-03] MEDS: ASPIRIN 81 MG TAB.CHEW PO SCH (08:18)
[2019-05-03] MEDS: CALCIUM CARB 600MG /VIT D 1 EACH TABLET PO SCH ×2 (08:18→16:15)
[2019-05-03] MEDS: LINAGLIPTIN 5 MG TABLET PO SCH (08:19)
[2019-05-03] MEDS: DOCUSATE SODIUM 100 MG CAPSULE PO SCH ×2 (08:19→16:15)
[2019-05-03] MEDS: QUETIAPINE FUMARATE 25 MG TABLET PO SCH ×2 (08:19→16:15)
[2019-05-03] MEDS: VALPROIC ACID 250 MG/5 ML UDC PO SCH ×3 (08:19→16:15)
[2019-05-03] MEDS: ENOXAPARIN SODIUM 40 MG/0.4 ML DISP.SYRIN SQ SCH (08:54)
[2019-05-03] MEDS: HYDROGEL DRESSING 90 GM TUBE TP SCH (08:54)
[2019-05-03] MEDS: PANTOPRAZOLE 40 MG VIAL IV SCH (08:54)
[2019-05-03] MEDS: Z GUARD REMEDY 2 OZ OINT TP SCH ×2 (08:55→20:51)
--- NOTE | 2019-05-03 08:55 | NUR ---
RN NOTE LOVENOX HELD DUE PT TAKEN DOWN FOR SURGICAL PROCEDURE AT THIS TIME
--- NOTE | 2019-05-03 11:00 | NUR ---
RN NOTE PT BROUGHT BACK FROM OR AT THIS TIME, VS WNL NOTED TO BE BP 139/79, PULSE 93, TEMP 98.1, RR 18, O SAT AT 99% ON RA, NO S/S OF ANY DISTRESS OR PAIN, MIDLINE IS PATENT AND INTACT, PER SURGERY PEG GOOD TO BE USED AFTER 12 NOON, RESUME ALL ORDERS, WILL CONTINUE TO MONITOR
[2019-05-03] MEDS ORDERED: GLUCERNA 1.2 1,000 ML BOTTLE NG PRN (11:30)
--- NOTE | 2019-05-03 11:50 | NUR ---
RN NOTE GLUCERNA SHAKE NOT GIVEN DUE TO THE PT STARTING ON TUBE FEEDING
[2019-05-03] MEDS: *INSULIN REGULAR(HUMULIN R)HUM 100 UNIT/ML VIAL SQ PRN ×3 (12:35→21:47)
[2019-05-03] MEDS: GLUCERNA 1.2 1,000 ML BOTTLE NG PRN (12:36)
[2019-05-03] MEDS ORDERED: K PHOS NEUTRAL 250 MG TABLET PO ONE (15:30)
--- NOTE | 2019-05-03 18:25 | NUR ---
RN CLOSING NOTE PT IN BED AT LOWEST AND LOCKED POSITION WITH SIDE RAILS UP X2, A/O X1, BREATHING EVEN AND UNLABORED WITH NO S/S OF ANY DISTRESS OR PAIN, LOERA IN PLACE AND DRAINING WITH 250 ML OUT DURING SHIFT, IV IS PATENT AND INTACT, WOUND TX RENDERED, PEG PLACED AND NOTED TO HAVE 25 ML RESIDUAL WITH TUBE FEEDING RUNNING, SAFETY PRECAUTIONS IN PLACE, ALL NEEDS ATTENDED TO THROUGHOUT SHIFT, WILL ENDORSE TO NIGHT RN FOR EDA.
--- NOTE | 2019-05-03 19:30 | NUR ---
MS RN OPENING NOTES RECEIVED PATIENT FROM MORNING SHIFT, ALERT AND ORIENTED X 1. AFEBRILE WITH NO S/S OF DISTRESS OBSERVED. BREATHING REGULAR AND UNLABORED ON ROOM AIR. LEFT UPPER ARM MIDLINE G18 INTACT AND PATENT, INFUSING WELL WITH NO BLEEDING OR S/S OF INFECTION/INFILTRATION NOTED. LEFT WRIST SOFT RESTRAINT ON, SKIN ASSESSMENT AND CIRCULATION CHECKED. NO S/S OF PAIN/DISCOMFORT REPORTED OF THE TIME. S/P PEG TUBE PLACEMENT, INTACT AND PATENT WITH NO RESIDUAL ASPIRATED. STOMA CLEAN AND DRY WITH NO ACTIVE BLEEDING SEEN. LOERA CATH INTACT AND PATENT, DRAINING CLEAR YELLOW URINE WITH MODERATE AMOUNT SEEN ON URINARY BAG. REPOSITIONED ON HIS LEFT LATERAL SIDE. BED LOW AND LOCKED ON SEMI FOWLERS POSITION. CALL LIGHT IN REACH. WILL CONTINUE TO MONITOR.
--- NOTE | 2019-05-03 21:45 | NUR ---
MS RN NOTES BS 165mg/dl NOTED, 3UNITS REGULAR INSULIN GIVEN SQ. WILL MONITOR FOR S/S OF HYPO/HYPERGLYCEMIA.
--- NOTE | 2019-05-03 22:00 | NUR ---
MS RN NOTES INCREASED GT FEEDING RATE TO 50CC/HR AT 2100, NO RESIDUAL ASPIRATED. NO EPISODE OF NAUSEA/VOMITING SEEN. WILL CONTINUE TO MONITOR.
[2019-05-04] MEDS: IV 1/2NS 1000 ML 1,000 ML IV PRN (00:15)
[2019-05-04] MEDS: BLOOD SUGAR DIAGNOSTIC 1 EACH STRIP VI SCH ×2 (06:38→11:53)
[2019-05-04] MEDS: *INSULIN REGULAR(HUMULIN R)HUM 100 UNIT/ML VIAL SQ PRN (06:40)
[2019-05-04 06:41] LABS: CALCIUM, SERUM 8.2 mg/dL (8.5-10.1); CREATININE 0.8 mg/dL (0.6-1.3); PHOSPHORUS 2.2 mg/dL (2.5-4.9)
[2019-05-04 06:42] LABS: BASOPHILS % (AUTO) 0.5 % (0.0-2.0); EOSINOPHILS % (AUTO) 2.5 % (0.0-6.0); HEMATOCRIT 33 % (39-51); LYMPHOCYTES # (AUTO) 1.3 /CMM (0.8-4.8); LYMPHOCYTES % (AUTO) 16.5 % (20.0-44.0); MEAN CORPUSCULAR HGB CONC 33 g/dl (31.0-36.0); MEAN CORPUSCULAR VOLUME 88 fL (80-96); MONOCYTES # (AUTO) 0.7 /CMM (0.1-1.30); MONOCYTES % (AUTO) 9.3 % (2.0-12.0); NEUTROPHILS # (AUTO) 5.4 /CMM (1.8-8.9); NEUTROPHILS % (AUTO) 71.2 % (43.0-81.0); PLATELET COUNT (AUTO) 225 /CMM (150-450); RED BLOOD CELL COUNT(AUTO) 3.75 MIL/uL (4.5-6.0); WHITE BLOOD COUNT (AUTO) 7.6 K/uL (4.3-11.0)
--- NOTE | 2019-05-04 06:45 | NUR ---
MS RN CLOSING NOTES PATIENT IN BED, ALERT AND ORIENTED X 1 WITH NO S/S OF DISTRESS OBSERVED. BREATHING REGULAR AND UNLABORED ON ROOM AIR. LEFT UPPER ARM MIDLINE G18 INTACT AND PATENT, INFUSING WELL WITH NO BLEEDING OR S/S OF INFECTION/INFILTRATION NOTED. MAINTAINED ON ASPIRATION PRECAUTION, HEAD OF THE BED ELEVATED. PEG TUBE INTACT AND PATENT AT 55CC/HR, TOLERATING WELL WITH NO EPISODE OF NAUSEA/VOMITING, NO RESIDUAL ASPIRATED WITHIN THE SHIFT. WOUND TREATMENTS PROVIDED. LOERA CATH INTACT AND PATENT DRAINING CLEAR YELLOW URINE WITH 250CC OUTPUT. NO S/S OF PAIN/DISCOMFORT NOTED WITHIN THE SHIFT. BED LOW AND LOCKED ON SEMI FOWLERS POSITION. CALL LIGHT IN REACH. WILL ENDORSE TO MORNING SHIFT FOR EDA.
[2019-05-04 08:00] VITALS: BP 105/50
--- NOTE | 2019-05-04 08:00 | NUR ---
RN NOTES RECEIVED PATIENT IN THE BED A/O X1, CONFUSED. PATIENT HAS A NO ACUTE RESPIRATORY DISTRESS, UNLABORED BREATHING. PATIENT TOTAL CARE, WEAKNESS ON RIGHT UPPER, AND LOWER SIDE, G-TUBE FEEDING RESIDUAL 100 ML, AND PLACEMENT CHECKED, INFUSING GLUCERNA 55 ML/HR AT THIS TIME, KEEP HOB ELEVATED FOR ASPIRATION PRECAUTION, 1/2 NS INFUSING AT LEFT UPPER ARM MIDLINE INTACT, V/S TAKEN WNL. LOERA CATHETER DARNING LIGHT YELLOW OUTPUT. ADMINISTERED SCHEDULED MEDICATION VIA G-TUNE. NEEDS ATTENDED AND ANTICIPATED, PATIENT ON AIR MATTRESS, DRESSING CHANGED. CALL LIGHT WITHIN TO REACH. SAFETY PRECAUTION MAINTAINED ALL THE TIME.
[2019-05-04] MEDS: VALPROIC ACID 250 MG/5 ML UDC PO SCH ×2 (10:16→11:53)
[2019-05-04] MEDS: PANTOPRAZOLE 40 MG VIAL IV SCH (10:17)
[2019-05-04] MEDS: LINAGLIPTIN 5 MG TABLET PO SCH (10:17)
[2019-05-04] MEDS: ASPIRIN 81 MG TAB.CHEW PO SCH (10:17)
[2019-05-04] MEDS: DOCUSATE SODIUM 100 MG CAPSULE PO SCH (10:17)
[2019-05-04] MEDS: CALCIUM CARB 600MG /VIT D 1 EACH TABLET PO SCH (10:17)
[2019-05-04] MEDS: QUETIAPINE FUMARATE 25 MG TABLET PO SCH (10:17)
[2019-05-04] MEDS: ENOXAPARIN SODIUM 40 MG/0.4 ML DISP.SYRIN SQ SCH (10:20)
[2019-05-04] MEDS: GLUCERNA 1.2 1,000 ML BOTTLE NG PRN (10:23)
[2019-05-04] MEDS: Z GUARD REMEDY 2 OZ OINT TP SCH (10:25)
[2019-05-04] MEDS: HYDROGEL DRESSING 90 GM TUBE TP SCH (10:25)
--- NOTE | 2019-05-04 10:44 | NUR ---
rn notes administered tylenol 650 mg via G-tube for generalized pain 5/10 per pain scale per patient request, continued monitoring.
[2019-05-04] MEDS: POTASSIUM CHLORIDE 20 MEQ POWDER PACKET GT SCH ×3 (11:53→12:45)
[2019-05-04] MEDS: INSULIN REGULAR, HUMAN 100 UNIT/ML 3 ML VIAL SQ PRN (12:39)
--- NOTE | 2019-05-04 12:55 | NUR ---
RN NOTES BS-221 MG/DL COVERAGE GIVEN, ALSO ADMINISTERED SCHEDULED MEDICATION. PATIENT WILL D/C BACK TO THE SNF PER HOSPITALIST ROHITH LIN ORDER. DAUGHTER NEXT TO THE BED , CONTINUED MONITORING.
[2019-05-04] MEDS ORDERED: POTASSIUM PHOSPHATE MM 7.5 MMOL in IV D5W 100 ML IV SCH (13:00)
[2019-05-04] MEDS ORDERED: NEUTRA PHOS 1 POWD.PACKET GT ONE ×2 (13:00→14:30)
--- NOTE | 2019-05-04 14:57 | NUR ---
RN NOTES PATIENT WILL D/C BACK T SNF PER HOSPITALIST ORDER ROHITH JENNINGS.
--- NOTE | 2019-05-04 16:24 | NUR ---
MANGANESE WHEELER NOTES PATIENT DISCHARGE AT THIS TIME GOING BACK TO THE SNF. PATIENT A/O X1, CONFUSED, NO ACUTE RESPIRATORY DISTRESS, BREATHING UNLABORED. V/S STABLE, NO COMPLANING OF PAIN AT THIS TIME, STABLE. MED RECONCILIATION AND DISCHARGE ORDER REVIEWED AND EXPLAINED TO PATIENT. REPORT GIVEN SNF RN DALI. RN VERBALIZED UNDERSTANDING, PATIENT HAS NO BELONGING, UNABLE TO SIGN PAPERWORK CO SIGN CO WORKER LUIS Beasley RN. PICTURE TAKEN. GT INTACT. PATIENT WILL FOLLOW SNF RESTAURANT INSPECTOR. DAUGHTER NAME JOSEFINA PHONE # [phone] AWARE OF. PATIENT LOADER OPERATOR BY AMBULANCE.
== END 2019-05-04 16:40 | DRG 853 ==
LOC: ER 10:46 → MED 12:45
PROVIDERS: ADMIT Registered Nurse; ATTEND Nurse Practitioner Acute Care
PROC: 0JB70ZZ Excision of Back Subcutaneous Tissue and Fascia, Open Approach (ICD-10-PCS; principal; 2019-04-26)
PROC: 0JB90ZZ Excision of Buttock Subcutaneous Tissue and Fascia, Open Approach (ICD-10-PCS; 2019-04-26)
PROC: 05H633Z Insertion of Infusion Device into Left Subclavian Vein, Percutaneous Approach (ICD-10-PCS; 2019-05-02)
PROC: 0JB70ZZ Excision of Back Subcutaneous Tissue and Fascia, Open Approach (ICD-10-PCS; 2019-05-03)
PROC: 0JB90ZZ Excision of Buttock Subcutaneous Tissue and Fascia, Open Approach (ICD-10-PCS; 2019-05-03)
PROC: 05H633Z Insertion of Infusion Device into Left Subclavian Vein, Percutaneous Approach (ICD-10-PCS; 2019-05-03)
PROC: 0DB98ZX Excision of Duodenum, Via Natural or Artificial Opening Endoscopic, Diagnostic (ICD-10-PCS; 2019-05-03)
PROC: 0DH63UZ Insertion of Feeding Device into Stomach, Percutaneous Approach (ICD-10-PCS; 2019-05-03)
DX: A41.9 Sepsis, unspecified organism (principal); L89.153 Pressure ulcer of sacral region, stage 3; L89.313 Pressure ulcer of right buttock, stage 3; R65.21 Severe sepsis with septic shock; G92 Toxic encephalopathy; E43 Unspecified severe protein-calorie malnutrition; J69.0 Pneumonitis due to inhalation of food and vomit; N17.0 Acute kidney failure with tubular necrosis; N39.0 Urinary tract infection, site not specified; E87.2 Acidosis; E87.0 Hyperosmolality and hypernatremia; I69.351 Hemiplegia and hemiparesis following cerebral infarction affecting right dominant side; L97.829 Non-pressure chronic ulcer of other part of left lower leg with unspecified severity; L97.329 Non-pressure chronic ulcer of left ankle with unspecified severity; E86.0 Dehydration; E11.65 Type 2 diabetes mellitus with hyperglycemia; E87.6 Hypokalemia; G40.909 Epilepsy, unspecified, not intractable, without status epilepticus; I10 Essential (primary) hypertension; G30.9 Alzheimer's disease, unspecified; F02.80 Dementia in other diseases classified elsewhere, unspecified severity, without behavioral disturbance, psychotic disturbance, mood disturbance, and anxiety; Z87.440 Personal history of urinary (tract) infections; Z79.82 Long term (current) use of aspirin; R62.7 Adult failure to thrive; R13.10 Dysphagia, unspecified; E83.39 Other disorders of phosphorus metabolism; E83.51 Hypocalcemia; E78.5 Hyperlipidemia, unspecified; F20.9 Schizophrenia, unspecified; Z79.84 Long term (current) use of oral hypoglycemic drugs; I35.0 Nonrheumatic aortic (valve) stenosis; I25.2 Old myocardial infarction; E87.8 Other disorders of electrolyte and fluid balance, not elsewhere classified; Z79.4 Long term (current) use of insulin; L98.8 Other specified disorders of the skin and subcutaneous tissue; S00.31XA Abrasion of nose, initial encounter; M20.42 Other hammer toe(s) (acquired), left foot; M20.41 Other hammer toe(s) (acquired), right foot; M62.50 Muscle wasting and atrophy, not elsewhere classified, unspecified site; E11.51 Type 2 diabetes mellitus with diabetic peripheral angiopathy without gangrene; I70.248 Atherosclerosis of native arteries of left leg with ulceration of other part of lower leg; I70.243 Atherosclerosis of native arteries of left leg with ulceration of ankle; K80.20 Calculus of gallbladder without cholecystitis without obstruction; E83.42 Hypomagnesemia; K29.80 Duodenitis without bleeding
CPT/HCPCS: 36415; 43246; 71045-TC; 74181-TC; 76700-TC; 78226; 80048-TC; 80053-TC; 80061-TC; 80076-TC; 80202-TC; 81000-TC; 82550-TC; 82570-TC; 82962-TC; 83605-TC; 83735-TC; 84100-TC; 84155-TC; 84300-TC; 84443-TC; 84484-TC; 85025-TC; 85610-TC; 85730-TC; 87040-TC; 87081-TC; 87086-TC; 88305-TC; 92526; 92611-TC; A4216; A6248; A6253; A6403; A9537; C9113; G0378; J0690; J0696; J1450; J1650; J1815; J2060; J2543; J2704; J3370; J3475; J3480; J3490; J7030; J7060; J7070

== ENCOUNTER 2019-05-09 07:30 | Emergency (ER) | payer MEDICARE, MEDICAID ==
[~2019-05-09] VITALS: Ht 167.6 cm; Wt 72.6 kg
[~2019-05-09 07:30] MED LIST changes: +ACET-73 PO; +ACET-868 PO; +ASPI-605 PO; -DIVA250T4 PO; +DOCU-141 PO; -DONE10TA44 PO; +INSU100I4 SQ; -LACT1CAP72 PO; -MERO500V3 IV; -METF-441 PO; -SIMV-46 PO
--- NOTE | 2019-05-09 07:38 | NUR ---
MARY, FROM [facility], CAME IN FOR GT REPLACEMENT, PT ACCIDENTALLY PULLED OUT THIS MORNING. ALISA 16. TO ER BED 11, HOOKED TO MONITOR, KEPT WARM
--- NOTE | 2019-05-09 07:41 | NUR ---
DR WONG AT BEDSIDE
[2019-05-09] MEDS ORDERED: DIATR MEGLU/DIATRIZOATE SODIUM 30 ML BOTTLE (GASTROGRAPHIN) PO ONE (08:00)
--- NOTE | 2019-05-09 08:40 | NUR ---
Charge nurse to [facility] of [facility], aware patient is going back to the facility.
--- NOTE | 2019-05-09 08:45 | NUR ---
PLACEMENT CONFIRMED VIA XRAY ABDOMEN KUB. PATIENT OK TO GO BACK.
--- NOTE | 2019-05-09 08:46 | NUR ---
Patient picked up by [facility] in stable condition. Written and verbal after care instructions given. EMT verbalizes understanding of instruction.
[2019-05-09 08:58] VITALS: BP 154/93
== END 2019-05-09 08:59 ==
LOC: ER 07:30
DX: K94.23 Gastrostomy malfunction (principal); G40.909 Epilepsy, unspecified, not intractable, without status epilepticus; I10 Essential (primary) hypertension; E11.9 Type 2 diabetes mellitus without complications; E78.5 Hyperlipidemia, unspecified; E87.6 Hypokalemia; Z79.899 Other long term (current) drug therapy; Z79.82 Long term (current) use of aspirin; Z79.4 Long term (current) use of insulin
CPT/HCPCS: 43762; 74018; 99284; Q9963

== ENCOUNTER 2019-05-10 22:42 | Emergency (ER) | payer MEDICARE, MEDICAID ==
[~2019-05-10] VITALS: Ht 167.6 cm; Wt 68.0 kg
--- NOTE | 2019-05-10 22:55 | NUR ---
PT MARY FROM [facility] FOR GTUBE REPLACEMENT. CAME IN WITH A LOERA IN PLCE OF AG TUBE, TO KEEP G TUBE OPENING PATENT. PT 95% ON ROOM AIR. ORIGIOONAL G TUBE 16F BROUGHT IN WITH PT. PY HAS LOERA ON GRAVITY. AAOX3. PT RESPONDING TO QUESTIONS. PLACED ON MONITOR AND PULSE OX. AT BEDSIDE.
--- NOTE | 2019-05-10 22:55 | NUR ---
Note edie in EDM - 05/10/19 at 2321 by EVICTOR PT MARY FROM [facility] FOR GTUBE REPLACEMENT. CAME IN WITH Ivory LOERA. PT 95% ON ROOM AIR. CAME IN FOR G TUBE REPLACEMENT 16FR. PLACED ON MONITOR AND PULSE OXCate SINGLETON AT BEDSIDE.
--- NOTE | 2019-05-10 22:57 | NUR ---
16F G TUBE INSERTED BY DR ALDRICH AT BEDSIDE.
[2019-05-10] MEDS ORDERED: DIATR MEGLU/DIATRIZOATE SODIUM 30 ML BOTTLE (GASTROGRAPHIN) PO ONE (23:00)
[2019-05-10] MEDS ORDERED: DIATR MEGLU/DIATRIZOATE SODIUM 30 ML BOTTLE (GASTROGRAPHIN) ONE (23:00)
--- NOTE | 2019-05-10 23:03 | NUR ---
GASTROGRAFIN GIVEN AT BEDSIDE
--- NOTE | 2019-05-10 23:06 | NUR ---
XRAY DONE TO CONFIRM G TUBE PLACEMENT
--- NOTE | 2019-05-10 23:29 | NUR ---
[facility] ETA [address] [facility] [id number]
--- NOTE | 2019-05-10 23:59 | NUR ---
Patient is resting comfortably in bed with eyes closed. Easily aroused. VSS
[2019-05-11 01:53] VITALS: BP 135/75
--- NOTE | 2019-05-11 01:55 | NUR ---
REPORT GIVEN TO [facility] EMT. Patient discharged to home in stable condition. Written and verbal after care instructions given. COPY OF XRAY GIVEN TO EWA EMT. VSS
--- NOTE | 2019-05-11 01:59 | NUR ---
CALLED [facility] TO LET THEM KNOW THAT THE PT WAS RETURNING.
== END 2019-05-11 01:55 | disposition home or self-care (01) ==
LOC: ER 22:44
DX: K94.23 Gastrostomy malfunction (principal); G40.909 Epilepsy, unspecified, not intractable, without status epilepticus; I10 Essential (primary) hypertension; E11.9 Type 2 diabetes mellitus without complications; E78.5 Hyperlipidemia, unspecified; Z79.899 Other long term (current) drug therapy; Z79.82 Long term (current) use of aspirin; Z79.84 Long term (current) use of oral hypoglycemic drugs
CPT/HCPCS: 43762; 74018; 99284; Q9963 ×2

== ENCOUNTER 2019-05-12 05:35 | Emergency (ER) | payer MEDICARE, MEDICAID ==
[~2019-05-12] VITALS: Ht 170.2 cm; Wt 68.0 kg
[2019-05-12 05:41] VITALS: BP 114/72
--- NOTE | 2019-05-12 05:44 | NUR ---
G-TUBE REPLACEMENT PERFORMED BY DR. CATES 16FR.
== END 2019-05-12 05:53 | disposition home or self-care (01) ==
LOC: ER 05:37
DX: K94.23 Gastrostomy malfunction (principal); G40.909 Epilepsy, unspecified, not intractable, without status epilepticus; I10 Essential (primary) hypertension; E11.9 Type 2 diabetes mellitus without complications; E78.5 Hyperlipidemia, unspecified; Z79.899 Other long term (current) drug therapy; Z79.82 Long term (current) use of aspirin; Z79.4 Long term (current) use of insulin

== ENCOUNTER 2019-07-22 16:37 | Emergency (ER) | payer MEDICARE, OTHER ==
[~2019-07-22] VITALS: Ht 167.6 cm; Wt 74.8 kg
--- NOTE | 2019-07-22 17:00 | NUR ---
BIB [facility] FOR G-TUBE REPLACEMENT. PATIENT A/OX1, BREATHING EVEN AND UNLABORED, NO SOB NOTED, NEEDS ATTENDED, KEPT COMFORTABLE.
[2019-07-22] MEDS ORDERED: DIATR MEGLU/DIATRIZOATE SODIUM 30 ML BOTTLE (GASTROGRAPHIN) ONE (17:46)
--- NOTE | 2019-07-22 17:49 | NUR ---
DR. MACHADO INSERTED GTUBE FR 12 5CC BALLOON
[2019-07-22] MEDS ORDERED: DIATR MEGLU/DIATRIZOATE SODIUM 30 ML BOTTLE (GASTROGRAPHIN) PO ONE (18:00)
--- NOTE | 2019-07-22 18:46 | NUR ---
CALLED [facility] 2045 TRIP NUMBER [id number]
--- NOTE | 2019-07-22 19:34 | NUR ---
[facility] ARRIVED. REPORT GIVEN TO EMT. DC PAPERWORK SIGNED BY EMT.
--- NOTE | 2019-07-22 19:37 | NUR ---
CALLING REPORT TO [facility].
[2019-07-22 20:10] VITALS: BP 93/58
== END 2019-07-22 20:11 | disposition home or self-care (01) ==
LOC: ER 16:38
DX: K94.23 Gastrostomy malfunction (principal); I10 Essential (primary) hypertension; E78.5 Hyperlipidemia, unspecified; Z79.899 Other long term (current) drug therapy; Z79.82 Long term (current) use of aspirin; Z79.4 Long term (current) use of insulin
CPT/HCPCS: 43762; 74018; 99284; Q9963

== ENCOUNTER 2019-09-04 23:20 | Inpatient (IN) | payer MEDICARE, MEDICAID ==
[~2019-09-04] VITALS: Ht 172.7 cm; Wt 59.9 kg
[2019-09-05] MEDS ORDERED: Z GUARD REMEDY 2 OZ OINT TP PRN (01:00)
[2019-09-05] MEDS ORDERED: DEXTROSE 50%-WATER 50 ML DISP.SYRIN IV PRN (01:00)
[2019-09-05] MEDS ORDERED: MAGNESIUM HYDROXIDE 30 ML UDC PO PRN (01:00)
[2019-09-05] MEDS ORDERED: ONDANSETRON HCL/PF 4 MG/2 ML VIAL IVP PRN (01:00)
[2019-09-05] MEDS ORDERED: ACETAMINOPHEN 325 MG TABLET PO PRN ×2 (01:00)
[2019-09-05] MEDS ORDERED: MAG HYDROX/AL HYDROX/SIMETH 30 ML UDC PO PRN (01:00)
--- NOTE | 2019-09-05 01:10 | NUR ---
PATIENT CAME TO ER BED 2 FROM A [facility]AIL C/O PULLING OUT G-TUBE. PATIENT PULLED OUT G-TUBE AT AROUDN 2100 OF 09/04/2019. PATIENT IS AAOX2. NO SOB. BREATHING EVENLY AND UNLABORED ON ROOM AIR. CONNECTED TO MONITOR.
--- NOTE | 2019-09-05 01:19 | NUR ---
BED ASSIGNMENT 117-2
--- NOTE | 2019-09-05 02:33 | NUR ---
REPORT GIVEN TO ELY SILVA FOR EDA.
[2019-09-05 02:48] VITALS: BP 145/76
--- NOTE | 2019-09-05 02:48 | NUR ---
MS RN ADMITTING NOTES RECEIVED PT FROM ER VIA [facility] IN STABLE CONDITION. RESPIRATIONS EVEN AND UNLABORED WITH NO S/S OF ACUTE DISTRESS OR SOB NOTED. NO S/S OF PAIN AT THIS TIME. PT NOTED WITH LFA 18G PATENT AND INTACT AND SL. PT NOTE WITH FC DRAINING WELL. SAFETY MEASURES IN PLACE WITH BED IN LOWEST LOCKED POSIOIN WITH SIDE RAILS UP X 2. CALL LIGHT WITHIN REACH. WILL CONTINUE TO MONITOR.
[2019-09-05] MEDS: IV D5/0.45 NACL 1,000 ML IV PRN ×2 (03:55→18:29)
[2019-09-05 04:00] VITALS: BP 138/77
--- NOTE | 2019-09-05 07:00 | NUR ---
MS SILVA Notes-Closing Received patient in bed in stable condition. Alert and oriented to self. No signs of distress. Mild redness noted on sacrum, scrotum, gtube site closed. Patient NPO. IV running RFA 75mL HR D5 1/2 NS. Patient is resting in bed comfortably. Bed in lowest and locked position. Call light within reach, will continue to monitor. Addendum: 09/05/19 at 2114 by ANNE FARIAS RN opening note *
--- NOTE | 2019-09-05 07:33 | NUR ---
MS RN NOTES PT IN BED AND AWAKE. RESPIRATIONS EVEN AND UNLABORED WITH NO S/S OF ACUTE DISTRESS OR SOB NOTED THROUGHOUT SHIFT. NO S/S OF PAIN AT THIS TIME. PT NOTED WITH LFA 18G PATENT AND INTACT INFUSING D5 1/2 NS AT 75CC/HR. PT KEPT CLEAN, DRY, AND COMFORTABLE. SAFETY MEASURES IN PLACE WITH BED IN LOWEST LOCKED POSITION WITH SIDE RAILS UP X 2. CALL LIGHT WITHIN REACH. WILL ENDORSE TO ONCOMING NURSE FOR EDA.
[2019-09-05 08:00] VITALS: BP 150/78
[2019-09-05] MEDS: BLOOD SUGAR DIAGNOSTIC 1 EACH STRIP VI SCH ×4 (08:06→21:32)
[2019-09-05] MEDS: QUETIAPINE FUMARATE 25 MG TABLET PO SCH ×2 (08:56→17:00)
[2019-09-05] MEDS: BENAZEPRIL HCL 20 MG TABLET PO SCH ×2 (08:56→17:00)
[2019-09-05] MEDS: VALPROIC ACID 250 MG/5 ML UDC PO SCH ×3 (08:58→17:00)
[2019-09-05] MEDS: METOPROLOL TARTRATE 50 MG TABLET PO SCH ×2 (08:58→17:00)
[2019-09-05] MEDS: ASPIRIN EC 81 MG TABLET.DR PO SCH (08:59)
[2019-09-05] MEDS: DOCUSATE SODIUM 100 MG CAPSULE PO SCH ×2 (08:59→17:00)
[2019-09-05] MEDS: CALCIUM CARB 600MG /VIT D 1 EACH TABLET PO SCH ×2 (08:59→17:00)
[2019-09-05] MEDS ORDERED: ASPIRIN 81 MG TAB.CHEW PO SCH (09:00)
--- NOTE | 2019-09-05 09:00 | NUR ---
MS RN Notes Patient has orders for PO medication at this time. Unsafe to swallow due to altered mental status, and no G-Tube in stoma. Re insertion needed. Per report from night nurse patient admitted for self removal of G-Tube due to being confused. Parker ramsey MD informed of holding meds. Waiting for new orders at this time. No current S/S of distress. Patient resting in bed comfortably. Will continue to monitor.
--- NOTE | 2019-09-05 11:00 | NUR ---
MS RN Notes DR POWELL AT BEDSIDE KUNALSourav SUMP INSERTED IN G-TUBE STOMA. KUB X-RAY WITH GASTROGRAFIN VERBAL ORDER RECIEVED. PLACED IN EMR. WILL CONTINUE TO MONITOR.
--- NOTE | 2019-09-05 13:00 | NUR ---
MS RN Notes Patient Depakote held due to waiting for radiograph confirmation, and waiting for MD CLARKE to use [place] [facility]. Not safe to give Meds at this time.
[2019-09-05] MEDS: *INSULIN REGULAR(HUMULIN R)HUM 100 UNIT/ML VIAL SQ PRN ×2 (13:48→21:41)
[2019-09-05] MEDS ORDERED: DIATR MEGLU/DIATRIZOATE SODIUM 30 ML BOTTLE (GASTROGRAPHIN) ONE (13:56)
[2019-09-05 16:00] VITALS: BP 131/81
--- NOTE | 2019-09-05 17:00 | NUR ---
MS RN Notes Patient 1700 medication held due to waiting for radiograph confirmation, and waiting for MD CLARKE to use [place] [facility]. Not safe to give Meds at this time. Patient is not alert and able to swallow on his own and it is unsafe at this time.
--- NOTE | 2019-09-05 19:00 | NUR ---
MS RN Notes Patient is resting in bed comfortably, no signs or symptoms of distress. Patient endorsed to weight shifter. Medications held, patient NPO. Possible procedure tomorrow for G-Tube placement. Bed in lowest position, call light within reach, all measures taken to ensure client safety.
--- NOTE | 2019-09-05 19:45 | NUR ---
MS RN NOTES PATIENT IN BED AWAKE, A/O TO SELF, BREATHING AND AND UNLABORED, NO SOB/ ACUTE DISTRESS NOTED AT THIS TIME, IV ACCESS IN LFA 18G PATENT AND INTACT INFUSING D5 1/2 NS AT 75CC/HR, NO S/S OF INFILTRATION NOTED, PT KEPT CLEAN, DRY, AND COMFORTABLE, F/C IN PLACED PATENTCY INTACT, WITH YELLOW URINE NOTED, SAFETY MEASURES IN PLACE WITH BED IN LOWEST LOCKED POSITION WITH SIDE RAILS UP X 3, [place] SUMP TUBE IN PLACED TO KEEP STOMA OPEN FOR GI CONSULT TOMORROW AND POSSIBLE PEG PLACEMENT, NO ABNORMALITIES NOTED AT SITE, CALL LIGHT WITHIN REACH, WILL CONTINUE TO MONITOR CLOSELY.
[2019-09-05 20:00] VITALS: BP 136/76
[2019-09-06 04:00] VITALS: BP 137/85
[2019-09-06 06:36] LABS: BASOPHILS % (AUTO) 0.3 % (0.0-2.0); EOSINOPHILS % (AUTO) 0.5 % (0.0-6.0); HEMATOCRIT 38 % (39-51); HEMOGLOBIN 12.7 g/dL (13.5-17.5); LYMPHOCYTES # (AUTO) 1.3 /CMM (0.8-4.8); LYMPHOCYTES % (AUTO) 12.7 % (20.0-44.0); MEAN CORPUSCULAR HGB CONC 33 g/dl (31.0-36.0); MEAN CORPUSCULAR VOLUME 87 fL (80-96); MONOCYTES # (AUTO) 0.8 /CMM (0.1-1.30); MONOCYTES % (AUTO) 8.2 % (2.0-12.0); NEUTROPHILS # (AUTO) 7.8 /CMM (1.8-8.9); NEUTROPHILS % (AUTO) 78.3 % (43.0-81.0); PLATELET COUNT (AUTO) 225 /CMM (150-450); RED BLOOD CELL COUNT(AUTO) 4.39 MIL/uL (4.5-6.0); WHITE BLOOD COUNT (AUTO) 9.9 K/uL (4.3-11.0)
--- NOTE | 2019-09-06 07:01 | NUR ---
RN NOTES, PATIENT IN BED, SLEEPING AT THIS TIME, AT RA BREATHING EVEN AND UNLABORED, NO SOB/ACUTE DISTRESS NOTED AT THIS TIME, NO SIGNIFICANT CHANGE IN CONDITION DURING THE NIGHT, ALL NEEDS PROVIDED, SAFETY PRECAUTIONS IN PLACED, PATIENT IS GOING FOR GT PLACEMENT, NPO SINCE LAST NIGHT, BED LOCKED, AND LOW POSITION, KEPT DRY AND CLEAN, CALL LIGHT WITHIN REACH, WILL ENDORSE CONTINUITY OF CARE TO ONCOMING NURSE.
[2019-09-06 07:07] LABS: CALCIUM, SERUM 9.6 mg/dL (8.5-10.1); CREATININE 0.7 mg/dL (0.6-1.3); MAGNESIUM 1.8 mg/dL (1.8-2.4); POTASSIUM 4.2 mmol/L (3.5-5.1)
[2019-09-06] MEDS: IV D5/0.45 NACL 1,000 ML IV PRN (07:24)
[2019-09-06 08:00] VITALS: BP 132/80
[2019-09-06] MEDS: BLOOD SUGAR DIAGNOSTIC 1 EACH STRIP VI SCH ×4 (08:09→22:38)
[2019-09-06] MEDS: ASPIRIN EC 81 MG TABLET.DR PO SCH (08:31)
[2019-09-06] MEDS: CALCIUM CARB 600MG /VIT D 1 EACH TABLET PO SCH ×2 (08:31→17:24)
[2019-09-06] MEDS: VALPROIC ACID 250 MG/5 ML UDC PO SCH ×3 (08:31→17:24)
[2019-09-06] MEDS: DOCUSATE SODIUM 100 MG CAPSULE PO SCH ×2 (08:31→17:24)
[2019-09-06] MEDS: BENAZEPRIL HCL 20 MG TABLET PO SCH ×2 (08:32→17:24)
[2019-09-06] MEDS: METOPROLOL TARTRATE 50 MG TABLET PO SCH ×2 (08:32→17:25)
[2019-09-06] MEDS: QUETIAPINE FUMARATE 25 MG TABLET PO SCH ×2 (08:32→17:24)
[2019-09-06] MEDS: *INSULIN REGULAR(HUMULIN R)HUM 100 UNIT/ML VIAL SQ PRN (09:17)
--- NOTE | 2019-09-06 11:00 | NUR ---
EDEMA NOTED ON PATIENT'S RIGHT ARM, MED IMPLEMENTATION MANAGER ROUNDED WITH ME, IV LINE STILL FLUSHING WELL, NO SIGNS OF INFILTRATION, PATIENT'S RIGHT ARM IS COMPLETELY IMMOBILE. ORDERED FOR DOPPLER TO R/O DVT.
--- NOTE | 2019-09-06 11:29 | NUR ---
WOUND CARE CONSULT WOUND CARE RECEIVED CONSULT FOR WOUNDS. WOUND CARE WILL DEFER CONSULT AND TREATMENT PLANS TO PLASTIC SURGICAL TEAM WHO ARE CURRENTLY FOLLOWING THIS PATIENT. PATIENT WITH MEMO OF 12. ALL PRESSURE ULCER PREVENTION MEASURES ARE NOTED TO BE IN PLACE. WILL SEE PRN.
--- NOTE | 2019-09-06 13:12 | NUR ---
RN OPENING NOTE: RECEIVED PATIENT IN BED THIS MORNING. PATIENT IS CONFUSED, BUT EASILY AROUSED TO VOICE AND LIGHT TOUCH. PATIENT IS CURRENTLY ON ROOM AIR, NO SIGNS OF RESPIRATORY DISTRESS NOTED. NO SIGNS OF ACUTE DISTRESS NOTED. #18 ON RFA, FLUSHING WELL, SITE C/D/I, NO SIGNS OF COMPLICATION NOTED. PATIENT HAS LOERA, DRAINING WELL, CLEAR AND YELLOW. PATIENT HAD A GT DISLODGEMENT AND IS CURRENTLY NPO D/T SURGICAL INTERVENTIONS LATER TODAY FOR A NEW GT PLACEMENT. SAFETY MEASURES IMPLEMENTED, BED IN LOWEST POSITION, LOCKED, SIDE RAILS UP X2, CALL LIGHT WITHIN REACH. WILL CONTINUE TO MONITOR PATIENT FOR CHANGES.
[2019-09-06] MEDS: INSULIN REGULAR, HUMAN 100 UNIT/ML 3 ML VIAL SQ PRN ×2 (15:46→18:12)
--- NOTE | 2019-09-06 15:54 | NUR ---
PER DIETARY, START PATIENT OFF WITH GLUCERNA 1.2 AT 20CC/HR AND SLOWLY INCREASE THE RATE PATIENT TOLERATES TO REACH 60CC/HR.
[2019-09-06 16:00] VITALS: BP 153/87
[2019-09-06] MEDS ORDERED: GLUCERNA 1.2 1,000 ML BOTTLE NG PRN (17:00)
[2019-09-06] MEDS ORDERED: GLUCERNA 1.2 1,000 ML BOTTLE GT PRN (17:44)
[2019-09-06] MEDS ORDERED: MAGNESIUM HYDROXIDE 30 ML UDC GT PRN (17:45)
[2019-09-06] MEDS ORDERED: QUETIAPINE FUMARATE 25 MG TABLET GT SCH (17:45)
[2019-09-06] MEDS ORDERED: CALCIUM CARB 600MG /VIT D 1 EACH TABLET GT SCH (17:46)
[2019-09-06] MEDS ORDERED: METOPROLOL TARTRATE 50 MG TABLET GT SCH (17:48)
[2019-09-06] MEDS ORDERED: BENAZEPRIL HCL 20 MG TABLET GT SCH (17:50)
[2019-09-06] MEDS ORDERED: MAG HYDROX/AL HYDROX/SIMETH 30 ML UDC GT PRN (17:50)
--- NOTE | 2019-09-06 19:30 | NUR ---
MS RN OPENING NOTE RECEIVED PATIENT IN BED. PATIENT IS NONVERBAL BUT NODS WHEN ASK QUESTIONS. TOLERATING ROOM AIR. RESPIRATIONS ARE EVEN AND UNLABORED. NO S/S SOB NOTED. NO S/JOHN AT THIS TIME. IN NO APPARENT DISTRESS. IV ACCESS IN RFA#18 PATENT AND SALINE LOCKED. GTUBE IS PRESENT, RUNNING GLUCERNA 1.2 @30ML/HR. BED IS LOW AND LOCKED, HOB ELEVATED IN SEMI FOWLERS, SIDE RIALS UP X3, EXTREMITIES OFF LOADED. CALL IGHT WITHIN REACH. WILL CONTINUE TO MONITOR.
[2019-09-06 20:00] VITALS: BP 149/78
--- NOTE | 2019-09-06 20:00 | NUR ---
RN CLOSING NOTE: PATIENT REMAINS IN BED. NO SIGNS OF RESPIRATORY DISTRESS NOTED. NO SIGNS OF ACUTE DISTRESS NOTED. LOERA, DRAINING WELL., CLEAR AND YELLOW. SAFETY MEASURES IMPLEMENTED, BED IN LOWEST POSITION, LOCKED, SIDE RAILS UP X2, CALL LIGHT WITHIN REACH. ENDORSED TO FOLLOWING SHIFT RN FOR CONTINUITY OF CARE.
[2019-09-06] MEDS: HYDROCODONE/APAP 5/325MG 1 EACH TABLET PO PRN (20:49)
--- NOTE | 2019-09-06 20:49 | NUR ---
MS RN NOTE ADMINISTERED PRN NORCO 5/325 FOR PAIN IN INCISION. PATIENT IS S/P GTUBE REPLACEMENT TODAY. ASKED PATIENT IS HE WAS IN PAIN HE NODDED. PATIENT ALSO HAS FACIAL GRIMACING, SWATTING MY HANDS WHEN TRYING TO CHECK GTUBE, MOANING. SANTA CONTINUE TO MONITOR.
[2019-09-07] MEDS: IV D5/0.45 NACL 1,000 ML IV PRN (01:48)
--- NOTE | 2019-09-07 02:00 | NUR ---
MS RN NOTE CHECKED GTUBE RESIDUAL 10ML, GOAL RATE IS 60ML/HR. INCREASED FEEDING 10ML/HR,GLUECERNA 1.2 NOW RUNNING @40ML/HR. WILL CONTINUE TO MONITOR.
[2019-09-07 04:00] VITALS: BP 123/91
[2019-09-07] MEDS: HYDROCODONE/APAP 5/325MG 1 EACH TABLET PO PRN (06:11)
--- NOTE | 2019-09-07 06:11 | NUR ---
MS RN NOTE ADMINISTERED PRN NORCO 5/325 FOR PAIN IN INCISION. PATIENT IS S/P GTUBE REPLACEMENT TODAY. ASKED PATIENT IS HE WAS IN PAIN HE NODDED YES. ASKED IF HE WANTED PAIN MEDICATION HE NODED YES. PATIENT ALSO HAS FACIAL GRIMACING, SWATTING MY HANDS WHEN TRYING TO CHECK GTUBE, MOANING. WILL CONTINUE TO MONITOR.
--- NOTE | 2019-09-07 06:38 | NUR ---
MS RN NOTE PATIENT REFUSED AM LABS, AGREED TO HAVE THEM DRAWN LATER AROUND 0830. EXPLAINED RISK AND BENEFITS. PATIENT NODDED. WILL ENDORSE TO NEXT SHIFT.
--- NOTE | 2019-09-07 06:44 | NUR ---
MS RN CLOSING NOTE PATIENT IN BED. PATIENT IS NONVERBAL BUT NODS. TOLERATING ROOM AIR. RESPIRATIONS ARE EVEN AND UNLABORED. NO SOB NOTED. MANAGED PAIN WITH NORCO 5/325 THROUGHOUT SHIFT. NO DISTRESS NOTED. IV ACCESS MAINTAINED IN RFA#18 RUNNING D51/2NS@75ML/HR. GTUBE IS MAINTAINED, DRESSING CHANGED, RUNNING GLUCERNA 1.2 @50ML/HR. BED IS LOW AND LOCKED, HOB ELEVATED IN SEMI FOWLERS, SIDE RIALS UP X3, EXTREMITIES OFF LOADED. CALL LIGHT WITHIN REACH. WILL ENDORSE TO NEXT SHIFT.
[2019-09-07 08:00] VITALS: BP 131/65
--- NOTE | 2019-09-07 08:00 | NUR ---
MS RN NOTES PATIENT IN BED RESTING NO SOB OR ACUTE DISTRESS NOTED. PATIENT RESPONDS TO TOUCH. NONE VERBAL. PERIPHERAL IV INTACT PATENT. BED IN LOW LOCKED POSITION. CALL LIGHT WITHIN REACH. PATIENT ON G-TUBE FEEDING AT 50ML/HR. WILL CONTINUE TO MONITOR.
[2019-09-07] MEDS: BLOOD SUGAR DIAGNOSTIC 1 EACH STRIP VI SCH ×2 (08:42→12:12)
[2019-09-07] MEDS: INSULIN REGULAR, HUMAN 100 UNIT/ML 3 ML VIAL SQ PRN ×2 (08:43→12:15)
[2019-09-07 08:49] VITALS: BP 131/65
[2019-09-07] MEDS: VALPROIC ACID 250 MG/5 ML UDC GT SCH ×2 (08:49→12:18)
[2019-09-07] MEDS ORDERED: DOCUSATE SODIUM LIQ 100 MG/10 ML UDC GT SCH (09:00)
[2019-09-07] MEDS ORDERED: ASPIRIN 81 MG TAB.CHEW GT SCH (09:00)
--- NOTE | 2019-09-07 10:16 | NUR ---
MS RN NOTES PATIENT SEEN BY MD AND EVALUATED ORDERS TO DISCHARGE PATIENT BACK TO NURSING FACILITY. NOTED AND CARRIED OUT.
[2019-09-07 14:33] LABS: BASOPHILS # (AUTO) 0.1 /CMM (0.0-0.2); BASOPHILS % (AUTO) 0.7 % (0.0-2.0); EOSINOPHILS % (AUTO) 2.7 % (0.0-6.0); HEMATOCRIT 36 % (39-51); HEMOGLOBIN 11.9 g/dL (13.5-17.5); LYMPHOCYTES # (AUTO) 1.8 /CMM (0.8-4.8); LYMPHOCYTES % (AUTO) 23.3 % (20.0-44.0); MEAN CORPUSCULAR HGB CONC 33 g/dl (31.0-36.0); MEAN CORPUSCULAR VOLUME 88 fL (80-96); MONOCYTES # (AUTO) 0.8 /CMM (0.1-1.30); MONOCYTES % (AUTO) 11.2 % (2.0-12.0); NEUTROPHILS # (AUTO) 4.7 /CMM (1.8-8.9); NEUTROPHILS % (AUTO) 62.1 % (43.0-81.0); PLATELET COUNT (AUTO) 224 /CMM (150-450); RED BLOOD CELL COUNT(AUTO) 4.14 MIL/uL (4.5-6.0); WHITE BLOOD COUNT (AUTO) 7.6 K/uL (4.3-11.0)
[2019-09-07 14:40] LABS: CALCIUM, SERUM 9.8 mg/dL (8.5-10.1); CREATININE 0.7 mg/dL (0.6-1.3); POTASSIUM 4.6 mmol/L (3.5-5.1)
--- NOTE | 2019-09-07 15:41 | NUR ---
MS RN NOTES PATIENT DISCHARGED TO SNF IN STABLE CONDITION. PERIPHERAL IV REMOVED WITH MINIMAL BLEEDING. REPORT GIVEN TO [facility]PER[facility] AT BEDSIDE. ALSO REPORT CALLED TO KALIE SILVA AT SNF. AWARE OF ALL ABNORMAL LABS AND TESTS. PATIENT TOLERATED FEEDING WELL. ID BANDS REMOVED. DISCHARGE INSTRUCTIONS PROVIDED TO SN AT [facility]. VOICE MAIL LEFT TO PATIENTS TO INFORM OF DISCHARGE. PATIENT TRANSFERRED BY EMT.
== END 2019-09-07 15:31 | DRG 393 ==
LOC: ER 23:21 → MEDSG1 09-05 01:27
PROVIDERS: ADMIT Family Medicine; ATTEND Student in an Organized Health Care Education/Training Program
PROC: 0DH63UZ Insertion of Feeding Device into Stomach, Percutaneous Approach (ICD-10-PCS; principal; 2019-09-06)
DX: Z43.1 Encounter for attention to gastrostomy (principal); N17.0 Acute kidney failure with tubular necrosis; E46 Unspecified protein-calorie malnutrition; F03.90 Unspecified dementia, unspecified severity, without behavioral disturbance, psychotic disturbance, mood disturbance, and anxiety; Z86.73 Personal history of transient ischemic attack (TIA), and cerebral infarction without residual deficits; R13.10 Dysphagia, unspecified; L89.156 Pressure-induced deep tissue damage of sacral region; I10 Essential (primary) hypertension; E78.5 Hyperlipidemia, unspecified; I35.0 Nonrheumatic aortic (valve) stenosis; E11.65 Type 2 diabetes mellitus with hyperglycemia; Z68.20 Body mass index [BMI] 20.0-20.9, adult; E86.9 Volume depletion, unspecified; F20.9 Schizophrenia, unspecified
CPT/HCPCS: 36415; 43246; 74018; 80048-TC; 82962-TC; 83735-TC; 84100-TC; 85025-TC; 85610-TC; 85730-TC; 86850-TC; 87081-TC; 93971-TC; 97110-TC; 97112-TC; 97530-TC; G0378; J0690; J1815; J3490; Q9963